=== PATIENT | female | born 1960 | race African-American/Black ===

== ENCOUNTER 2016-07-08 13:05 | Inpatient (IN) | payer OTHER ==
[~2016-07-08] VITALS: Ht 170.2 cm; Wt 62.9 kg
[~2016-07-08 13:05] MED LIST: ACLI400A2 IH; ALBU8HFA IH; BUDE10.2 IH; FLUC10SU PO; FLUT16H NASAL; GUAI-787 PO; MONT10TA21 PO; OXYC-158 PO; PANT40TA25 PO; PRED10 PO; PRED20 PO; PRED5 PO; PROMVCC5L PO; SUMA25TA9 PO; TOPI100 PO
[2016-07-08] MEDS ORDERED: ALBUTEROL SULFATE 2.5 MG/0.5 ML NEB SOLUTION NEB ONE (13:15)
[2016-07-08] MEDS ORDERED: IPRATROPIUM BROMIDE 0.5 MG/2.5 ML NEB SOLUTION NEB ONE ×4 (13:26→14:30)
[2016-07-08] MEDS ORDERED: ALBUTEROL SULFATE 5 MG/ML 20 ML NEB SOLN [BULK] NEB ONE ×3 (13:26→13:30)
[2016-07-08] MEDS ORDERED: DEXAMETHASONE SOD PHOS 4 MG/ML 5 ML VIAL IVP ONE (13:30)
[2016-07-08] MEDS ORDERED: LORazepam 2 MG/ML VIAL IVP ONE (13:45)
[2016-07-08] MEDS ORDERED: SODIUM CHLORIDE 0.9% 1,000 ML IV ONE ×2 (14:30→15:00)
[2016-07-08] MEDS ORDERED: LEVALBUTEROL HCL 1.25 MG/0.5 ML NEB SOLUTION NEB ONE (14:30)
[2016-07-08 14:54] LABS: BASOPHILS # (AUTO) 0.04 K/uL (0.00-0.20); BASOPHILS % (AUTO) 0.4 % (0.0-2.0); EOSINOPHILS # (AUTO) 4.65 K/uL (0.00-0.70); HEMATOCRIT 44.6 % (36-46); HEMOGLOBIN 14.3 g/dL (12.0-16.0); LYMPHOCYTES # (AUTO) 1.3 K/uL (1.0-4.8); LYMPHOCYTES % (AUTO) 12.3 % (22.0-44.0); MEAN CORPUSCULAR HEMOGLOBIN 29.5 pg (26.0-34.0); MEAN CORPUSCULAR VOLUME 92 fL (80-100); MONOCYTES # (AUTO) 0.6 K/uL (0.1-1.0); MONOCYTES % (AUTO) 5.6 % (2.0-9.0); NEUTROPHILS # (AUTO) 3.8 K/uL (1.8-7.7); NEUTROPHILS % (AUTO) 36.6 % (40.0-70.0); PLATELET COUNT (AUTO) 266 K/uL (150-450); RED BLOOD CELL COUNT(AUTO) 4.84 MIL/uL (4.00-5.20); RED CELL DISTRIBUTION WIDTH 15.2 % (11.5-14.5); WHITE BLOOD COUNT (AUTO) 10.3 K/uL (4.5-11.0)
[2016-07-08 14:55] LABS: EOSINOPHILS % (AUTO) 45.12 % (1.0-6.0)
[2016-07-08 15:04] LABS: ALBUMIN 3.3 g/dL (3.4-5.0); BILIRUBIN,TOTAL 0.3 mg/dL (0.1-1.0); CALCIUM, TOTAL 8.5 mg/dL (8.8-10.5); CREATININE 1.15 mg/dL (0.60-1.30); TOTAL PROTEIN, SERUM 6.4 g/dL (6.4-8.2)
[2016-07-08 18:56] VITALS: BP 159/77
[2016-07-08] MEDS ORDERED: ALBUTEROL SULFATE 2.5 MG/0.5 ML NEB SOLUTION NEB SCH (19:00)
[2016-07-08] MEDS ORDERED: IPRATROPIUM BROMIDE 0.5 MG/2.5 ML NEB SOLUTION NEB SCH (19:00)
[2016-07-08] MEDS ORDERED: POTASSIUM CHLORIDE 20 MEQ ER TABLET PO PRN ×3 (19:00→22:00)
[2016-07-08] MEDS ORDERED: POTASSIUM CHL 10 MEQ/WATER 50 ML IV PRN ×2 (19:00→22:00)
[2016-07-08 19:15] LABS: ABG A-A DIFF O2 28.6 mmHg (10-20.0); ABG BASE EXCESS -6.2 mmol/L (-2.0-3.0); ABG HCO3 19.9 mmol/L (22.0-26.0); ABG OXYHEMOGLOBIN 91.7 % (94.0-100.0); ABG PCO2 36 mmHg (35-45); ABG PH 7.346 (7.35-7.450); ALLEN TEST, BLOOD GAS Positive; TEMPERATURE, FAHRENHEIT, BG 98.6 FAHREN (96.0-98.6)
[2016-07-08 19:41] VITALS: BP 133/88
[2016-07-08] MEDS ORDERED: HEPARIN SODIUM,PORCINE 5,000 UNITS/ML VIAL SQ SCH (21:00)
[2016-07-08] MEDS ORDERED: MAGNESIUM HYDROXIDE SUSPENSION 30 ML UDCUP PO PRN (22:00)
[2016-07-08] MEDS ORDERED: SODIUM CHLORIDE 0.45% 1,000 ML IV ONE (22:00)
[2016-07-08] MEDS ORDERED: ACETAMINOPHEN 325 MG TABLET PO PRN (22:00)
[2016-07-08] MEDS: HEPARIN SODIUM,PORCINE 5,000 UNITS/ML VIAL SQ SCH (23:12)
[2016-07-08] MEDS: MethylPREDNISolone SOD SUCC 125 MG/2 ML VIAL IVP SCH (23:15)
[2016-07-08] MEDS: ALBUTEROL SULFATE 2.5 MG/0.5 ML NEB SOLUTION NEB SCH (23:18)
[2016-07-08] MEDS: IPRATROPIUM BROMIDE 0.5 MG/2.5 ML NEB SOLUTION NEB SCH (23:19)
[2016-07-08] MEDS: OxyCODONE HCL/ACETAMINOPHEN 5-325 MG TABLET PO PRN (23:23)
[2016-07-08 23:32] VITALS: BP 138/94
[2016-07-09] MEDS ORDERED: MethylPREDNISolone SOD SUCC 40 MG/ML VIAL IVP SCH
[2016-07-09] MEDS: ALBUTEROL SULFATE 2.5 MG/0.5 ML NEB SOLUTION NEB SCH ×6 (03:07→23:22)
[2016-07-09] MEDS: IPRATROPIUM BROMIDE 0.5 MG/2.5 ML NEB SOLUTION NEB SCH ×6 (03:07→23:22)
[2016-07-09 04:52] VITALS: BP 134/90
[2016-07-09] MEDS: MethylPREDNISolone SOD SUCC 125 MG/2 ML VIAL IVP SCH ×4 (05:58→23:51)
[2016-07-09 07:16] LABS: ANION GAP 13 mmol/L (8-16); CALCIUM, TOTAL 8.4 mg/dL (8.8-10.5); CARBON DIOXIDE 20 mmol/L (22-29); CHLORIDE 113 mmol/L (98-107); CREATININE 1.09 mg/dL (0.60-1.30); GLOMERULAR FILTR. RATE CALC > 60 mL/min (>60); POTASSIUM 3.6 mmol/L (3.5-5.1); SODIUM SERUM 146 mmol/L (136-145); UREA NITROGEN, BLOOD 9 mg/dL (7-18)
[2016-07-09 07:37] VITALS: BP 145/65
[2016-07-09] MEDS ORDERED: POTASSIUM CHLORIDE 20 MEQ ER TABLET PO PRN (07:45)
[2016-07-09] MEDS: OxyCODONE HCL/ACETAMINOPHEN 5-325 MG TABLET PO PRN ×2 (08:00→17:34)
[2016-07-09] MEDS: HEPARIN SODIUM,PORCINE 5,000 UNITS/ML VIAL SQ SCH ×3 (08:00→23:51)
[2016-07-09] MEDS: POTASSIUM CHLORIDE 20 MEQ ER TABLET PO PRN (08:00)
[2016-07-09] MEDS: ASPIRIN 81 MG CHEWABLE TABLET PO SCH (08:01)
[2016-07-09] MEDS: PANTOPRAZOLE SODIUM 40 MG DR TABLET PO SCH (08:01)
[2016-07-09] MEDS: DOCUSATE SODIUM 100 MG CAPSULE PO SCH ×2 (08:02→20:34)
[2016-07-09] MEDS ORDERED: PANTOPRAZOLE SODIUM 40 MG DR TABLET PO SCH (09:00)
[2016-07-09 11:30] VITALS: BP 155/103
[2016-07-09 14:48] LABS: APPEARANCE,URINE CLEAR (CLEAR); GLUCOSE, URINE (UA) NEGATIVE (NEGATIVE); KETONES,URINE NEGATIVE (NEGATIVE); LEUKOCYTE ESTERASE ,URINE NEGATIVE (NEGATIVE); OCCULT BLOOD,URINE NEGATIVE (NEGATIVE); PROTEIN,URINE NEGATIVE (NEGATIVE)
[2016-07-09 14:52] LABS: ADD UA MICROSCOPIC NO
[2016-07-09 15:27] VITALS: BP 150/80
[2016-07-09 20:19] VITALS: BP 151/81
[2016-07-09] MEDS: BENZONATATE 100 MG CAPSULE PO SCH (20:33)
[2016-07-09] MEDS: GuaiFENesin/CODEINE [SUGAR FREE] 200-20MG/10 ML SYRUP UDCUP PO PRN (20:34)
[2016-07-09] MEDS: ZOLPIDEM TARTRATE 5 MG TABLET PO PRN (23:51)
[2016-07-10] VITALS (8 sets, daily range): BP systolic 130–162; BP diastolic 80–106
[2016-07-10] MEDS: SUMAtriptan SUCCINATE 25 MG TABLET PO PRN ×2 (02:03→15:53)
[2016-07-10] MEDS: GuaiFENesin/D-METHORPHAN [SUGAR-FREE] 200-20MG/10 ML SYRUP UDCUP PO PRN ×2 (02:03→08:29)
[2016-07-10] MEDS: IPRATROPIUM BROMIDE 0.5 MG/2.5 ML NEB SOLUTION NEB SCH ×6 (03:00→23:08)
[2016-07-10] MEDS: ALBUTEROL SULFATE 2.5 MG/0.5 ML NEB SOLUTION NEB SCH ×6 (03:00→23:08)
[2016-07-10] MEDS: MethylPREDNISolone SOD SUCC 125 MG/2 ML VIAL IVP SCH ×4 (06:07→23:11)
[2016-07-10 06:31] LABS: ANION GAP 10 mmol/L (8-16); CALCIUM, TOTAL 8.8 mg/dL (8.8-10.5); CARBON DIOXIDE 23 mmol/L (22-29); CHLORIDE 113 mmol/L (98-107); CREATININE 0.97 mg/dL (0.60-1.30); GLOMERULAR FILTR. RATE CALC > 60 mL/min (>60); POTASSIUM 3.9 mmol/L (3.5-5.1); SODIUM SERUM 146 mmol/L (136-145); UREA NITROGEN, BLOOD 12 mg/dL (7-18)
[2016-07-10] MEDS: HEPARIN SODIUM,PORCINE 5,000 UNITS/ML VIAL SQ SCH ×3 (08:29→23:12)
[2016-07-10] MEDS: PANTOPRAZOLE SODIUM 40 MG DR TABLET PO SCH (08:30)
[2016-07-10] MEDS: ASPIRIN 81 MG CHEWABLE TABLET PO SCH (08:30)
[2016-07-10] MEDS: BENZONATATE 100 MG CAPSULE PO SCH ×4 (08:30→20:51)
[2016-07-10] MEDS: DOCUSATE SODIUM 100 MG CAPSULE PO SCH ×2 (08:30→20:51)
[2016-07-10] MEDS: POTASSIUM CHLORIDE 20 MEQ ER TABLET PO PRN (12:09)
[2016-07-10] MEDS ORDERED: 0.9% SODIUM CHLORIDE 10 ML SYRINGE IVP PRN (15:15)
[2016-07-10] MEDS: GuaiFENesin/CODEINE [SUGAR FREE] 200-20MG/10 ML SYRUP UDCUP PO PRN (23:11)
[2016-07-10] MEDS: OxyCODONE HCL/ACETAMINOPHEN 5-325 MG TABLET PO PRN (23:12)
[2016-07-11] MEDS: ZOLPIDEM TARTRATE 5 MG TABLET PO PRN (02:24)
[2016-07-11] MEDS: IPRATROPIUM BROMIDE 0.5 MG/2.5 ML NEB SOLUTION NEB SCH ×4 (03:00→12:20)
[2016-07-11] MEDS: ALBUTEROL SULFATE 2.5 MG/0.5 ML NEB SOLUTION NEB SCH ×4 (03:00→12:20)
[2016-07-11 04:35] VITALS: BP 146/91
[2016-07-11] MEDS: MethylPREDNISolone SOD SUCC 125 MG/2 ML VIAL IVP SCH ×2 (06:13→11:59)
[2016-07-11 07:35] VITALS: BP 147/93
[2016-07-11 07:39] VITALS: BP 121/78
[2016-07-11] MEDS: HEPARIN SODIUM,PORCINE 5,000 UNITS/ML VIAL SQ SCH (08:53)
[2016-07-11] MEDS: ASPIRIN 81 MG CHEWABLE TABLET PO SCH (08:53)
[2016-07-11] MEDS: DOCUSATE SODIUM 100 MG CAPSULE PO SCH (08:54)
[2016-07-11] MEDS: BENZONATATE 100 MG CAPSULE PO SCH ×2 (08:54→11:59)
[2016-07-11] MEDS: PANTOPRAZOLE SODIUM 40 MG DR TABLET PO SCH (08:54)
[2016-07-11 11:28] VITALS: BP 158/116
[2016-07-11] MEDS: GuaiFENesin/CODEINE [SUGAR FREE] 200-20MG/10 ML SYRUP UDCUP PO PRN (11:59)
== END 2016-07-11 14:05 | disposition home or self-care (01) | DRG 140 ==
LOC: EMS 13:07 → 5S 17:57
PROVIDERS: ADMIT Internal Medicine; ATTEND Internal Medicine
DX: J44.1 Chronic obstructive pulmonary disease with (acute) exacerbation (principal); J96.21 Acute and chronic respiratory failure with hypoxia; E87.0 Hyperosmolality and hypernatremia; E44.0 Moderate protein-calorie malnutrition; J45.901 Unspecified asthma with (acute) exacerbation; E87.6 Hypokalemia; F19.10 Other psychoactive substance abuse, uncomplicated; I10 Essential (primary) hypertension; G43.909 Migraine, unspecified, not intractable, without status migrainosus; F14.10 Cocaine abuse, uncomplicated; F17.210 Nicotine dependence, cigarettes, uncomplicated; F15.10 Other stimulant abuse, uncomplicated; Z91.19 Patient's noncompliance with other medical treatment and regimen; Z88.5 Allergy status to narcotic agent; Z79.52 Long term (current) use of systemic steroids; Z79.899 Other long term (current) drug therapy; Z90.49 Acquired absence of other specified parts of digestive tract; Z68.21 Body mass index [BMI] 21.0-21.9, adult
CPT/HCPCS: 82805; 84132; 94640; 94644; 94660; 96361; 96374; 96375; 99291; J1100; J1644; J2060; J2930; J7030

== ENCOUNTER 2016-08-17 18:59 | Emergency (ER) | payer OTHER ==
[~2016-08-17] VITALS: Ht 170.2 cm; Wt 58.6 kg
[~2016-08-17 18:59] MED LIST changes: -FLUC10SU PO; -FLUT16H NASAL; -GUAI-787 PO; -OXYC-158 PO
[2016-08-17] MEDS ORDERED: 0.9% SODIUM CHLORIDE 5 ML NEB SOLUTION NEB ONE (19:12)
[2016-08-17] MEDS ORDERED: ALBUTEROL SULFATE 5 MG/ML 20 ML NEB SOLN [BULK] NEB ONE (19:15)
[2016-08-17] MEDS ORDERED: IPRATROPIUM BROMIDE 0.5 MG/2.5 ML NEB SOLUTION NEB ONE ×2 (19:15→23:00)
[2016-08-17] MEDS ORDERED: MethylPREDNISolone SOD SUCC 125 MG/2 ML VIAL IVP ONE ×2 (19:30→23:00)
[2016-08-17] MEDS ORDERED: MORPHINE SULFATE 2 MG/ML SYRINGE IVP ONE (19:45)
[2016-08-17] MEDS ORDERED: CefTRIAXone 1 GM/DEXTROSE 50 ML IV ONE (19:45)
[2016-08-17] MEDS ORDERED: ONDANSETRON HCL 4 MG/2 ML VIAL IVP ONE (19:45)
[2016-08-17 20:08] LABS: BASOPHILS # (AUTO) 0.08 K/uL (0.00-0.20); BASOPHILS % (AUTO) 0.6 % (0.0-2.0); EOSINOPHILS # (AUTO) 4.35 K/uL (0.00-0.70); EOSINOPHILS % (AUTO) 34.13 % (1.0-6.0); HEMATOCRIT 44.5 % (36-46); HEMOGLOBIN 14.4 g/dL (12.0-16.0); LYMPHOCYTES # (AUTO) 2.1 K/uL (1.0-4.8); LYMPHOCYTES % (AUTO) 16.5 % (22.0-44.0); MEAN CORPUSCULAR HEMOGLOBIN 29.5 pg (26.0-34.0); MEAN CORPUSCULAR HGB CONC 32.3 G/dL (31.0-37.0); MEAN CORPUSCULAR VOLUME 91 fL (80-100); MONOCYTES # (AUTO) 0.8 K/uL (0.1-1.0); MONOCYTES % (AUTO) 6.5 % (2.0-9.0); NEUTROPHILS # (AUTO) 5.4 K/uL (1.8-7.7); NEUTROPHILS % (AUTO) 42.2 % (40.0-70.0); PLATELET COUNT (AUTO) 297 K/uL (150-450); RED BLOOD CELL COUNT(AUTO) 4.87 MIL/uL (4.00-5.20); RED CELL DISTRIBUTION WIDTH 14.6 % (11.5-14.5); WHITE BLOOD COUNT (AUTO) 12.7 K/uL (4.5-11.0)
[2016-08-17 20:14] LABS: ALBUMIN 3.6 g/dL (3.4-5.0); BILIRUBIN,TOTAL 0.2 mg/dL (0.1-1.0); CALCIUM, TOTAL 8.9 mg/dL (8.8-10.5); CREATININE 1.27 mg/dL (0.60-1.30); TOTAL PROTEIN, SERUM 6.8 g/dL (6.4-8.2)
[2016-08-17] MEDS ORDERED: POTASSIUM CHLORIDE 20 MEQ ER TABLET PO ONE (20:45)
[2016-08-17] MEDS ORDERED: ALBUTEROL SULFATE 2.5 MG/0.5 ML NEB SOLUTION NEB ONE (23:00)
[2016-08-18 01:43] VITALS: BP 120/66
== END 2016-08-18 01:50 | disposition home or self-care (01) ==
LOC: EMS 19:01
DX: J45.909 Unspecified asthma, uncomplicated (principal); Z88.5 Allergy status to narcotic agent
CPT/HCPCS: 36415; 71020; 80053; 84484; 85025; 93005; 94640 ×2; 96365; 96375; 96376; 99285; J0696; J2270; J2405; J2930; J7611; J7613

== ENCOUNTER 2016-12-07 15:41 | Emergency (ER) | payer OTHER ==
[~2016-12-07] VITALS: Ht 167.6 cm; Wt 56.8 kg
[~2016-12-07 15:41] MED LIST changes: -ACLI400A2 IH; +AUD NEB; -BUDE10.2 IH; -MONT10TA21 PO; -PANT40TA25 PO; -PROMVCC5L PO; -TOPI100 PO
[2016-12-07] MEDS ORDERED: DILT30 PO (15:59)
[2016-12-07] MEDS ORDERED: OMEP20 PO (15:59)
[2016-12-07] MEDS ORDERED: TOPI25 PO (15:59)
[2016-12-07] MEDS ORDERED: FURO20 PO (15:59)
[2016-12-07] MEDS ORDERED: MONT10TA21 PO (15:59)
[2016-12-07] MEDS ORDERED: ALBUTEROL SULFATE 2.5 MG/0.5 ML NEB SOLUTION NEB ONE (16:30)
[2016-12-07] MEDS ORDERED: IPRATROPIUM BROMIDE 0.5 MG/2.5 ML NEB SOLUTION NEB ONE (16:30)
[2016-12-07 17:09] LABS: HEMATOCRIT 40.8 % (36-46); HEMOGLOBIN 13.7 g/dL (12.0-16.0); MEAN CORPUSCULAR HEMOGLOBIN 30.5 pg (26.0-34.0); MEAN CORPUSCULAR HGB CONC 33.6 G/dL (31.0-37.0); MEAN CORPUSCULAR VOLUME 91 fL (80-100); PLATELET COUNT (AUTO) 222 K/uL (150-450); WHITE BLOOD COUNT (AUTO) 8.2 K/uL (4.5-11.0)
[2016-12-07 17:22] LABS: ANION GAP 9 mmol/L (8-16); CALCIUM, TOTAL 8.5 mg/dL (8.8-10.5); CARBON DIOXIDE 24 mmol/L (22-29); CHLORIDE 114 mmol/L (98-107); CREATININE 1.44 mg/dL (0.60-1.30); GLOMERULAR FILTR. RATE CALC 46 mL/min (>60); POTASSIUM 3.4 mmol/L (3.5-5.1); PROTHROMBIN TIME 10.1 SEC (9.4-11.6); SODIUM SERUM 147 mmol/L (136-145); UREA NITROGEN, BLOOD 10 mg/dL (7-18)
[2016-12-07 17:37] LABS: B-TYPE NATRIURETIC PEPTIDE 58 pg/mL (0-100)
[2016-12-07 17:50] LABS: ALANINE AMINOTRANSFERASE 13 U/L (12-78); ALBUMIN 3.4 g/dL (3.4-5.0); ASPARTATE AMINOTRANSFERASE 18 U/L (15-37); BILIRUBIN,TOTAL 0.4 mg/dL (0.1-1.0); CREATINE KINASE MB 2.7 ng/mL (0-5); CREATINE KINASE, TOTAL 223 U/L (26-192)
[2016-12-07 18:19] LABS: EOSINOPHILS % (MANUAL) 30 % (1-6); LYMPHOCYTES % (MANUAL) 8 % (22-44); TOTAL CELLS COUNTED 100
[2016-12-07 18:22] LABS: RBC MORPHOLOGY COMMENT NORMAL RBC MORPH
[2016-12-07] MEDS ORDERED: TraMADol HCL 50 MG TABLET PO ONE (19:15)
[2016-12-07 19:47] LABS: APPEARANCE,URINE CLEAR (CLEAR); GLUCOSE, URINE (UA) NEGATIVE (NEGATIVE); KETONES,URINE NEGATIVE (NEGATIVE); LEUKOCYTE ESTERASE ,URINE NEGATIVE (NEGATIVE); OCCULT BLOOD,URINE NEGATIVE (NEGATIVE); PROTEIN,URINE NEGATIVE (NEGATIVE)
[2016-12-07 19:48] LABS: ADD UA MICROSCOPIC NO
[2016-12-07 20:10] VITALS: BP 135/56
== END 2016-12-07 20:14 | disposition home or self-care (01) ==
LOC: EMS 15:43
DX: S20.219A Contusion of unspecified front wall of thorax, initial encounter (principal); I10 Essential (primary) hypertension; J44.9 Chronic obstructive pulmonary disease, unspecified; J45.909 Unspecified asthma, uncomplicated; F14.10 Cocaine abuse, uncomplicated; W18.39XA Other fall on same level, initial encounter; Y93.89 Activity, other specified; Y92.89 Other specified places as the place of occurrence of the external cause; Y99.8 Other external cause status
CPT/HCPCS: 36415; 71010; 71250; 80053; 80307; 81003; 82550; 82553; 83880; 84484; 85025; 85610; 85730; 93005; 94640; 99285; J7613

== ENCOUNTER 2016-12-29 08:13 | Inpatient (IN) | payer OTHER ==
[~2016-12-29] VITALS: Ht 167.6 cm; Wt 62.5 kg
[~2016-12-29 08:13] MED LIST changes: +DILT30 PO; +FURO20 PO; +MONT10TA21 PO; +OMEP20 PO; -PRED10 PO; -PRED20 PO; -PRED5 PO; +TOPI25 PO
[2016-12-29] MEDS ORDERED: ALBUTEROL SULFATE 5 MG/ML 20 ML NEB SOLN [BULK] NEB ONE (08:30)
[2016-12-29] MEDS ORDERED: MethylPREDNISolone SOD SUCC 125 MG/2 ML VIAL IVP ONE (08:30)
[2016-12-29] MEDS ORDERED: IPRATROPIUM BROMIDE 0.5 MG/2.5 ML NEB SOLUTION NEB ONE (08:30)
[2016-12-29] MEDS ORDERED: 0.9% SODIUM CHLORIDE 15 ML NEB SOLUTION NEB ONE ×2 (08:41→08:48)
[2016-12-29 08:57] LABS: BASOPHILS % (AUTO) 0.7 % (0.0-2.0); HEMATOCRIT 41.7 % (36-46); HEMOGLOBIN 13.9 g/dL (12.0-16.0); LYMPHOCYTES # (AUTO) 1.3 K/uL (1.0-4.8); LYMPHOCYTES % (AUTO) 23.9 % (22.0-44.0); MEAN CORPUSCULAR HEMOGLOBIN 30.3 pg (26.0-34.0); MEAN CORPUSCULAR HGB CONC 33.3 G/dL (31.0-37.0); MEAN CORPUSCULAR VOLUME 91 fL (80-100); MONOCYTES # (AUTO) 0.4 K/uL (0.1-1.0); MONOCYTES % (AUTO) 6.9 % (2.0-9.0); NEUTROPHILS # (AUTO) 1.9 K/uL (1.8-7.7); NEUTROPHILS % (AUTO) 33.8 % (40.0-70.0); PLATELET COUNT (AUTO) 320 K/uL (150-450); RED CELL DISTRIBUTION WIDTH 14.8 % (11.5-14.5)
[2016-12-29 09:02] LABS: EOSINOPHILS % (AUTO) 34.7 % (1.0-6.0)
[2016-12-29 09:19] LABS: ANION GAP 6 mmol/L (8-16); CARBON DIOXIDE 30 mmol/L (22-29); CHLORIDE 111 mmol/L (98-107); CREATININE 1.16 mg/dL (0.60-1.30); GLOMERULAR FILTR. RATE CALC 59 mL/min (>60); GLUCOSE,RANDOM 101 mg/dL (70-110); POTASSIUM 4.3 mmol/L (3.5-5.1); SODIUM SERUM 147 mmol/L (136-145); UREA NITROGEN, BLOOD 13 mg/dL (7-18)
[2016-12-29 09:23] LABS: B-TYPE NATRIURETIC PEPTIDE 35 pg/mL (0-100)
[2016-12-29 09:25] LABS: ALANINE AMINOTRANSFERASE 16 U/L (12-78); ALBUMIN 3.4 g/dL (3.4-5.0); ALKALINE PHOSPHATASE 107 U/L (46-116); ASPARTATE AMINOTRANSFERASE 15 U/L (15-37); BILIRUBIN,TOTAL 0.1 mg/dL (0.1-1.0); CREATINE KINASE, TOTAL 62 U/L (26-192); TOTAL PROTEIN, SERUM 6.5 g/dL (6.4-8.2)
[2016-12-29] MEDS ORDERED: SODIUM CHLORIDE 0.9% 1,000 ML IV ONE (09:30)
[2016-12-29] MEDS ORDERED: IBUPROFEN 600 MG TABLET PO ONE (10:00)
[2016-12-29] MEDS ORDERED: ACETAMINOPHEN 325 MG TABLET PO PRN ×2 (10:00→13:45)
[2016-12-29] MEDS ORDERED: ONDANSETRON HCL 4 MG/2 ML VIAL IVP PRN (10:00)
[2016-12-29] MEDS: IPRATROPIUM BROMIDE 0.5 MG/2.5 ML NEB SOLUTION NEB SCH ×6 (10:29→23:00)
[2016-12-29] MEDS: ALBUTEROL SULFATE 2.5 MG/0.5 ML NEB SOLUTION NEB SCH ×6 (10:29→23:00)
[2016-12-29 12:38] VITALS: BP 135/80
[2016-12-29] MEDS ORDERED: MORPHINE SULFATE 2 MG/ML SYRINGE IVP PRN (13:45)
[2016-12-29] MEDS ORDERED: BISACODYL 10 MG RECTAL RECTAL SUPPOSITORY PR PRN (13:45)
[2016-12-29] MEDS ORDERED: MAGNESIUM HYDROXIDE SUSPENSION 30 ML UDCUP PO PRN (13:45)
[2016-12-29] MEDS ORDERED: CefTRIAXone 1 GM/DEXTROSE 50 ML IV SCH (13:45)
[2016-12-29] MEDS ORDERED: AZITHROMYCIN 500 MG/NS 250 ML IV SCH (13:45)
[2016-12-29] MEDS ORDERED: SODIUM CHLORIDE 0.9% 250 ML IV ONE (15:10)
[2016-12-29] MEDS: HYDROCODONE/ACETAMINOPHEN 5-325 MG TABLET PO PRN ×2 (15:20→20:00)
[2016-12-29] MEDS: BENZONATATE 100 MG CAPSULE PO SCH ×2 (15:20→20:01)
[2016-12-29] MEDS: HEPARIN SODIUM,PORCINE 5,000 UNITS/ML VIAL SQ SCH ×2 (15:21→23:07)
[2016-12-29] MEDS: DILTIAZEM HCL 30 MG TABLET PO SCH ×2 (15:21→20:01)
[2016-12-29 15:43] VITALS: BP 144/82
[2016-12-29] MEDS: LORazepam 1 MG TABLET PO PRN ×2 (17:04→22:58)
[2016-12-29] MEDS: MethylPREDNISolone SOD SUCC 125 MG/2 ML VIAL IVP SCH ×2 (17:05→23:06)
[2016-12-29 18:10] LABS: ABG A-A DIFF O2 51.5 mmHg (10-20.0); ABG BASE EXCESS -10.1 mmol/L (-2.0-3.0); ABG CARBOXYHEMOGLOBIN 0.5 % (0.0-1.5); ABG HCO3 17.6 mmol/L (22.0-26.0); ABG METHEMOGLOBIN 0.3 % (0.0-1.5); ABG OXYGEN CONTENT 18.8 mL/dL (15.0-23.0); ABG OXYGEN SATURATION 98.4 % (95.0-98.0); ABG OXYHEMOGLOBIN 97.6 % (94.0-100.0); ABG PCO2 30 mmHg (35-45); ABG PH 7.341 (7.35-7.450); ABG TOTAL HEMOGLOBIN 13.6 G/dL (12.0-18.0); PO2, ARTERIAL BG 113.1 mmHg (84.0-92.0); SOURCE, BLOOD GAS ARTERIAL; TEMPERATURE, FAHRENHEIT, BG 98.6 FAHREN (96.0-98.6)
[2016-12-29 18:11] LABS: O2 DEVICE,BLOOD GAS CANNULA (ROOM AIR); SITE, BLOOD GAS LFT RADIAL
[2016-12-29 19:43] VITALS: BP 142/80
[2016-12-29] MEDS: GuaiFENesin SR 600 MG ER TABLET PO SCH (20:00)
[2016-12-29] MEDS: DOCUSATE SODIUM 100 MG CAPSULE PO SCH (20:01)
[2016-12-29] MEDS: FUROSEMIDE 20 MG TABLET PO SCH (20:01)
[2016-12-29] MEDS: ZOLPIDEM TARTRATE 5 MG TABLET PO PRN (22:58)
[2016-12-29] MEDS: SUMAtriptan SUCCINATE 25 MG TABLET PO PRN (23:07)
[2016-12-30] MEDS: ALBUTEROL SULFATE 2.5 MG/0.5 ML NEB SOLUTION NEB SCH ×6 (02:00→19:36)
[2016-12-30] MEDS: IPRATROPIUM BROMIDE 0.5 MG/2.5 ML NEB SOLUTION NEB SCH ×6 (02:00→19:36)
[2016-12-30] MEDS: ALBUTEROL SULFATE 2.5 MG/0.5 ML NEB SOLUTION NEB PRN (03:49)
[2016-12-30] MEDS: IPRATROPIUM BROMIDE 0.5 MG/2.5 ML NEB SOLUTION NEB PRN (03:49)
[2016-12-30] MEDS: HYDROCODONE/ACETAMINOPHEN 5-325 MG TABLET PO PRN ×3 (04:26→20:14)
[2016-12-30] MEDS: MethylPREDNISolone SOD SUCC 125 MG/2 ML VIAL IVP SCH ×4 (05:47→23:04)
[2016-12-30 07:53] VITALS: BP 149/86
[2016-12-30] MEDS: GuaiFENesin SR 600 MG ER TABLET PO SCH ×2 (08:04→20:14)
[2016-12-30] MEDS: FUROSEMIDE 20 MG TABLET PO SCH ×2 (08:04→20:15)
[2016-12-30] MEDS: DILTIAZEM HCL 30 MG TABLET PO SCH ×4 (08:05→20:14)
[2016-12-30] MEDS: TOPIRAMATE 25 MG TABLET PO SCH (08:05)
[2016-12-30] MEDS: DOCUSATE SODIUM 100 MG CAPSULE PO SCH ×2 (08:05→20:14)
[2016-12-30] MEDS: MONTELUKAST SODIUM 10 MG TABLET PO SCH (08:05)
[2016-12-30] MEDS: PANTOPRAZOLE SODIUM 40 MG DR TABLET PO SCH (08:05)
[2016-12-30] MEDS: HEPARIN SODIUM,PORCINE 5,000 UNITS/ML VIAL SQ SCH ×3 (08:06→23:04)
[2016-12-30] MEDS: BENZONATATE 100 MG CAPSULE PO SCH ×3 (08:06→20:14)
[2016-12-30] MEDS: LORazepam 1 MG TABLET PO PRN ×2 (08:15→23:04)
[2016-12-30] MEDS: SUMAtriptan SUCCINATE 25 MG TABLET PO PRN ×2 (08:15→20:25)
[2016-12-30 12:00] VITALS: BP 138/82
[2016-12-30] MEDS: ONDANSETRON HCL 4 MG/2 ML VIAL IVP PRN ×2 (14:11→20:13)
[2016-12-30 19:48] VITALS: BP 149/99
[2016-12-30] MEDS: ZOLPIDEM TARTRATE 5 MG TABLET PO PRN (23:05)
[2016-12-30 23:48] VITALS: BP 145/88
[2016-12-31] MEDS: ALBUTEROL SULFATE 2.5 MG/0.5 ML NEB SOLUTION NEB SCH ×4 (02:00→19:36)
[2016-12-31] MEDS: IPRATROPIUM BROMIDE 0.5 MG/2.5 ML NEB SOLUTION NEB SCH ×4 (02:00→19:36)
[2016-12-31] MEDS: IPRATROPIUM BROMIDE 0.5 MG/2.5 ML NEB SOLUTION NEB PRN (02:59)
[2016-12-31] MEDS: ALBUTEROL SULFATE 2.5 MG/0.5 ML NEB SOLUTION NEB PRN (02:59)
[2016-12-31 04:19] VITALS: BP 131/81
[2016-12-31] MEDS: MethylPREDNISolone SOD SUCC 125 MG/2 ML VIAL IVP SCH ×2 (05:34→11:54)
[2016-12-31 07:35] VITALS: BP 140/95
[2016-12-31] MEDS: DILTIAZEM HCL 30 MG TABLET PO SCH ×4 (08:05→20:13)
[2016-12-31] MEDS: HEPARIN SODIUM,PORCINE 5,000 UNITS/ML VIAL SQ SCH ×3 (08:05→23:58)
[2016-12-31] MEDS: GuaiFENesin SR 600 MG ER TABLET PO SCH ×2 (08:06→20:12)
[2016-12-31] MEDS: BENZONATATE 100 MG CAPSULE PO SCH ×3 (08:06→20:12)
[2016-12-31] MEDS: PANTOPRAZOLE SODIUM 40 MG DR TABLET PO SCH (08:06)
[2016-12-31] MEDS: DOCUSATE SODIUM 100 MG CAPSULE PO SCH ×2 (08:06→20:12)
[2016-12-31] MEDS: MONTELUKAST SODIUM 10 MG TABLET PO SCH (08:06)
[2016-12-31] MEDS: FUROSEMIDE 20 MG TABLET PO SCH ×2 (08:06→20:12)
[2016-12-31] MEDS: LORazepam 1 MG TABLET PO PRN ×2 (08:07→16:35)
[2016-12-31] MEDS: TOPIRAMATE 25 MG TABLET PO SCH (08:07)
[2016-12-31] MEDS: HYDROCODONE/ACETAMINOPHEN 5-325 MG TABLET PO PRN ×2 (08:07→20:12)
[2016-12-31] MEDS ORDERED: IBUPROFEN 200 MG TABLET PO PRN (08:45)
[2016-12-31] MEDS: OXYGEN THERAPY IH SCH ×2 (09:10→19:36)
[2016-12-31 09:18] LABS: EOSINOPHILS % (AUTO) 0 % (1.0-6.0); HEMATOCRIT 38.5 % (36-46); HEMOGLOBIN 12.7 g/dL (12.0-16.0); LYMPHOCYTES # (AUTO) 0.8 K/uL (1.0-4.8); LYMPHOCYTES % (AUTO) 3.8 % (22.0-44.0); MEAN CORPUSCULAR HEMOGLOBIN 30.2 pg (26.0-34.0); MEAN CORPUSCULAR VOLUME 92 fL (80-100); MONOCYTES # (AUTO) 0.2 K/uL (0.1-1.0); NEUTROPHILS # (AUTO) 18.8 K/uL (1.8-7.7); PLATELET COUNT (AUTO) 294 K/uL (150-450); RED BLOOD CELL COUNT(AUTO) 4.21 MIL/uL (4.00-5.20); RED CELL DISTRIBUTION WIDTH 15.1 % (11.5-14.5)
[2016-12-31 09:22] LABS: NEUTROPHILS % (AUTO) 95.2 % (40.0-70.0)
[2016-12-31 09:29] LABS: ANION GAP 8 mmol/L (8-16); CALCIUM, TOTAL 8.5 mg/dL (8.8-10.5); CARBON DIOXIDE 26 mmol/L (22-29); CHLORIDE 109 mmol/L (98-107); CREATININE 1.03 mg/dL (0.60-1.30); GLOMERULAR FILTR. RATE CALC > 60 mL/min (>60); GLUCOSE,RANDOM 124 mg/dL (70-110); POTASSIUM 3.7 mmol/L (3.5-5.1); SODIUM SERUM 143 mmol/L (136-145); UREA NITROGEN, BLOOD 20 mg/dL (7-18)
[2016-12-31 11:51] VITALS: BP 122/80
[2016-12-31] MEDS: SUMAtriptan SUCCINATE 25 MG TABLET PO PRN ×2 (11:55→22:44)
[2016-12-31 15:46] VITALS: BP 144/78
[2016-12-31] MEDS: GuaiFENesin/CODEINE [SUGAR FREE] 200-20MG/10 ML SYRUP UDCUP PO PRN ×2 (16:29→22:44)
[2016-12-31] MEDS: MethylPREDNISolone SOD SUCC 40 MG/ML VIAL IVP SCH ×2 (17:00→23:57)
[2016-12-31 19:30] LABS: ABG A-A DIFF O2 25.9 mmHg (10-20.0); ABG BASE EXCESS -2.6 mmol/L (-2.0-3.0); ABG CARBOXYHEMOGLOBIN 0.8 % (0.0-1.5); ABG HCO3 22.6 mmol/L (22.0-26.0); ABG METHEMOGLOBIN 0.2 % (0.0-1.5); ABG OXYGEN CONTENT 17.6 mL/dL (15.0-23.0); ABG OXYGEN SATURATION 95.5 % (95.0-98.0); ABG OXYHEMOGLOBIN 94.5 % (94.0-100.0); ABG PCO2 39 mmHg (35-45); ABG PH 7.384 (7.35-7.450); ABG TOTAL HEMOGLOBIN 13.2 G/dL (12.0-18.0); O2 DEVICE,BLOOD GAS ROOM AIR (ROOM AIR); PO2, ARTERIAL BG 77.7 mmHg (84.0-92.0); SITE, BLOOD GAS RT RADIAL; SOURCE, BLOOD GAS ARTERIAL; TEMPERATURE, FAHRENHEIT, BG 98.6 FAHREN (96.0-98.6)
[2016-12-31 19:51] VITALS: BP 130/79
[2016-12-31] MEDS: ZOLPIDEM TARTRATE 5 MG TABLET PO PRN (23:58)
[2017-01-01] VITALS (7 sets, daily range): BP systolic 128–154; BP diastolic 76–99
[2017-01-01] MEDS: ALBUTEROL SULFATE 2.5 MG/0.5 ML NEB SOLUTION NEB SCH ×4 (04:05→20:09)
[2017-01-01] MEDS: IPRATROPIUM BROMIDE 0.5 MG/2.5 ML NEB SOLUTION NEB SCH ×4 (04:05→20:09)
[2017-01-01] MEDS: MethylPREDNISolone SOD SUCC 40 MG/ML VIAL IVP SCH ×4 (06:04→23:13)
[2017-01-01] MEDS: GuaiFENesin/CODEINE [SUGAR FREE] 200-20MG/10 ML SYRUP UDCUP PO PRN (06:04)
[2017-01-01] MEDS: OXYGEN THERAPY IH SCH ×2 (08:20→20:02)
[2017-01-01] MEDS: MONTELUKAST SODIUM 10 MG TABLET PO SCH (08:21)
[2017-01-01] MEDS: DOCUSATE SODIUM 100 MG CAPSULE PO SCH ×2 (08:21→20:02)
[2017-01-01] MEDS: TOPIRAMATE 25 MG TABLET PO SCH (08:21)
[2017-01-01] MEDS: PANTOPRAZOLE SODIUM 40 MG DR TABLET PO SCH (08:21)
[2017-01-01] MEDS: GuaiFENesin SR 600 MG ER TABLET PO SCH ×2 (08:21→20:02)
[2017-01-01] MEDS: FUROSEMIDE 20 MG TABLET PO SCH ×2 (08:21→19:57)
[2017-01-01] MEDS: HEPARIN SODIUM,PORCINE 5,000 UNITS/ML VIAL SQ SCH ×3 (08:21→23:13)
[2017-01-01] MEDS: DILTIAZEM HCL 30 MG TABLET PO SCH ×4 (08:21→20:02)
[2017-01-01] MEDS: SUMAtriptan SUCCINATE 25 MG TABLET PO PRN ×2 (08:22→17:46)
[2017-01-01] MEDS: BENZONATATE 100 MG CAPSULE PO SCH ×3 (08:22→20:02)
[2017-01-01] MEDS: HYDROCODONE/ACETAMINOPHEN 5-325 MG TABLET PO PRN (11:52)
[2017-01-01] MEDS: ONDANSETRON HCL 4 MG/2 ML VIAL IVP PRN (14:21)
[2017-01-01] MEDS: IPRATROPIUM BROMIDE 0.5 MG/2.5 ML NEB SOLUTION NEB PRN (14:58)
[2017-01-01] MEDS: ALBUTEROL SULFATE 2.5 MG/0.5 ML NEB SOLUTION NEB PRN (14:58)
[2017-01-01] MEDS: LORazepam 1 MG TABLET PO PRN (23:13)
[2017-01-01] MEDS: ZOLPIDEM TARTRATE 5 MG TABLET PO PRN (23:13)
[2017-01-02] MEDS: IPRATROPIUM BROMIDE 0.5 MG/2.5 ML NEB SOLUTION NEB SCH ×2 (03:06→07:35)
[2017-01-02] MEDS: ALBUTEROL SULFATE 2.5 MG/0.5 ML NEB SOLUTION NEB SCH ×2 (03:06→07:40)
[2017-01-02 04:32] VITALS: BP 130/74
[2017-01-02] MEDS: MethylPREDNISolone SOD SUCC 40 MG/ML VIAL IVP SCH (05:36)
[2017-01-02 07:22] VITALS: BP 168/99
[2017-01-02] MEDS: OXYGEN THERAPY IH SCH (07:41)
[2017-01-02] MEDS: HEPARIN SODIUM,PORCINE 5,000 UNITS/ML VIAL SQ SCH (09:11)
[2017-01-02] MEDS: DOCUSATE SODIUM 100 MG CAPSULE PO SCH (09:11)
[2017-01-02] MEDS: MONTELUKAST SODIUM 10 MG TABLET PO SCH (09:11)
[2017-01-02] MEDS: PANTOPRAZOLE SODIUM 40 MG DR TABLET PO SCH (09:11)
[2017-01-02] MEDS: FUROSEMIDE 20 MG TABLET PO SCH (09:12)
[2017-01-02] MEDS: DILTIAZEM HCL 30 MG TABLET PO SCH ×2 (09:12→13:23)
[2017-01-02] MEDS: GuaiFENesin SR 600 MG ER TABLET PO SCH (09:12)
[2017-01-02] MEDS: BENZONATATE 100 MG CAPSULE PO SCH (09:12)
[2017-01-02] MEDS: TOPIRAMATE 25 MG TABLET PO SCH (09:13)
[2017-01-02] MEDS: SUMAtriptan SUCCINATE 25 MG TABLET PO PRN (09:15)
[2017-01-02] MEDS: LORazepam 1 MG TABLET PO PRN (09:25)
[2017-01-02] MEDS: HYDROCODONE/ACETAMINOPHEN 5-325 MG TABLET PO PRN (09:31)
[2017-01-02 11:18] VITALS: BP 106/79
[2017-01-02 11:38] VITALS: BP 147/105
[2017-01-02] MEDS ORDERED: PredniSONE 20 MG TABLET PO SCH (12:00)
[2017-01-02 12:26] LABS: LYMPHOCYTES # (AUTO) 0.7 K/uL (1.0-4.8); MONOCYTES # (AUTO) 0.3 K/uL (0.1-1.0)
[2017-01-02 12:31] LABS: BASOPHILS % (AUTO) 0.2 % (0.0-2.0); EOSINOPHILS % (AUTO) 0.1 % (1.0-6.0); HEMATOCRIT 45.5 % (36-46); HEMOGLOBIN 15.1 g/dL (12.0-16.0); LYMPHOCYTES % (AUTO) 7.9 % (22.0-44.0); MEAN CORPUSCULAR HGB CONC 33.3 G/dL (31.0-37.0); MEAN CORPUSCULAR VOLUME 90 fL (80-100); MONOCYTES % (AUTO) 3.9 % (2.0-9.0); NEUTROPHILS # (AUTO) 7.3 K/uL (1.8-7.7); NEUTROPHILS % (AUTO) 87.9 % (40.0-70.0); PLATELET COUNT (AUTO) 256 K/uL (150-450); RED BLOOD CELL COUNT(AUTO) 5.05 MIL/uL (4.00-5.20); RED CELL DISTRIBUTION WIDTH 14.4 % (11.5-14.5)
[2017-01-02] MEDS ORDERED: BENZ-51 PO (12:32)
[2017-01-02] MEDS ORDERED: PRED10 PO (12:34)
[2017-01-02] MEDS ORDERED: GUAFACSF5L PO (12:35)
[2017-01-02] MEDS ORDERED: ZOLP5 PO (12:36)
[2017-01-02] MEDS ORDERED: IBUP-2354 PO (12:36)
[2017-01-02] MEDS ORDERED: SUMA25TA9 PO (12:38)
== END 2017-01-02 14:10 | disposition home or self-care (01) | DRG 140 ==
LOC: EMS 08:14 → 5S 11:44
PROVIDERS: ADMIT Internal Medicine; ATTEND Internal Medicine
DX: J44.1 Chronic obstructive pulmonary disease with (acute) exacerbation (principal); I11.0 Hypertensive heart disease with heart failure; I50.9 Heart failure, unspecified; F17.210 Nicotine dependence, cigarettes, uncomplicated; K21.9 Gastro-esophageal reflux disease without esophagitis; G43.909 Migraine, unspecified, not intractable, without status migrainosus; F14.10 Cocaine abuse, uncomplicated; J45.909 Unspecified asthma, uncomplicated; Z90.49 Acquired absence of other specified parts of digestive tract; Z91.19 Patient's noncompliance with other medical treatment and regimen; Z71.6 Tobacco abuse counseling; Z91.81 History of falling; Z79.899 Other long term (current) drug therapy
CPT/HCPCS: 82805; 84145; 93005; 94640; 94644; 96361; 96374; 99291; J0456; J0696; J1644; J2405; J2920; J2930; J7050

== ENCOUNTER 2017-02-15 19:05 | Emergency (ER) | payer OTHER ==
[~2017-02-15] VITALS: Ht 170.2 cm; Wt 55.9 kg
[~2017-02-15 19:05] MED LIST changes: -AUD NEB; +BENZ-51 PO; +GUAFACSF5L PO; +IBUP-2354 PO; +PRED10 PO; +ZOLP5 PO
[2017-02-15] MEDS ORDERED: ALBUTEROL SULFATE 5 MG/ML 20 ML NEB SOLN [BULK] NEB ONE ×4 (19:15→21:00)
[2017-02-15] MEDS ORDERED: MethylPREDNISolone SOD SUCC 125 MG/2 ML VIAL IM ONE (19:30)
[2017-02-15] MEDS ORDERED: IPRATROPIUM BROMIDE 0.5 MG/2.5 ML NEB SOLUTION NEB ONE ×2 (19:30)
[2017-02-15] MEDS ORDERED: 0.9% SODIUM CHLORIDE 15 ML NEB SOLUTION NEB ONE ×2 (19:34→21:02)
[2017-02-15] MEDS ORDERED: ONDANSETRON HCL 4 MG/2 ML VIAL IVP ONE (20:30)
[2017-02-15] MEDS ORDERED: MORPHINE SULFATE 4 MG/ML SYRINGE IVP ONE (20:30)
[2017-02-15] MEDS ORDERED: SODIUM CHLORIDE 0.9% 1,000 ML IV ONE (20:30)
[2017-02-15] MEDS ORDERED: DiphenhydrAMINE HCL 25 MG CAPSULE PO ONE (21:15)
[2017-02-16 01:06] VITALS: BP 127/70
== END 2017-02-16 01:51 | disposition home or self-care (01) ==
LOC: EMS 19:06
DX: J45.901 Unspecified asthma with (acute) exacerbation (principal); J44.1 Chronic obstructive pulmonary disease with (acute) exacerbation; I10 Essential (primary) hypertension; G43.909 Migraine, unspecified, not intractable, without status migrainosus; F14.90 Cocaine use, unspecified, uncomplicated
CPT/HCPCS: 94644; 94645; 96361; 96372; 96374; 96375; 99291; J2270; J2405; J2930; J7030; J7611

== ENCOUNTER 2017-06-11 13:02 | Inpatient (IN) | payer OTHER ==
[~2017-06-11] VITALS: Ht 167.6 cm; Wt 60.0 kg
[~2017-06-11 13:02] MED LIST changes: +ALPR0.255 PO; -BENZ-51 PO; -GUAFACSF5L PO; -PRED10 PO; +PRED5 PO; +TUSSI5L PO
[2017-06-11] MEDS ORDERED: IPRATROPIUM BROMIDE 0.5 MG/2.5 ML NEB SOLUTION NEB ONE ×2 (13:15→15:15)
[2017-06-11] MEDS ORDERED: ALBUTEROL SULFATE 5 MG/ML 20 ML NEB SOLN [BULK] NEB ONE ×2 (13:15→15:15)
[2017-06-11] MEDS ORDERED: 0.9% SODIUM CHLORIDE 15 ML NEB SOLUTION NEB ONE ×2 (13:25→15:26)
[2017-06-11] MEDS ORDERED: FUROSEMIDE 40 MG/4 ML VIAL IVP ONE (13:30)
[2017-06-11] MEDS ORDERED: MethylPREDNISolone SOD SUCC 125 MG/2 ML VIAL IVP ONE (13:30)
[2017-06-11 13:42] LABS: BASOPHILS % (AUTO) 1.3 % (0.0-2.0); EOSINOPHILS % (AUTO) 23.4 % (1.0-6.0); HEMATOCRIT 41.6 % (36-46); HEMOGLOBIN 13.9 g/dL (12.0-16.0); LYMPHOCYTES # (AUTO) 1.1 K/uL (1.0-4.8); LYMPHOCYTES % (AUTO) 16.8 % (22.0-44.0); MEAN CORPUSCULAR HEMOGLOBIN 29.7 pg (26.0-34.0); MEAN CORPUSCULAR HGB CONC 33.4 G/dL (31.0-37.0); MEAN CORPUSCULAR VOLUME 89 fL (80-100); MONOCYTES # (AUTO) 0.7 K/uL (0.1-1.0); MONOCYTES % (AUTO) 9.9 % (2.0-9.0); NEUTROPHILS # (AUTO) 3.2 K/uL (1.8-7.7); NEUTROPHILS % (AUTO) 48.6 % (40.0-70.0); PLATELET COUNT (AUTO) 297 K/uL (150-450); RED BLOOD CELL COUNT(AUTO) 4.69 MIL/uL (4.00-5.20); RED CELL DISTRIBUTION WIDTH 15.2 % (11.5-14.5)
[2017-06-11 13:54] LABS: ANION GAP 10 mmol/L (8-16); CALCIUM, TOTAL 8.6 mg/dL (8.8-10.5); CARBON DIOXIDE 24 mmol/L (22-29); CHLORIDE 110 mmol/L (98-107); CREATININE 0.88 mg/dL (0.60-1.30); GLOMERULAR FILTR. RATE CALC > 60 mL/min (>60); GLUCOSE,RANDOM 101 mg/dL (70-110); POTASSIUM 3.3 mmol/L (3.5-5.1); SODIUM SERUM 144 mmol/L (136-145); UREA NITROGEN, BLOOD 8 mg/dL (7-18)
[2017-06-11 14:00] LABS: ALANINE AMINOTRANSFERASE 17 U/L (12-78); ALBUMIN 3.4 g/dL (3.4-5.0); ALKALINE PHOSPHATASE 112 U/L (46-116); ASPARTATE AMINOTRANSFERASE 15 U/L (15-37); BILIRUBIN,TOTAL 0.2 mg/dL (0.1-1.0); TOTAL PROTEIN, SERUM 6.5 g/dL (6.4-8.2)
[2017-06-11 14:06] LABS: B-TYPE NATRIURETIC PEPTIDE 18 pg/mL (0-100)
[2017-06-11 14:32] LABS: LACTIC ACID 1.5 mmol/L (0.4-2.0)
[2017-06-11 14:40] LABS: ABG A-A DIFF O2 16.7 mmHg (10-20.0); ABG CARBOXYHEMOGLOBIN 1.8 % (0.0-1.5); ABG HCO3 22.6 mmol/L (22.0-26.0); ABG METHEMOGLOBIN 0.3 % (0.0-1.5); ABG OXYGEN CONTENT 21.4 mL/dL (15.0-23.0); ABG OXYGEN SATURATION 99.4 % (95.0-98.0); ABG OXYHEMOGLOBIN 97.3 % (94.0-100.0); ABG PCO2 47 mmHg (35-45); ABG PH 7.326 (7.35-7.450); ABG TOTAL HEMOGLOBIN 15.3 G/dL (12.0-18.0); O2 DEVICE,BLOOD GAS AEROSOL MASK (ROOM AIR); PO2, ARTERIAL BG 214.7 mmHg (84.0-92.0); SITE, BLOOD GAS LFT RADIAL; SOURCE, BLOOD GAS ARTERIAL; TEMPERATURE, FAHRENHEIT, BG 98.4 FAHREN (96.0-98.6)
[2017-06-11] MEDS ORDERED: ACETAMINOPHEN 500 MG TABLET PO ONE (15:00)
[2017-06-11] MEDS ORDERED: 0.9% SODIUM CHLORIDE 10 ML SYRINGE IVP PRN (17:00)
[2017-06-11] MEDS ORDERED: ONDANSETRON HCL 4 MG/2 ML VIAL IVP PRN (17:00)
[2017-06-11] MEDS ORDERED: IPRATROPIUM BROMIDE 0.5 MG/2.5 ML NEB SOLUTION NEB PRN ×2 (17:00→17:45)
[2017-06-11] MEDS ORDERED: ALBUTEROL SULFATE 2.5 MG/0.5 ML NEB SOLUTION NEB PRN ×2 (17:00→17:45)
[2017-06-11] MEDS ORDERED: SODIUM CHLORIDE 0.9% 1,000 ML IV ONE (17:00)
[2017-06-11] MEDS ORDERED: ACETAMINOPHEN 325 MG TABLET PO PRN ×2 (17:00→17:45)
[2017-06-11 17:10] LABS: AMPHET/METH SCREEN,URINE NEGATIVE (NEGATIVE); BARBITURATE SCREEN, URINE NEGATIVE (NEGATIVE); BENZODIAZEPINES SCREEN,URINE NEGATIVE (NEGATIVE); CANNABINOID SCREEN,URINE NEGATIVE (NEGATIVE); COCAINE SCREEN,URINE POSITIVE (NEGATIVE); METHADONE SCREEN, URINE NEGATIVE (NEGATIVE); OPIATE SCREEN,URINE NEGATIVE (NEGATIVE)
[2017-06-11 17:20] LABS: PHENCYCLIDINE SCREEN,URINE NEGATIVE (NEGATIVE)
[2017-06-11 17:24] LABS: APPEARANCE,URINE CLEAR (CLEAR); BILIRUBIN,URINE NEGATIVE (NEGATIVE); GLUCOSE, URINE (UA) NEGATIVE (NEGATIVE); KETONES,URINE NEGATIVE (NEGATIVE); LEUKOCYTE ESTERASE ,URINE NEGATIVE (NEGATIVE); NITRATE,URINE NEGATIVE (NEGATIVE); OCCULT BLOOD,URINE NEGATIVE (NEGATIVE); PROTEIN,URINE NEGATIVE (NEGATIVE); UROBILINOGEN,URINE 0.2 mg/dL (<=1.0)
[2017-06-11 17:37] LABS: BACTERIA,URINE None Seen /HPF (None Seen); RBC,URINE None Seen /HPF (0-2); WBC,URINE None Seen /HPF (0-5)
[2017-06-11 17:38] LABS: SQUAMOUS EPITHELIAL CELL,UR None Seen /LPF (None Seen)
[2017-06-11] MEDS ORDERED: BISACODYL 10 MG RECTAL RECTAL SUPPOSITORY PR PRN (17:45)
[2017-06-11] MEDS ORDERED: MAGNESIUM HYDROXIDE SUSPENSION 30 ML UDCUP PO PRN (17:45)
[2017-06-11] MEDS ORDERED: IBUPROFEN 200 MG TABLET PO PRN (17:45)
[2017-06-11] MEDS ORDERED: ZOLPIDEM TARTRATE 5 MG TABLET PO PRN (17:45)
[2017-06-11] MEDS ORDERED: MORPHINE SULFATE 4 MG/ML SYRINGE IVP PRN (17:45)
[2017-06-11] MEDS: MethylPREDNISolone SOD SUCC 125 MG/2 ML VIAL IVP SCH ×2 (18:21→23:23)
[2017-06-11] MEDS: AZITHROMYCIN 500 MG/NS 250 ML IV SCH (18:54)
[2017-06-11] MEDS: IPRATROPIUM BROMIDE 0.5 MG/2.5 ML NEB SOLUTION NEB SCH ×2 (18:59→22:55)
[2017-06-11] MEDS: ALBUTEROL SULFATE 2.5 MG/0.5 ML NEB SOLUTION NEB SCH ×2 (18:59→22:55)
[2017-06-11] MEDS ORDERED: IPRATROPIUM BROMIDE 0.5 MG/2.5 ML NEB SOLUTION NEB SCH (19:00)
[2017-06-11] MEDS ORDERED: ALBUTEROL SULFATE 2.5 MG/0.5 ML NEB SOLUTION NEB SCH (19:00)
[2017-06-11] MEDS ORDERED: POTASSIUM CHLORIDE 20 MEQ ER TABLET PO ONE (19:30)
[2017-06-11] MEDS: FUROSEMIDE 20 MG TABLET PO SCH (21:00)
[2017-06-11] MEDS ORDERED: INFLUENZA VIRUS VACCINE QVS 2017-18 (3YR+)/PF 60 MCG/0.5 ML SYRINGE IM ONE (23:15)
[2017-06-11] MEDS ORDERED: -PHARMACY VACCINE NOTE- MISC ONE (23:15)
[2017-06-11] MEDS: HEPARIN SODIUM,PORCINE 5,000 UNITS/ML VIAL SQ SCH (23:23)
[2017-06-11] MEDS: DILTIAZEM HCL 30 MG TABLET PO SCH (23:23)
[2017-06-11] MEDS: DOCUSATE SODIUM 100 MG CAPSULE PO SCH (23:23)
[2017-06-11] MEDS: ZOLPIDEM TARTRATE 5 MG TABLET PO PRN (23:24)
[2017-06-11] MEDS: OxyCODONE HCL/ACETAMINOPHEN 5-325 MG TABLET PO PRN (23:24)
[2017-06-11 23:53] VITALS: BP 156/95
[2017-06-12] MEDS: ALBUTEROL SULFATE 2.5 MG/0.5 ML NEB SOLUTION NEB SCH ×6 (03:56→22:33)
[2017-06-12] MEDS: IPRATROPIUM BROMIDE 0.5 MG/2.5 ML NEB SOLUTION NEB SCH ×6 (03:56→22:33)
[2017-06-12 04:00] VITALS: BP 141/85
[2017-06-12] MEDS: MethylPREDNISolone SOD SUCC 125 MG/2 ML VIAL IVP SCH ×4 (06:50→23:54)
[2017-06-12] MEDS: OxyCODONE HCL/ACETAMINOPHEN 5-325 MG TABLET PO PRN ×2 (07:08→20:40)
[2017-06-12 08:16] VITALS: BP 134/78
[2017-06-12] MEDS: DILTIAZEM HCL 30 MG TABLET PO SCH ×4 (09:16→23:53)
[2017-06-12] MEDS: DOCUSATE SODIUM 100 MG CAPSULE PO SCH ×2 (09:16→20:40)
[2017-06-12] MEDS: PANTOPRAZOLE SODIUM 40 MG DR TABLET PO SCH (09:16)
[2017-06-12] MEDS: HEPARIN SODIUM,PORCINE 5,000 UNITS/ML VIAL SQ SCH ×3 (09:16→23:53)
[2017-06-12] MEDS: FUROSEMIDE 20 MG TABLET PO SCH ×2 (09:16→20:41)
[2017-06-12] MEDS: TOPIRAMATE 25 MG TABLET PO SCH (09:17)
[2017-06-12] MEDS: MONTELUKAST SODIUM 10 MG TABLET PO SCH (09:17)
[2017-06-12] MEDS ORDERED: BENZONATATE 100 MG CAPSULE PO PRN (10:45)
[2017-06-12 11:48] VITALS: BP 146/88
[2017-06-12] MEDS: SUMAtriptan SUCCINATE 25 MG TABLET PO PRN ×2 (12:57→23:53)
[2017-06-12 15:45] VITALS: BP 138/69
[2017-06-12] MEDS: AZITHROMYCIN 500 MG/NS 250 ML IV SCH (17:13)
[2017-06-12] MEDS: GuaiFENesin SR 600 MG ER TABLET PO SCH ×2 (17:14→20:40)
[2017-06-12] MEDS ORDERED: SODIUM CHLORIDE 0.9% 250 ML IV ONE (17:16)
[2017-06-12 19:28] VITALS: BP 140/86
[2017-06-12] MEDS: BUDESONIDE 0.5 MG/2 ML NEB SOLUTION NEB SCH (22:33)
[2017-06-12] MEDS: ZOLPIDEM TARTRATE 5 MG TABLET PO PRN (23:53)
[2017-06-13] VITALS: BP 136/79
[2017-06-13] MEDS: ALBUTEROL SULFATE 2.5 MG/0.5 ML NEB SOLUTION NEB SCH ×4 (03:00→15:16)
[2017-06-13] MEDS: IPRATROPIUM BROMIDE 0.5 MG/2.5 ML NEB SOLUTION NEB SCH ×4 (03:00→15:16)
[2017-06-13 04:00] VITALS: BP 146/99
[2017-06-13] MEDS: MethylPREDNISolone SOD SUCC 125 MG/2 ML VIAL IVP SCH ×2 (05:57→12:21)
[2017-06-13] MEDS: BUDESONIDE 0.5 MG/2 ML NEB SOLUTION NEB SCH (07:02)
[2017-06-13 07:28] VITALS: BP 138/87
[2017-06-13] MEDS: GuaiFENesin SR 600 MG ER TABLET PO SCH ×2 (08:16→16:00)
[2017-06-13] MEDS: FUROSEMIDE 20 MG TABLET PO SCH (08:16)
[2017-06-13] MEDS: DOCUSATE SODIUM 100 MG CAPSULE PO SCH (08:16)
[2017-06-13] MEDS: HEPARIN SODIUM,PORCINE 5,000 UNITS/ML VIAL SQ SCH ×2 (08:16→16:00)
[2017-06-13] MEDS: MONTELUKAST SODIUM 10 MG TABLET PO SCH (08:16)
[2017-06-13] MEDS: PANTOPRAZOLE SODIUM 40 MG DR TABLET PO SCH (08:17)
[2017-06-13] MEDS: DILTIAZEM HCL 30 MG TABLET PO SCH ×3 (08:17→16:00)
[2017-06-13] MEDS: TOPIRAMATE 25 MG TABLET PO SCH (08:17)
[2017-06-13] MEDS: OxyCODONE HCL/ACETAMINOPHEN 5-325 MG TABLET PO PRN (08:26)
[2017-06-13 09:30] LABS: ANION GAP 12 mmol/L (8-16); CALCIUM, TOTAL 8.7 mg/dL (8.8-10.5); CARBON DIOXIDE 25 mmol/L (22-29); CHLORIDE 107 mmol/L (98-107); CREATININE 1.12 mg/dL (0.60-1.30); GLOMERULAR FILTR. RATE CALC > 60 mL/min (>60); GLUCOSE,RANDOM 153 mg/dL (70-110); SODIUM SERUM 144 mmol/L (136-145); UREA NITROGEN, BLOOD 22 mg/dL (7-18)
[2017-06-13] MEDS ORDERED: POTASSIUM CHLORIDE 20 MEQ ER TABLET PO PRN (10:00)
[2017-06-13] MEDS ORDERED: POTASSIUM CHL 10 MEQ/WATER 50 ML IV PRN (10:00)
[2017-06-13] MEDS: SUMAtriptan SUCCINATE 25 MG TABLET PO PRN (10:03)
[2017-06-13] MEDS ORDERED: ONDANSETRON HCL 4 MG/2 ML VIAL IM PRN (10:15)
[2017-06-13] MEDS ORDERED: ONDANSETRON HCL 4 MG/2 ML VIAL IVP PRN (10:15)
[2017-06-13 11:23] VITALS: BP 155/93
[2017-06-13] MEDS ORDERED: IPRAHFA IH (13:32)
[2017-06-13] MEDS ORDERED: ALBU8HFA IH (13:32)
[2017-06-13] MEDS ORDERED: GUAIF600 PO (13:33)
[2017-06-13] MEDS ORDERED: PRED20 PO ×2 (13:35→13:36)
[2017-06-13] MEDS ORDERED: PRED10 PO (13:36)
[2017-06-13] MEDS ORDERED: PRED5 PO (13:37)
[2017-06-13] MEDS ORDERED: TUSSI5L PO (14:55)
== END 2017-06-13 15:55 | disposition home or self-care (01) | DRG 140 ==
LOC: EMS 13:04 → 5N 18:47 → 6N 21:20
PROVIDERS: ADMIT Hospitalist; ATTEND Hospitalist
DX: J44.1 Chronic obstructive pulmonary disease with (acute) exacerbation (principal); J96.02 Acute respiratory failure with hypercapnia; G43.909 Migraine, unspecified, not intractable, without status migrainosus; I10 Essential (primary) hypertension; E87.6 Hypokalemia; F14.90 Cocaine use, unspecified, uncomplicated; Z91.19 Patient's noncompliance with other medical treatment and regimen; Z90.49 Acquired absence of other specified parts of digestive tract; Z79.891 Long term (current) use of opiate analgesic; Z79.899 Other long term (current) drug therapy; Z82.49 Family history of ischemic heart disease and other diseases of the circulatory system; Z82.5 Family history of asthma and other chronic lower respiratory diseases; Z83.3 Family history of diabetes mellitus
CPT/HCPCS: 82805; 83605; 87040; 93005; 94640; 94644; 96374; 96375; 99291; J0456; J1644; J1940; J2405; J2930; J7030; J7050

== ENCOUNTER 2017-07-05 06:38 | Emergency (ER) | payer OTHER ==
[~2017-07-05] VITALS: Ht 167.6 cm; Wt 57.0 kg
[~2017-07-05 06:38] MED LIST changes: -ALPR0.255 PO; +GUAIF600 PO; -IBUP-2354 PO; +IPRAHFA IH; +PRED10 PO; +PRED20 PO
[2017-07-05] MEDS ORDERED: IPRATROPIUM BROMIDE 0.5 MG/2.5 ML NEB SOLUTION NEB ONE (07:00)
[2017-07-05] MEDS ORDERED: ALBUTEROL SULFATE 5 MG/ML 20 ML NEB SOLN [BULK] NEB ONE (07:00)
[2017-07-05] MEDS ORDERED: PredniSONE 20 MG TABLET PO ONE (07:00)
[2017-07-05] MEDS ORDERED: ACETAMINOPHEN 500 MG TABLET PO ONE (07:00)
[2017-07-05] MEDS ORDERED: 0.9% SODIUM CHLORIDE 5 ML NEB SOLUTION NEB ONE (07:09)
[2017-07-05 09:39] VITALS: BP 151/95
== END 2017-07-05 09:50 | disposition home or self-care (01) ==
LOC: EMS 06:39
DX: J44.1 Chronic obstructive pulmonary disease with (acute) exacerbation (principal); G43.909 Migraine, unspecified, not intractable, without status migrainosus; I10 Essential (primary) hypertension; Z79.899 Other long term (current) drug therapy; Z90.49 Acquired absence of other specified parts of digestive tract
CPT/HCPCS: 94644; 99285; J7512; J7611

== ENCOUNTER 2017-08-22 11:05 | Emergency (ER) | payer OTHER ==
[~2017-08-22] VITALS: Ht 167.6 cm; Wt 56.8 kg
[~2017-08-22 11:05] MED LIST changes: -GUAIF600 PO; -PRED10 PO; -PRED20 PO; -PRED5 PO; -TUSSI5L PO
[2017-08-22] MEDS ORDERED: IPRATROPIUM BROMIDE 0.5 MG/2.5 ML NEB SOLUTION NEB ONE (11:30)
[2017-08-22] MEDS ORDERED: ALBUTEROL SULFATE 5 MG/ML 20 ML NEB SOLN [BULK] NEB ONE (11:30)
[2017-08-22] MEDS ORDERED: SODIUM CHLORIDE 0.9% 1,000 ML IV ONE (11:30)
[2017-08-22] MEDS ORDERED: MethylPREDNISolone SOD SUCC 125 MG/2 ML VIAL IVP ONE (11:30)
[2017-08-22 12:41] LABS: ANION GAP 8 mmol/L (8-16); CALCIUM, TOTAL 8.5 mg/dL (8.8-10.5); CARBON DIOXIDE 26 mmol/L (22-29); CHLORIDE 109 mmol/L (98-107); CREATININE 0.97 mg/dL (0.60-1.30); GLOMERULAR FILTR. RATE CALC > 60 mL/min (>60); GLUCOSE,RANDOM 86 mg/dL (70-110); POTASSIUM 3.5 mmol/L (3.5-5.1); SODIUM SERUM 143 mmol/L (136-145); UREA NITROGEN, BLOOD 11 mg/dL (7-18)
[2017-08-22 12:49] LABS: ALANINE AMINOTRANSFERASE 17 U/L (12-78); ALBUMIN 3.1 g/dL (3.4-5.0); ALKALINE PHOSPHATASE 105 U/L (46-116); ASPARTATE AMINOTRANSFERASE 28 U/L (15-37); BILIRUBIN,TOTAL 0.5 mg/dL (0.1-1.0); TOTAL PROTEIN, SERUM 6.4 g/dL (6.4-8.2)
[2017-08-22 13:33] LABS: BASOPHILS % (AUTO) 0.8 % (0.0-2.0); EOSINOPHILS % (AUTO) 25.4 % (1.0-6.0); HEMATOCRIT 38.6 % (36-46); LYMPHOCYTES # (AUTO) 0.7 K/uL (1.0-4.8); LYMPHOCYTES % (AUTO) 7.5 % (22.0-44.0); MEAN CORPUSCULAR HEMOGLOBIN 29.8 pg (26.0-34.0); MEAN CORPUSCULAR HGB CONC 33.7 G/dL (31.0-37.0); MEAN CORPUSCULAR VOLUME 89 fL (80-100); MONOCYTES # (AUTO) 0.2 K/uL (0.1-1.0); NEUTROPHILS # (AUTO) 5.7 K/uL (1.8-7.7); NEUTROPHILS % (AUTO) 64.3 % (40.0-70.0); PLATELET COUNT (AUTO) 272 K/uL (150-450); RED BLOOD CELL COUNT(AUTO) 4.35 MIL/uL (4.00-5.20); RED CELL DISTRIBUTION WIDTH 15.7 % (11.5-14.5)
[2017-08-22 14:05] VITALS: BP 129/86
== END 2017-08-22 14:26 | disposition home or self-care (01) ==
LOC: EMS 11:06
DX: J44.1 Chronic obstructive pulmonary disease with (acute) exacerbation (principal); L30.9 Dermatitis, unspecified; I10 Essential (primary) hypertension; G43.909 Migraine, unspecified, not intractable, without status migrainosus; F14.10 Cocaine abuse, uncomplicated; Z79.899 Other long term (current) drug therapy
CPT/HCPCS: 36415; 71045; 80053; 85025; 93005; 94644; 96374; 99285; J2930; J7030; J7611

== ENCOUNTER 2017-10-23 18:06 | Inpatient (IN) | payer OTHER ==
[~2017-10-23] VITALS: Ht 170.2 cm; Wt 59.8 kg
[2017-10-23] MEDS ORDERED: ALBUTEROL SULFATE 2.5 MG/0.5 ML NEB SOLUTION NEB ONE ×3 (18:28→18:45)
[2017-10-23] MEDS ORDERED: LORazepam 2 MG/ML VIAL IVP ONE (18:30)
[2017-10-23] MEDS ORDERED: MethylPREDNISolone SOD SUCC 125 MG/2 ML VIAL IVP ONE (18:30)
[2017-10-23] MEDS ORDERED: IPRATROPIUM BROMIDE 0.5 MG/2.5 ML NEB SOLUTION NEB ONE ×2 (18:30→18:45)
[2017-10-23 18:57] LABS: BASOPHILS % (AUTO) 0.8 % (0.0-2.0); HEMATOCRIT 42.6 % (36-46); HEMOGLOBIN 14.2 g/dL (12.0-16.0); LYMPHOCYTES # (AUTO) 1.6 K/uL (1.0-4.8); MEAN CORPUSCULAR HGB CONC 33.3 G/dL (31.0-37.0); MEAN CORPUSCULAR VOLUME 87 fL (80-100); MONOCYTES # (AUTO) 0.5 K/uL (0.1-1.0); MONOCYTES % (AUTO) 6.4 % (2.0-9.0); NEUTROPHILS # (AUTO) 3.4 K/uL (1.8-7.7); NEUTROPHILS % (AUTO) 42.9 % (40.0-70.0); PLATELET COUNT (AUTO) 292 K/uL (150-450); RED CELL DISTRIBUTION WIDTH 15.1 % (11.5-14.5)
[2017-10-23 18:59] LABS: EOSINOPHILS % (AUTO) 29.9 % (1.0-6.0)
[2017-10-23 19:07] LABS: ANION GAP 11 mmol/L (8-16); CARBON DIOXIDE 24 mmol/L (22-29); CHLORIDE 108 mmol/L (98-107); CREATININE 1.05 mg/dL (0.60-1.30); GLOMERULAR FILTR. RATE CALC > 60 mL/min (>60); POTASSIUM 3.3 mmol/L (3.5-5.1); SODIUM SERUM 143 mmol/L (136-145); UREA NITROGEN, BLOOD 9 mg/dL (7-18)
[2017-10-23 19:13] LABS: ALANINE AMINOTRANSFERASE 19 U/L (12-78); ALBUMIN 3.8 g/dL (3.4-5.0); ALKALINE PHOSPHATASE 100 U/L (46-116); ASPARTATE AMINOTRANSFERASE 22 U/L (15-37); BILIRUBIN,TOTAL 0.5 mg/dL (0.1-1.0); TOTAL PROTEIN, SERUM 7.1 g/dL (6.4-8.2)
[2017-10-23 19:21] LABS: PLATELET MORPHOLOGY COMMENT GIANT PLTS PRESENT
[2017-10-23 19:23] LABS: GLUCOSE,RANDOM 104 mg/dL (70-110)
[2017-10-23 19:29] LABS: B-TYPE NATRIURETIC PEPTIDE 14 pg/mL (0-100)
[2017-10-23] MEDS ORDERED: ACETAMINOPHEN 325 MG TABLET PO PRN (20:30)
[2017-10-23] MEDS ORDERED: MAGNESIUM OXIDE 400 MG TABLET PO PRN (20:30)
[2017-10-23] MEDS ORDERED: MAGNESIUM SULFATE 2 GM/WATER 50 ML IV PRN (20:30)
[2017-10-23] MEDS ORDERED: ZOLPIDEM TARTRATE 5 MG TABLET PO PRN (20:30)
[2017-10-23] MEDS ORDERED: MAGNESIUM HYDROXIDE SUSPENSION 30 ML UDCUP PO PRN (20:30)
[2017-10-23] MEDS ORDERED: POTASSIUM CHLORIDE 20 MEQ ER TABLET PO PRN (20:30)
[2017-10-23] MEDS ORDERED: ALBUTEROL SULFATE 2.5 MG/0.5 ML NEB SOLUTION NEB PRN (20:30)
[2017-10-23] MEDS ORDERED: MAGNESIUM SULFATE 4 GM/WATER 100 ML IV PRN (20:30)
[2017-10-23] MEDS ORDERED: POTASSIUM CHL 10 MEQ/WATER 50 ML IV PRN (20:30)
[2017-10-23] MEDS ORDERED: IPRATROPIUM BROMIDE 0.5 MG/2.5 ML NEB SOLUTION NEB PRN (20:30)
[2017-10-23] MEDS ORDERED: OxyCODONE HCL/ACETAMINOPHEN 5-325 MG TABLET PO PRN (20:30)
[2017-10-23] MEDS ORDERED: ONDANSETRON HCL 4 MG/2 ML VIAL IVP PRN (20:30)
[2017-10-23] MEDS ORDERED: MORPHINE SULFATE 2 MG/ML SYRINGE IVP PRN (20:30)
[2017-10-23] MEDS ORDERED: BISACODYL 10 MG RECTAL RECTAL SUPPOSITORY PR PRN (20:30)
[2017-10-23 20:45] LABS: ABG A-A DIFF O2 88.9 mmHg (10-20.0); ABG BASE EXCESS -2.4 mmol/L (-2.0-3.0); ABG CARBOXYHEMOGLOBIN 4.4 % (0.0-1.5); ABG HCO3 22.6 mmol/L (22.0-26.0); ABG METHEMOGLOBIN 0.5 % (0.0-1.5); ABG OXYGEN CONTENT 17.9 mL/dL (15.0-23.0); ABG OXYGEN SATURATION 96.6 % (95.0-98.0); ABG OXYHEMOGLOBIN 91.9 % (94.0-100.0); ABG PCO2 41 mmHg (35-45); ABG PH 7.365 (7.35-7.450); ABG TOTAL HEMOGLOBIN 13.8 G/dL (12.0-18.0); PO2, ARTERIAL BG 91.2 mmHg (84.0-92.0); SOURCE, BLOOD GAS ARTERIAL; TEMPERATURE, FAHRENHEIT, BG 98.6 FAHREN (96.0-98.6)
[2017-10-23 20:47] LABS: O2 DEVICE,BLOOD GAS CANNULA (ROOM AIR); SITE, BLOOD GAS RT RADIAL
[2017-10-23] MEDS: FUROSEMIDE 20 MG TABLET PO SCH ×2 (21:00→22:13)
[2017-10-23] MEDS ORDERED: CloNIDine HCL 0.1 MG TABLET PO PRN (21:30)
[2017-10-23 21:44] VITALS: BP 138/99
[2017-10-23] MEDS: DILTIAZEM HCL 30 MG TABLET PO SCH (22:13)
[2017-10-23] MEDS: HEPARIN SODIUM,PORCINE 5,000 UNITS/ML VIAL SQ SCH (22:16)
[2017-10-23 23:56] VITALS: BP 129/76
[2017-10-24] MEDS: IPRATROPIUM BROMIDE 0.5 MG/2.5 ML NEB SOLUTION NEB PRN (05:04)
[2017-10-24] MEDS: ALBUTEROL SULFATE 2.5 MG/0.5 ML NEB SOLUTION NEB PRN (05:04)
[2017-10-24 05:17] VITALS: BP 148/96
[2017-10-24] MEDS: SUMAtriptan SUCCINATE 25 MG TABLET PO PRN (06:09)
[2017-10-24] MEDS ORDERED: PROMETHAZINE HCL/CODEINE 6.25-10MG/5ML SYRUP UDCUP PO PRN (06:15)
[2017-10-24] MEDS ORDERED: BENZOCAINE/MENTHOL LOZENGE MM PRN (06:15)
[2017-10-24 06:51] LABS: BASOPHILS % (AUTO) 0.3 % (0.0-2.0); EOSINOPHILS % (AUTO) 0.7 % (1.0-6.0); HEMATOCRIT 40.1 % (36-46); HEMOGLOBIN 12.9 g/dL (12.0-16.0); LYMPHOCYTES # (AUTO) 0.7 K/uL (1.0-4.8); LYMPHOCYTES % (AUTO) 15.4 % (22.0-44.0); MEAN CORPUSCULAR HEMOGLOBIN 28.6 pg (26.0-34.0); MEAN CORPUSCULAR HGB CONC 32.2 G/dL (31.0-37.0); MEAN CORPUSCULAR VOLUME 89 fL (80-100); MONOCYTES # (AUTO) 0.2 K/uL (0.1-1.0); MONOCYTES % (AUTO) 4.2 % (2.0-9.0); NEUTROPHILS # (AUTO) 3.4 K/uL (1.8-7.7); NEUTROPHILS % (AUTO) 79.4 % (40.0-70.0); PLATELET COUNT (AUTO) 284 K/uL (150-450); RED BLOOD CELL COUNT(AUTO) 4.51 MIL/uL (4.00-5.20)
[2017-10-24 07:12] LABS: ALANINE AMINOTRANSFERASE 17 U/L (12-78); ALBUMIN 3.1 g/dL (3.4-5.0); ALKALINE PHOSPHATASE 84 U/L (46-116); ANION GAP 11 mmol/L (8-16); ASPARTATE AMINOTRANSFERASE 13 U/L (15-37); BILIRUBIN,TOTAL 0.3 mg/dL (0.1-1.0); CARBON DIOXIDE 22 mmol/L (22-29); CHLORIDE 110 mmol/L (98-107); CREATININE 1.01 mg/dL (0.60-1.30); GLOMERULAR FILTR. RATE CALC > 60 mL/min (>60); GLUCOSE,RANDOM 145 mg/dL (70-110); PHOSPHORUS 3.7 mg/dL (2.5-4.9); POTASSIUM 3.7 mmol/L (3.5-5.1); SODIUM SERUM 143 mmol/L (136-145); TOTAL PROTEIN, SERUM 6.2 g/dL (6.4-8.2); UREA NITROGEN, BLOOD 12 mg/dL (7-18)
[2017-10-24] MEDS ORDERED: MethylPREDNISolone SOD SUCC 125 MG/2 ML VIAL IVP SCH (08:00)
[2017-10-24 08:05] VITALS: BP 121/87
[2017-10-24] MEDS: TOPIRAMATE 25 MG TABLET PO SCH (08:14)
[2017-10-24] MEDS: HEPARIN SODIUM,PORCINE 5,000 UNITS/ML VIAL SQ SCH ×2 (08:14→20:23)
[2017-10-24] MEDS: FUROSEMIDE 20 MG TABLET PO SCH (08:15)
[2017-10-24] MEDS: PANTOPRAZOLE SODIUM 40 MG DR TABLET PO SCH (08:15)
[2017-10-24] MEDS: DILTIAZEM HCL 30 MG TABLET PO SCH ×4 (08:15→23:50)
[2017-10-24] MEDS: MONTELUKAST SODIUM 10 MG TABLET PO SCH (08:15)
[2017-10-24 12:28] VITALS: BP 144/99
[2017-10-24] MEDS ORDERED: MethylPREDNISolone SOD SUCC 40 MG/ML VIAL IVP SCH (16:00)
[2017-10-24] MEDS: MethylPREDNISolone SOD SUCC 40 MG/ML VIAL IVP SCH ×2 (17:48→23:49)
[2017-10-24] MEDS: AZITHROMYCIN 500 MG/NS 250 ML IV SCH (17:48)
[2017-10-24] MEDS: BENZONATATE 100 MG CAPSULE PO SCH ×2 (17:49→23:50)
[2017-10-24] MEDS ORDERED: ALPRAZolam 0.5 MG TABLET PO ONE (18:45)
[2017-10-24 19:31] VITALS: BP 130/80
[2017-10-24] MEDS: HYDROCODONE/CHLORPHEN POLIS 10-8 MG/5 ML ORAL.SYG PO SCH (20:23)
[2017-10-24 23:42] VITALS: BP_SYST 106; BP_SYST 118; BP_DIAS 50; BP_DIAS 56
[2017-10-25 04:00] VITALS: BP 109/53
[2017-10-25 05:21] LABS: AMPHET/METH SCREEN,URINE NEGATIVE (NEGATIVE); BARBITURATE SCREEN, URINE NEGATIVE (NEGATIVE); BENZODIAZEPINES SCREEN,URINE NEGATIVE (NEGATIVE); CANNABINOID SCREEN,URINE NEGATIVE (NEGATIVE); COCAINE SCREEN,URINE POSITIVE (NEGATIVE); METHADONE SCREEN, URINE NEGATIVE (NEGATIVE); OPIATE SCREEN,URINE POSITIVE (NEGATIVE)
[2017-10-25 05:24] LABS: PHENCYCLIDINE SCREEN,URINE NEGATIVE (NEGATIVE)
[2017-10-25] MEDS: IPRATROPIUM BROMIDE 0.5 MG/2.5 ML NEB SOLUTION NEB PRN ×3 (06:05→20:55)
[2017-10-25] MEDS: ALBUTEROL SULFATE 2.5 MG/0.5 ML NEB SOLUTION NEB PRN ×3 (06:05→20:55)
[2017-10-25] MEDS: MethylPREDNISolone SOD SUCC 40 MG/ML VIAL IVP SCH ×4 (06:46→23:17)
[2017-10-25] MEDS: SUMAtriptan SUCCINATE 25 MG TABLET PO PRN (06:56)
[2017-10-25 08:31] VITALS: BP 142/93
[2017-10-25] MEDS: HYDROCODONE/CHLORPHEN POLIS 10-8 MG/5 ML ORAL.SYG PO SCH ×2 (09:07→20:27)
[2017-10-25] MEDS: DILTIAZEM HCL 30 MG TABLET PO SCH ×4 (09:08→20:27)
[2017-10-25] MEDS: HEPARIN SODIUM,PORCINE 5,000 UNITS/ML VIAL SQ SCH ×2 (09:08→20:28)
[2017-10-25] MEDS: PANTOPRAZOLE SODIUM 40 MG DR TABLET PO SCH (09:08)
[2017-10-25] MEDS: TOPIRAMATE 25 MG TABLET PO SCH (09:08)
[2017-10-25] MEDS: MONTELUKAST SODIUM 10 MG TABLET PO SCH (09:08)
[2017-10-25] MEDS: FUROSEMIDE 20 MG TABLET PO SCH (09:08)
[2017-10-25] MEDS: BENZONATATE 100 MG CAPSULE PO SCH ×3 (09:08→23:17)
[2017-10-25 11:37] VITALS: BP 159/87
[2017-10-25] MEDS ORDERED: BENZONATATE 100 MG CAPSULE PO PRN (13:00)
[2017-10-25] MEDS: AZITHROMYCIN 500 MG/NS 250 ML IV SCH (14:36)
[2017-10-25 15:36] VITALS: BP 136/78
[2017-10-25 19:36] VITALS: BP 124/76
[2017-10-25] MEDS: GuaiFENesin SR 600 MG ER TABLET PO SCH (20:27)
[2017-10-25] MEDS: BUDESONIDE 0.5 MG/2 ML NEB SOLUTION NEB SCH (20:55)
[2017-10-26 00:08] VITALS: BP 100/67
[2017-10-26] MEDS: IPRATROPIUM BROMIDE 0.5 MG/2.5 ML NEB SOLUTION NEB PRN ×2 (04:32→13:55)
[2017-10-26] MEDS: ALBUTEROL SULFATE 2.5 MG/0.5 ML NEB SOLUTION NEB PRN ×2 (04:32→13:55)
[2017-10-26 04:36] VITALS: BP 123/60
[2017-10-26] MEDS: MethylPREDNISolone SOD SUCC 40 MG/ML VIAL IVP SCH ×2 (05:54→12:24)
[2017-10-26] MEDS: SUMAtriptan SUCCINATE 25 MG TABLET PO PRN (06:01)
[2017-10-26] MEDS: DILTIAZEM HCL 30 MG TABLET PO SCH (07:58)
[2017-10-26] MEDS: PANTOPRAZOLE SODIUM 40 MG DR TABLET PO SCH (07:58)
[2017-10-26] MEDS: MONTELUKAST SODIUM 10 MG TABLET PO SCH (07:59)
[2017-10-26] MEDS: BENZONATATE 100 MG CAPSULE PO SCH (07:59)
[2017-10-26] MEDS: TOPIRAMATE 25 MG TABLET PO SCH (07:59)
[2017-10-26] MEDS: GuaiFENesin SR 600 MG ER TABLET PO SCH (08:00)
[2017-10-26] MEDS: FUROSEMIDE 20 MG TABLET PO SCH (08:00)
[2017-10-26] MEDS: HYDROCODONE/CHLORPHEN POLIS 10-8 MG/5 ML ORAL.SYG PO SCH (08:06)
[2017-10-26] MEDS: HEPARIN SODIUM,PORCINE 5,000 UNITS/ML VIAL SQ SCH (08:06)
[2017-10-26] MEDS: ALBUTEROL SULFATE HFA 90 MCG/PUFF 8 GM INHALER IH PRN ×2 (08:11)
[2017-10-26 08:16] VITALS: BP 149/98
[2017-10-26] MEDS: BUDESONIDE 0.5 MG/2 ML NEB SOLUTION NEB SCH (08:50)
[2017-10-26 11:49] VITALS: BP 117/72
[2017-10-26] MEDS ORDERED: BENZ-51 PO (14:53)
[2017-10-26] MEDS ORDERED: GUAI-487 PO (14:54)
[2017-10-26] MEDS ORDERED: TUSSI5L PO (14:55)
[2017-10-26] MEDS ORDERED: PRED15SO PO (14:56)
[2017-10-26] MEDS ORDERED: PRED-284 PO (14:58)
== END 2017-10-26 18:00 | disposition home or self-care (01) | DRG 140 ==
LOC: EMS 18:08 → 4E 20:35 → 6N 10-24 16:25
PROVIDERS: ADMIT Internal Medicine; ATTEND Internal Medicine
DX: J44.1 Chronic obstructive pulmonary disease with (acute) exacerbation (principal); D50.9 Iron deficiency anemia, unspecified; F14.10 Cocaine abuse, uncomplicated; E87.6 Hypokalemia; F17.200 Nicotine dependence, unspecified, uncomplicated; I10 Essential (primary) hypertension; F19.10 Other psychoactive substance abuse, uncomplicated; R09.02 Hypoxemia; J44.0 Chronic obstructive pulmonary disease with (acute) lower respiratory infection; F41.9 Anxiety disorder, unspecified; G43.909 Migraine, unspecified, not intractable, without status migrainosus; I16.0 Hypertensive urgency; K21.9 Gastro-esophageal reflux disease without esophagitis; G47.00 Insomnia, unspecified; J20.9 Acute bronchitis, unspecified; Z91.19 Patient's noncompliance with other medical treatment and regimen; Z90.49 Acquired absence of other specified parts of digestive tract; Z79.899 Other long term (current) drug therapy
CPT/HCPCS: 80307; 82805; 83735; 84100; 93005; 94640; 96374; 96375; 99291; J0456; J1644; J2060; J2920; J2930; J3535

== ENCOUNTER 2017-12-14 08:39 | Inpatient (IN) | payer OTHER ==
[~2017-12-14] VITALS: Ht 167.6 cm; Wt 64.0 kg
[~2017-12-14 08:39] MED LIST changes: +BENZ-51 PO; +GUAI-487 PO; +PRED-284 PO; +TUSSI5L PO
[2017-12-14] MEDS ORDERED: IPRATROPIUM BROMIDE 0.5 MG/2.5 ML NEB SOLUTION NEB ONE (09:00)
[2017-12-14] MEDS ORDERED: ALBUTEROL SULFATE 5 MG/ML 20 ML NEB SOLN [BULK] NEB ONE (09:00)
[2017-12-14] MEDS ORDERED: MethylPREDNISolone SOD SUCC 125 MG/2 ML VIAL IVP ONE (09:00)
[2017-12-14] MEDS ORDERED: 0.9% SODIUM CHLORIDE 15 ML NEB SOLUTION NEB ONE (09:05)
[2017-12-14 09:21] LABS: BASOPHILS % (AUTO) 0.7 % (0.0-2.0); HEMATOCRIT 43.1 % (36-46); HEMOGLOBIN 14.3 g/dL (12.0-16.0); LYMPHOCYTES # (AUTO) 1.1 K/uL (1.0-4.8); LYMPHOCYTES % (AUTO) 15.3 % (22.0-44.0); MEAN CORPUSCULAR HEMOGLOBIN 29.3 pg (26.0-34.0); MEAN CORPUSCULAR HGB CONC 33.2 G/dL (31.0-37.0); MEAN CORPUSCULAR VOLUME 88 fL (80-100); MONOCYTES # (AUTO) 0.5 K/uL (0.1-1.0); MONOCYTES % (AUTO) 6.9 % (2.0-9.0); NEUTROPHILS # (AUTO) 2.9 K/uL (1.8-7.7); NEUTROPHILS % (AUTO) 38.8 % (40.0-70.0); PLATELET COUNT (AUTO) 285 K/uL (150-450); RED BLOOD CELL COUNT(AUTO) 4.88 MIL/uL (4.00-5.20); RED CELL DISTRIBUTION WIDTH 16.3 % (11.5-14.5)
[2017-12-14 09:25] LABS: ANION GAP 9 mmol/L (8-16); CALCIUM, TOTAL 8.9 mg/dL (8.8-10.5); CARBON DIOXIDE 25 mmol/L (22-29); CHLORIDE 110 mmol/L (98-107); CREATININE 1.09 mg/dL (0.60-1.30); GLOMERULAR FILTR. RATE CALC > 60 mL/min (>60); GLUCOSE,RANDOM 80 mg/dL (70-110); POTASSIUM 3.4 mmol/L (3.5-5.1); SODIUM SERUM 144 mmol/L (136-145); UREA NITROGEN, BLOOD 9 mg/dL (7-18)
[2017-12-14 09:30] LABS: EOSINOPHILS % (AUTO) 38.3 % (1.0-6.0)
[2017-12-14 09:31] LABS: ALANINE AMINOTRANSFERASE 43 U/L (12-78); ALBUMIN 3.7 g/dL (3.4-5.0); ALKALINE PHOSPHATASE 108 U/L (46-116); ASPARTATE AMINOTRANSFERASE 26 U/L (15-37); BILIRUBIN,TOTAL 0.3 mg/dL (0.1-1.0)
[2017-12-14 09:44] LABS: B-TYPE NATRIURETIC PEPTIDE 59 pg/mL (0-100)
[2017-12-14] MEDS ORDERED: SODIUM CHLORIDE 0.9% 1,000 ML IV ONE (10:15)
[2017-12-14] MEDS ORDERED: MAGNESIUM HYDROXIDE SUSPENSION 30 ML UDCUP PO PRN (10:15)
[2017-12-14] MEDS ORDERED: POTASSIUM CHLORIDE 10 MEQ ER TABLET PO ONE (10:15)
[2017-12-14] MEDS ORDERED: ACETAMINOPHEN 325 MG TABLET PO PRN (10:15)
[2017-12-14] MEDS: IPRATROPIUM BROMIDE 0.5 MG/2.5 ML NEB SOLUTION NEB SCH ×4 (11:00→22:53)
[2017-12-14] MEDS: ALBUTEROL SULFATE 2.5 MG/0.5 ML NEB SOLUTION NEB SCH ×4 (11:00→22:53)
[2017-12-14] MEDS: OxyCODONE HCL/ACETAMINOPHEN 5-325 MG TABLET PO PRN (11:35)
[2017-12-14] MEDS: CloNIDine HCL 0.1 MG TABLET PO PRN (11:35)
[2017-12-14 12:02] VITALS: BP 161/117
[2017-12-14 13:02] VITALS: BP 136/78
[2017-12-14] MEDS: AZITHROMYCIN 500 MG/NS 250 ML IV SCH (14:16)
[2017-12-14] MEDS: GuaiFENesin/CODEINE [SUGAR FREE] 200-20MG/10 ML SYRUP UDCUP PO PRN ×2 (14:33→23:14)
[2017-12-14 15:30] VITALS: BP 134/86
[2017-12-14] MEDS: MethylPREDNISolone SOD SUCC 125 MG/2 ML VIAL IVP SCH ×2 (16:19→23:14)
[2017-12-14] MEDS: HEPARIN SODIUM,PORCINE 5,000 UNITS/ML VIAL SQ SCH ×2 (16:20→23:14)
[2017-12-14] MEDS: LORazepam 2 MG/ML VIAL IVP PRN (19:00)
[2017-12-14 19:54] VITALS: BP 143/85
[2017-12-14] MEDS: DOCUSATE SODIUM 100 MG CAPSULE PO SCH (23:15)
[2017-12-14 23:56] VITALS: BP 137/82
[2017-12-15] MEDS: OxyCODONE HCL/ACETAMINOPHEN 5-325 MG TABLET PO PRN ×2 (02:29→16:29)
[2017-12-15] MEDS: IPRATROPIUM BROMIDE 0.5 MG/2.5 ML NEB SOLUTION NEB SCH ×5 (02:39→19:01)
[2017-12-15] MEDS: ALBUTEROL SULFATE 2.5 MG/0.5 ML NEB SOLUTION NEB SCH ×5 (02:39→19:01)
[2017-12-15] MEDS: GuaiFENesin/CODEINE [SUGAR FREE] 200-20MG/10 ML SYRUP UDCUP PO PRN (05:46)
[2017-12-15] MEDS ORDERED: IPRATROPIUM BROMIDE 0.5 MG/2.5 ML NEB SOLUTION NEB PRN (06:00)
[2017-12-15 07:50] VITALS: BP 142/83
[2017-12-15] MEDS: DOCUSATE SODIUM 100 MG CAPSULE PO SCH ×2 (09:21→20:25)
[2017-12-15] MEDS: MethylPREDNISolone SOD SUCC 125 MG/2 ML VIAL IVP SCH (09:21)
[2017-12-15] MEDS: HEPARIN SODIUM,PORCINE 5,000 UNITS/ML VIAL SQ SCH ×3 (09:21→23:42)
[2017-12-15] MEDS: PANTOPRAZOLE SODIUM 40 MG DR TABLET PO SCH (09:21)
[2017-12-15] MEDS: LORazepam 2 MG/ML VIAL IVP PRN ×2 (10:07→14:50)
[2017-12-15] MEDS: PredniSONE 20 MG TABLET PO SCH (10:11)
[2017-12-15 11:42] VITALS: BP 151/104
[2017-12-15] MEDS: AZITHROMYCIN 500 MG/NS 250 ML IV SCH (14:50)
[2017-12-15 15:39] VITALS: BP 153/93
[2017-12-15 19:59] VITALS: BP 145/74
[2017-12-16 00:09] VITALS: BP 143/85
[2017-12-16] MEDS: ALBUTEROL SULFATE 2.5 MG/0.5 ML NEB SOLUTION NEB SCH ×7 (00:11→23:43)
[2017-12-16] MEDS: IPRATROPIUM BROMIDE 0.5 MG/2.5 ML NEB SOLUTION NEB SCH ×7 (00:11→23:43)
[2017-12-16] MEDS: GuaiFENesin/CODEINE [SUGAR FREE] 200-20MG/10 ML SYRUP UDCUP PO PRN ×4 (00:39→23:34)
[2017-12-16 04:00] VITALS: BP 139/85
[2017-12-16 08:13] VITALS: BP 132/97
[2017-12-16] MEDS: PredniSONE 20 MG TABLET PO SCH (09:04)
[2017-12-16] MEDS: HEPARIN SODIUM,PORCINE 5,000 UNITS/ML VIAL SQ SCH ×3 (09:04→23:33)
[2017-12-16] MEDS: PANTOPRAZOLE SODIUM 40 MG DR TABLET PO SCH (09:04)
[2017-12-16] MEDS: DOCUSATE SODIUM 100 MG CAPSULE PO SCH ×2 (09:04→19:51)
[2017-12-16 09:22] LABS: CREATININE 1.18 mg/dL (0.60-1.30); POTASSIUM 3.4 mmol/L (3.5-5.1)
[2017-12-16] MEDS: LORazepam 2 MG/ML VIAL IVP PRN ×2 (09:40→19:51)
[2017-12-16 11:27] VITALS: BP 151/99
[2017-12-16] MEDS: AZITHROMYCIN 500 MG/NS 250 ML IV SCH (15:06)
[2017-12-16 15:36] VITALS: BP 145/96
[2017-12-16] MEDS ORDERED: POTASSIUM CHL 10 MEQ/WATER 50 ML IV PRN (16:00)
[2017-12-16] MEDS ORDERED: POTASSIUM CHLORIDE 20 MEQ ER TABLET PO PRN (16:00)
[2017-12-16 20:16] VITALS: BP 153/98
[2017-12-17 00:10] VITALS: BP 158/110
[2017-12-17] MEDS: CloNIDine HCL 0.1 MG TABLET PO PRN ×2 (00:26→08:12)
[2017-12-17 00:27] VITALS: BP 162/98
[2017-12-17] MEDS: LORazepam 2 MG/ML VIAL IVP PRN (00:32)
[2017-12-17] MEDS: ALBUTEROL SULFATE 2.5 MG/0.5 ML NEB SOLUTION NEB SCH ×3 (03:39→10:35)
[2017-12-17] MEDS: IPRATROPIUM BROMIDE 0.5 MG/2.5 ML NEB SOLUTION NEB SCH ×3 (03:39→10:35)
[2017-12-17] MEDS: OxyCODONE HCL/ACETAMINOPHEN 5-325 MG TABLET PO PRN (05:16)
[2017-12-17 06:45] VITALS: BP 151/92
[2017-12-17] MEDS: HEPARIN SODIUM,PORCINE 5,000 UNITS/ML VIAL SQ SCH (08:13)
[2017-12-17] MEDS: DOCUSATE SODIUM 100 MG CAPSULE PO SCH (08:13)
[2017-12-17] MEDS: PANTOPRAZOLE SODIUM 40 MG DR TABLET PO SCH (08:13)
[2017-12-17] MEDS: PredniSONE 20 MG TABLET PO SCH (08:13)
[2017-12-17 08:22] VITALS: BP 151/95
[2017-12-17 08:23] VITALS: BP 151/95
[2017-12-17 11:14] VITALS: BP 155/94
[2017-12-17] MEDS ORDERED: PRED20 PO (11:56)
[2017-12-17] MEDS ORDERED: GUAIF10 PO (11:59)
[2017-12-17] MEDS: AZITHROMYCIN 500 MG/NS 250 ML IV SCH (13:25)
== END 2017-12-17 14:20 | disposition home or self-care (01) | DRG 140 ==
LOC: EMS 08:41 → 6N 10:32
PROVIDERS: ADMIT Internal Medicine; ATTEND Internal Medicine
DX: J44.0 Chronic obstructive pulmonary disease with (acute) lower respiratory infection (principal); J96.01 Acute respiratory failure with hypoxia; J44.1 Chronic obstructive pulmonary disease with (acute) exacerbation; F14.10 Cocaine abuse, uncomplicated; J20.9 Acute bronchitis, unspecified; I10 Essential (primary) hypertension; G43.909 Migraine, unspecified, not intractable, without status migrainosus; F19.10 Other psychoactive substance abuse, uncomplicated; Z82.49 Family history of ischemic heart disease and other diseases of the circulatory system; Z82.5 Family history of asthma and other chronic lower respiratory diseases; Z83.3 Family history of diabetes mellitus; Z91.19 Patient's noncompliance with other medical treatment and regimen; Z79.899 Other long term (current) drug therapy; Z90.49 Acquired absence of other specified parts of digestive tract
CPT/HCPCS: 84132; 93005; 94640; 94644; 96361; 96374; 99285; J0456; J1644; J2060; J2930; J7030

== ENCOUNTER 2017-12-25 06:59 | Emergency (ER) | payer OTHER ==
[~2017-12-25] VITALS: Ht 157.5 cm; Wt 63.6 kg
[~2017-12-25 06:59] MED LIST changes: -FURO20 PO; -GUAI-487 PO; +GUAIF10 PO; -PRED-284 PO; +PRED20 PO; -TOPI25 PO; -TUSSI5L PO; -ZOLP5 PO
[2017-12-25] MEDS ORDERED: 0.9% SODIUM CHLORIDE 5 ML NEB SOLUTION NEB ONE (07:08)
[2017-12-25] MEDS ORDERED: IPRATROPIUM BROMIDE 0.5 MG/2.5 ML NEB SOLUTION NEB ONE (07:15)
[2017-12-25] MEDS ORDERED: LORazepam 2 MG/ML VIAL IVP ONE (07:15)
[2017-12-25] MEDS ORDERED: ALBUTEROL SULFATE 2.5 MG/0.5 ML NEB SOLUTION NEB ONE (07:15)
[2017-12-25 07:23] LABS: BASOPHILS % (AUTO) 1.1 % (0.0-2.0); EOSINOPHILS % (AUTO) 11.3 % (1.0-6.0); HEMATOCRIT 42.2 % (36-46); HEMOGLOBIN 13.7 g/dL (12.0-16.0); LYMPHOCYTES # (AUTO) 3.5 K/uL (1.0-4.8); LYMPHOCYTES % (AUTO) 40.8 % (22.0-44.0); MEAN CORPUSCULAR HEMOGLOBIN 29.6 pg (26.0-34.0); MEAN CORPUSCULAR HGB CONC 32.4 G/dL (31.0-37.0); MEAN CORPUSCULAR VOLUME 92 fL (80-100); MONOCYTES # (AUTO) 0.7 K/uL (0.1-1.0); MONOCYTES % (AUTO) 8.4 % (2.0-9.0); NEUTROPHILS # (AUTO) 3.3 K/uL (1.8-7.7); NEUTROPHILS % (AUTO) 38.4 % (40.0-70.0); PLATELET COUNT (AUTO) 275 K/uL (150-450); RED BLOOD CELL COUNT(AUTO) 4.61 MIL/uL (4.00-5.20); RED CELL DISTRIBUTION WIDTH 16.5 % (11.5-14.5)
[2017-12-25 07:32] LABS: CALCIUM, TOTAL 8.3 mg/dL (8.8-10.5); CREATININE 1.9 mg/dL (0.60-1.30); POTASSIUM 3.7 mmol/L (3.5-5.1)
[2017-12-25 07:56] LABS: ALBUMIN 3.5 g/dL (3.4-5.0); BILIRUBIN,TOTAL 0.4 mg/dL (0.1-1.0); TOTAL PROTEIN, SERUM 6.5 g/dL (6.4-8.2)
[2017-12-25] MEDS ORDERED: SODIUM CHLORIDE 0.9% 1,000 ML IV ONE (08:00)
[2017-12-25 08:31] LABS: APPEARANCE,URINE CLEAR (CLEAR); BILIRUBIN,URINE NEGATIVE (NEGATIVE); GLUCOSE, URINE (UA) NEGATIVE (NEGATIVE); KETONES,URINE NEGATIVE (NEGATIVE); LEUKOCYTE ESTERASE ,URINE NEGATIVE (NEGATIVE); NITRATE,URINE NEGATIVE (NEGATIVE); OCCULT BLOOD,URINE NEGATIVE (NEGATIVE); PH,URINE 5.5 (5.0-8.0); UROBILINOGEN,URINE 0.2 mg/dL (<=1.0)
[2017-12-25 08:35] LABS: AMPHET/METH SCREEN,URINE NEGATIVE (NEGATIVE); BARBITURATE SCREEN, URINE NEGATIVE (NEGATIVE); BENZODIAZEPINES SCREEN,URINE NEGATIVE (NEGATIVE); CANNABINOID SCREEN,URINE NEGATIVE (NEGATIVE); COCAINE SCREEN,URINE POSITIVE (NEGATIVE); METHADONE SCREEN, URINE NEGATIVE (NEGATIVE); OPIATE SCREEN,URINE NEGATIVE (NEGATIVE)
[2017-12-25 08:36] LABS: PHENCYCLIDINE SCREEN,URINE NEGATIVE (NEGATIVE)
[2017-12-25 08:41] LABS: PROTEIN,URINE NEGATIVE (NEGATIVE)
[2017-12-25 09:42] VITALS: BP 138/85
== END 2017-12-25 11:03 | disposition home or self-care (01) ==
LOC: EMS 07:00
DX: S19.9XXA Unspecified injury of neck, initial encounter (principal); F45.8 Other somatoform disorders; I10 Essential (primary) hypertension; J44.9 Chronic obstructive pulmonary disease, unspecified; F12.90 Cannabis use, unspecified, uncomplicated; F14.90 Cocaine use, unspecified, uncomplicated; Z79.899 Other long term (current) drug therapy; Y04.0XXA Assault by unarmed brawl or fight, initial encounter; Y93.89 Activity, other specified; Y92.89 Other specified places as the place of occurrence of the external cause; Y99.8 Other external cause status
CPT/HCPCS: 36415; 71045; 80053; 80307; 81003; 82550; 83880; 84484; 85025; 85610; 85730; 93005; 94640; 96374; 99285; J2060; J7030; J7613

== ENCOUNTER 2018-03-09 11:47 | Emergency (ER) | payer OTHER ==
[~2018-03-09] VITALS: Ht 170.2 cm; Wt 54.0 kg
[2018-03-09] MEDS ORDERED: ALBUTEROL SULFATE 2.5 MG/0.5 ML NEB SOLUTION NEB ONE ×2 (12:00→12:30)
[2018-03-09] MEDS ORDERED: IPRATROPIUM BROMIDE 0.5 MG/2.5 ML NEB SOLUTION NEB ONE ×2 (12:00→12:30)
[2018-03-09] MEDS ORDERED: CEPHALEXIN MONOHYDRATE 500 MG CAPSULE PO ONE (12:30)
[2018-03-09] MEDS ORDERED: PredniSONE 20 MG TABLET PO ONE (12:30)
[2018-03-09] MEDS ORDERED: ALBUTEROL SULFATE HFA 90 MCG/PUFF 8 GM INHALER IH ONE (12:30)
[2018-03-09] MEDS ORDERED: MUPIROCIN CALCIUM 2% 22 GM OINTMENT TP ONE (14:00)
[2018-03-09 14:21] VITALS: BP 115/77
== END 2018-03-09 14:22 | disposition home or self-care (01) ==
LOC: EMS 11:49
DX: J45.901 Unspecified asthma with (acute) exacerbation (principal); L73.9 Follicular disorder, unspecified; I10 Essential (primary) hypertension; G43.909 Migraine, unspecified, not intractable, without status migrainosus; F12.90 Cannabis use, unspecified, uncomplicated; F14.90 Cocaine use, unspecified, uncomplicated; Z79.899 Other long term (current) drug therapy; Z90.49 Acquired absence of other specified parts of digestive tract
CPT/HCPCS: 71045; 94640; 99284; J7512; J3535

== ENCOUNTER 2018-05-25 00:09 | Inpatient (IN) | payer OTHER ==
[~2018-05-25] VITALS: Ht 167.6 cm; Wt 61.8 kg
[~2018-05-25 00:09] MED LIST changes: -PRED20 PO
[2018-05-25] MEDS ORDERED: IPRATROPIUM BROMIDE 0.5 MG/2.5 ML NEB SOLUTION NEB ONE (00:15)
[2018-05-25] MEDS ORDERED: ALBUTEROL SULFATE 5 MG/ML 20 ML NEB SOLN [BULK] NEB ONE (00:15)
[2018-05-25] MEDS ORDERED: 0.9% SODIUM CHLORIDE 5 ML NEB SOLUTION NEB ONE (00:19)
[2018-05-25] MEDS ORDERED: MethylPREDNISolone SOD SUCC 125 MG/2 ML VIAL IVP ONE (01:00)
[2018-05-25 01:25] LABS: BASOPHILS % (AUTO) 0.4 % (0.0-2.0); EOSINOPHILS % (AUTO) 0.8 % (1.0-6.0); HEMATOCRIT 39.8 % (36-46); LYMPHOCYTES # (AUTO) 0.9 K/uL (1.0-4.8); LYMPHOCYTES % (AUTO) 9.9 % (22.0-44.0); MEAN CORPUSCULAR HEMOGLOBIN 28.8 pg (26.0-34.0); MEAN CORPUSCULAR HGB CONC 32.6 G/dL (31.0-37.0); MEAN CORPUSCULAR VOLUME 88 fL (80-100); MONOCYTES # (AUTO) 0.6 K/uL (0.1-1.0); MONOCYTES % (AUTO) 6.7 % (2.0-9.0); NEUTROPHILS # (AUTO) 7.2 K/uL (1.8-7.7); NEUTROPHILS % (AUTO) 82.2 % (40.0-70.0); PLATELET COUNT (AUTO) 278 K/uL (150-450); RED BLOOD CELL COUNT(AUTO) 4.51 MIL/uL (4.00-5.20); RED CELL DISTRIBUTION WIDTH 16.3 % (11.5-14.5)
[2018-05-25 01:33] LABS: CALCIUM, TOTAL 8.9 mg/dL (8.8-10.5); CREATININE 1.2 mg/dL (0.60-1.30); POTASSIUM 3.4 mmol/L (3.5-5.1)
[2018-05-25 01:38] LABS: ALBUMIN 3.1 g/dL (3.4-5.0); BILIRUBIN,TOTAL 0.7 mg/dL (0.1-1.0); TOTAL PROTEIN, SERUM 7.3 g/dL (6.4-8.2)
[2018-05-25] MEDS ORDERED: CefTRIAXone 1 GM/DEXTROSE 50 ML IV ONE (03:30)
[2018-05-25] MEDS ORDERED: ACETAMINOPHEN 500 MG TABLET PO ONE (03:30)
[2018-05-25] MEDS ORDERED: AZITHROMYCIN 500 MG/NS 250 ML IV ONE (03:30)
[2018-05-25] MEDS ORDERED: IOVERSOL 350 MG/ML 100 ML VIAL ONE (03:38)
[2018-05-25] MEDS ORDERED: SODIUM CHLORIDE 0.9% 100 ML ONE (03:38)
[2018-05-25] MEDS ORDERED: SODIUM CHLORIDE 0.9% 1,650 ML IV ONE (04:41)
[2018-05-25] MEDS ORDERED: SODIUM CHLORIDE 0.9% 1,000 ML IV ONE (04:45)
[2018-05-25] MEDS ORDERED: ACETAMINOPHEN 325 MG TABLET PO PRN ×2 (05:15→08:15)
[2018-05-25] MEDS ORDERED: POTASSIUM CHLORIDE 20 MEQ ER TABLET PO ONE (05:15)
[2018-05-25] MEDS ORDERED: 0.9% SODIUM CHLORIDE 10 ML SYRINGE IVP PRN ×2 (05:15→08:15)
[2018-05-25] MEDS ORDERED: ONDANSETRON HCL 4 MG/2 ML VIAL IVP PRN ×2 (05:15→08:15)
[2018-05-25 05:36] LABS: INFLUENZA TYPE A NEGATIVE FOR TYPE A (NEGATIVE); INFLUENZA TYPE B NEGATIVE FOR TYPE B (NEGATIVE)
[2018-05-25] MEDS ORDERED: ALBUTEROL SULFATE 2.5 MG/0.5 ML NEB SOLUTION NEB SCH (07:00)
[2018-05-25] MEDS ORDERED: IPRATROPIUM BROMIDE 0.5 MG/2.5 ML NEB SOLUTION NEB SCH (07:00)
[2018-05-25] MEDS ORDERED: ZOLPIDEM TARTRATE 5 MG TABLET PO PRN (08:15)
[2018-05-25] MEDS ORDERED: ALBUTEROL SULFATE 2.5 MG/0.5 ML NEB SOLUTION NEB PRN (08:30)
[2018-05-25] MEDS ORDERED: IPRATROPIUM BROMIDE 0.5 MG/2.5 ML NEB SOLUTION NEB PRN (08:30)
[2018-05-25 09:23] VITALS: BP 160/78
[2018-05-25] MEDS: MONTELUKAST SODIUM 10 MG TABLET PO SCH (09:33)
[2018-05-25] MEDS: HEPARIN SODIUM,PORCINE 5,000 UNITS/ML VIAL SQ SCH ×2 (09:34→16:18)
[2018-05-25] MEDS: MethylPREDNISolone SOD SUCC 40 MG/ML VIAL IVP SCH ×2 (09:34→20:12)
[2018-05-25] MEDS: SUMAtriptan SUCCINATE 25 MG TABLET PO PRN (09:34)
[2018-05-25] MEDS: DILTIAZEM HCL 30 MG TABLET PO SCH ×4 (09:34→21:14)
[2018-05-25] MEDS: PANTOPRAZOLE SODIUM 40 MG/VIAL IVP SCH (09:35)
[2018-05-25 11:32] VITALS: BP 129/95
[2018-05-25] MEDS: PROMETH/PHENYLEPHRINE/CODEINE 5 ML ORAL.SYG PO PRN (14:36)
[2018-05-25] MEDS: ALBUTEROL SULFATE 2.5 MG/0.5 ML NEB SOLUTION NEB SCH ×2 (14:46→20:20)
[2018-05-25] MEDS: IPRATROPIUM BROMIDE 0.5 MG/2.5 ML NEB SOLUTION NEB SCH ×2 (14:46→20:20)
[2018-05-25 16:33] VITALS: BP 101/53
[2018-05-25 19:49] VITALS: BP 110/54
[2018-05-25 23:54] VITALS: BP 109/65
[2018-05-26] MEDS: PROMETH/PHENYLEPHRINE/CODEINE 5 ML ORAL.SYG PO PRN ×4 (00:16→23:04)
[2018-05-26] MEDS: HEPARIN SODIUM,PORCINE 5,000 UNITS/ML VIAL SQ SCH ×4 (00:16→23:05)
[2018-05-26] MEDS: IPRATROPIUM BROMIDE 0.5 MG/2.5 ML NEB SOLUTION NEB SCH ×4 (02:22→20:17)
[2018-05-26] MEDS: ALBUTEROL SULFATE 2.5 MG/0.5 ML NEB SOLUTION NEB SCH ×4 (02:23→20:17)
[2018-05-26 04:47] VITALS: BP 121/77
[2018-05-26 06:33] LABS: BASOPHILS % (AUTO) 0.1 % (0.0-2.0); EOSINOPHILS % (AUTO) 0 % (1.0-6.0); HEMATOCRIT 36.3 % (36-46); HEMOGLOBIN 11.5 g/dL (12.0-16.0); LYMPHOCYTES # (AUTO) 0.5 K/uL (1.0-4.8); LYMPHOCYTES % (AUTO) 4.4 % (22.0-44.0); MEAN CORPUSCULAR HEMOGLOBIN 28.3 pg (26.0-34.0); MEAN CORPUSCULAR HGB CONC 31.6 G/dL (31.0-37.0); MEAN CORPUSCULAR VOLUME 90 fL (80-100); MONOCYTES # (AUTO) 0.7 K/uL (0.1-1.0); MONOCYTES % (AUTO) 5.7 % (2.0-9.0); NEUTROPHILS # (AUTO) 10.8 K/uL (1.8-7.7); PLATELET COUNT (AUTO) 269 K/uL (150-450); RED BLOOD CELL COUNT(AUTO) 4.05 MIL/uL (4.00-5.20); RED CELL DISTRIBUTION WIDTH 16.2 % (11.5-14.5)
[2018-05-26 06:37] LABS: ALBUMIN 2.4 g/dL (3.4-5.0); BILIRUBIN,TOTAL 0.2 mg/dL (0.1-1.0); CALCIUM, TOTAL 8.7 mg/dL (8.8-10.5); CREATININE 1.16 mg/dL (0.60-1.30); POTASSIUM 3.9 mmol/L (3.5-5.1); TOTAL PROTEIN, SERUM 6.6 g/dL (6.4-8.2)
[2018-05-26 06:44] LABS: NEUTROPHILS % (AUTO) 89.8 % (40.0-70.0)
[2018-05-26] MEDS ORDERED: CefTRIAXone 1 GM/DEXTROSE 50 ML IV SCH (08:00)
[2018-05-26 08:14] VITALS: BP 136/82
[2018-05-26] MEDS: DILTIAZEM HCL 30 MG TABLET PO SCH ×4 (08:19→20:37)
[2018-05-26] MEDS: MONTELUKAST SODIUM 10 MG TABLET PO SCH (08:19)
[2018-05-26] MEDS ORDERED: AZITHROMYCIN 500 MG/NS 250 ML IV SCH (09:00)
[2018-05-26] MEDS ORDERED: SODIUM CHLORIDE 0.9% 250 ML IV ONE (09:43)
[2018-05-26] MEDS: PANTOPRAZOLE SODIUM 40 MG/VIAL IVP SCH (09:54)
[2018-05-26] MEDS: CefTRIAXone 1 GM/DEXTROSE 50 ML IV SCH (09:54)
[2018-05-26] MEDS: AZITHROMYCIN 500 MG/NS 250 ML IV SCH (09:55)
[2018-05-26] MEDS: MethylPREDNISolone SOD SUCC 40 MG/ML VIAL IVP SCH ×2 (09:55→23:04)
[2018-05-26 11:58] VITALS: BP 122/78
[2018-05-26] MEDS ORDERED: BENZOCAINE/MENTHOL LOZENGE PO PRN (14:15)
[2018-05-26 16:19] VITALS: BP 140/71
[2018-05-26 19:50] VITALS: BP 135/80
[2018-05-26] MEDS: SUMAtriptan SUCCINATE 25 MG TABLET PO PRN (20:38)
[2018-05-26] MEDS: ZOLPIDEM TARTRATE 10 MG TABLET PO PRN (23:05)
[2018-05-26 23:40] VITALS: BP 119/68
[2018-05-27] MEDS: IPRATROPIUM BROMIDE 0.5 MG/2.5 ML NEB SOLUTION NEB SCH ×4 (02:00→19:42)
[2018-05-27] MEDS: ALBUTEROL SULFATE 2.5 MG/0.5 ML NEB SOLUTION NEB SCH ×4 (02:00→19:42)
[2018-05-27 04:21] VITALS: BP 144/93
[2018-05-27] MEDS: HEPARIN SODIUM,PORCINE 5,000 UNITS/ML VIAL SQ SCH ×2 (08:00→16:32)
[2018-05-27 08:44] VITALS: BP 139/80
[2018-05-27] MEDS: CefTRIAXone 1 GM/DEXTROSE 50 ML IV SCH (09:06)
[2018-05-27] MEDS: MethylPREDNISolone SOD SUCC 40 MG/ML VIAL IVP SCH (09:07)
[2018-05-27] MEDS: PANTOPRAZOLE SODIUM 40 MG/VIAL IVP SCH (09:07)
[2018-05-27] MEDS: DILTIAZEM HCL 30 MG TABLET PO SCH ×4 (09:07→20:26)
[2018-05-27] MEDS: AZITHROMYCIN 500 MG/NS 250 ML IV SCH (09:07)
[2018-05-27] MEDS: MONTELUKAST SODIUM 10 MG TABLET PO SCH (09:08)
[2018-05-27] MEDS: PROMETH/PHENYLEPHRINE/CODEINE 5 ML ORAL.SYG PO PRN ×2 (09:17→15:43)
[2018-05-27] MEDS ORDERED: MethylPREDNISolone SOD SUCC 125 MG/2 ML VIAL IVP ONE (09:30)
[2018-05-27 12:05] VITALS: BP 147/88
[2018-05-27] MEDS ORDERED: PredniSONE 20 MG TABLET PO ONE (14:00)
[2018-05-27 15:40] LABS: HEMATOCRIT 35.2 % (36-46); HEMOGLOBIN 11.1 g/dL (12.0-16.0); MEAN CORPUSCULAR HEMOGLOBIN 27.7 pg (26.0-34.0); MEAN CORPUSCULAR HGB CONC 31.4 G/dL (31.0-37.0); MEAN CORPUSCULAR VOLUME 88 fL (80-100); PLATELET COUNT (AUTO) 278 K/uL (150-450); RED BLOOD CELL COUNT(AUTO) 3.99 MIL/uL (4.00-5.20); RED CELL DISTRIBUTION WIDTH 16.3 % (11.5-14.5)
[2018-05-27 15:42] LABS: CALCIUM, TOTAL 8.6 mg/dL (8.8-10.5); CREATININE 1.28 mg/dL (0.60-1.30); POTASSIUM 3.2 mmol/L (3.5-5.1)
[2018-05-27] MEDS: SUMAtriptan SUCCINATE 25 MG TABLET PO PRN (15:47)
[2018-05-27 15:48] LABS: ALBUMIN 2.4 g/dL (3.4-5.0); BILIRUBIN,TOTAL 0.1 mg/dL (0.1-1.0); TOTAL PROTEIN, SERUM 6.1 g/dL (6.4-8.2)
[2018-05-27 15:49] VITALS: BP 143/93
[2018-05-27 17:23] LABS: BAND NEUTROPHILS % (MANUAL) 4 % (0-5); LYMPHOCYTES % (MANUAL) 5 % (22-44); METAMYELOCYTES % 1 % (0-0); MONOCYTES % (MANUAL) 5 % (2-9); MYELOCYTES % 2 % (0-0); SEGMENTED NEUTROPHILS % 83 % (40-70)
[2018-05-27 20:41] VITALS: BP 152/91
[2018-05-28] MEDS: HEPARIN SODIUM,PORCINE 5,000 UNITS/ML VIAL SQ SCH ×2 (00:56→08:00)
[2018-05-28] MEDS: PROMETH/PHENYLEPHRINE/CODEINE 5 ML ORAL.SYG PO PRN ×2 (01:12→11:31)
[2018-05-28] MEDS: ZOLPIDEM TARTRATE 10 MG TABLET PO PRN (01:14)
[2018-05-28 01:15] VITALS: BP 142/88
[2018-05-28] MEDS: ALBUTEROL SULFATE 2.5 MG/0.5 ML NEB SOLUTION NEB SCH ×2 (02:00→08:07)
[2018-05-28] MEDS: IPRATROPIUM BROMIDE 0.5 MG/2.5 ML NEB SOLUTION NEB SCH ×2 (02:00→08:07)
[2018-05-28 05:08] VITALS: BP 151/87
[2018-05-28] MEDS ORDERED: POTASSIUM CHLORIDE 20 MEQ ER TABLET PO ONE ×2 (07:30)
[2018-05-28 07:59] VITALS: BP 147/100
[2018-05-28] MEDS: CefTRIAXone 1 GM/DEXTROSE 50 ML IV SCH (08:37)
[2018-05-28] MEDS: AZITHROMYCIN 500 MG/NS 250 ML IV SCH (08:38)
[2018-05-28] MEDS: DILTIAZEM HCL 30 MG TABLET PO SCH ×2 (08:40→11:31)
[2018-05-28] MEDS: PANTOPRAZOLE SODIUM 40 MG/VIAL IVP SCH (08:40)
[2018-05-28] MEDS: MONTELUKAST SODIUM 10 MG TABLET PO SCH (08:40)
[2018-05-28 11:24] VITALS: BP 154/110
== END 2018-05-28 11:45 | disposition home or self-care (01) | DRG 139 ==
LOC: EMS 00:11 → 5S 05:09
PROVIDERS: ADMIT Internal Medicine; ATTEND Internal Medicine
DX: J18.9 Pneumonia, unspecified organism (principal); E44.0 Moderate protein-calorie malnutrition; J44.0 Chronic obstructive pulmonary disease with (acute) lower respiratory infection; J44.1 Chronic obstructive pulmonary disease with (acute) exacerbation; J45.901 Unspecified asthma with (acute) exacerbation; R00.0 Tachycardia, unspecified; F14.10 Cocaine abuse, uncomplicated; F17.210 Nicotine dependence, cigarettes, uncomplicated; G43.909 Migraine, unspecified, not intractable, without status migrainosus; I10 Essential (primary) hypertension; E87.6 Hypokalemia; Z82.5 Family history of asthma and other chronic lower respiratory diseases; Z68.22 Body mass index [BMI] 22.0-22.9, adult; Z79.899 Other long term (current) drug therapy; Z90.49 Acquired absence of other specified parts of digestive tract; Z71.6 Tobacco abuse counseling
CPT/HCPCS: 71275; 83605; 83735; 85379; 87040; 87804; 93005; 94640; 94644; 96365; 96375; 99291; C9113; G0378; J0456; J0696; J1644; J2370; J2405; J2920; J2930; J7050

== ENCOUNTER 2018-10-09 14:49 | Inpatient (IN) | payer OTHER ==
[~2018-10-09] VITALS: Ht 162.6 cm; Wt 65.0 kg
[~2018-10-09 14:49] MED LIST changes: +CODE10LI PO; -DILT30 PO; +LEVO500 PO; +MULT-1203; +PRED10 PO
[2018-10-09] MEDS ORDERED: ALBUTEROL SULFATE 5 MG/ML 20 ML NEB SOLN [BULK] NEB ONE ×3 (14:53→16:00)
[2018-10-09] MEDS ORDERED: IPRATROPIUM BROMIDE 0.5 MG/2.5 ML NEB SOLUTION NEB ONE ×3 (14:53→16:00)
[2018-10-09] MEDS ORDERED: MethylPREDNISolone SOD SUCC 125 MG/2 ML VIAL IVP ONE (15:00)
[2018-10-09 15:15] LABS: BASOPHILS % (AUTO) 0.2 % (0.0-2.0); HEMATOCRIT 39.3 % (36-46); HEMOGLOBIN 12.4 g/dL (12.0-16.0); LYMPHOCYTES % (AUTO) 21.1 % (22.0-44.0); MEAN CORPUSCULAR HEMOGLOBIN 28.1 pg (26.0-34.0); MEAN CORPUSCULAR HGB CONC 31.6 G/dL (31.0-37.0); MEAN CORPUSCULAR VOLUME 89 fL (80-100); MONOCYTES # (AUTO) 0.8 K/uL (0.1-1.0); MONOCYTES % (AUTO) 8.1 % (2.0-9.0); NEUTROPHILS # (AUTO) 4.1 K/uL (1.8-7.7); NEUTROPHILS % (AUTO) 43.9 % (40.0-70.0); PLATELET COUNT (AUTO) 379 K/uL (150-450); RED BLOOD CELL COUNT(AUTO) 4.43 MIL/uL (4.00-5.20); RED CELL DISTRIBUTION WIDTH 17.1 % (11.5-14.5)
[2018-10-09 15:22] LABS: ANION GAP 8 mmol/L (8-16); CARBON DIOXIDE 27 mmol/L (22-29); CHLORIDE 110 mmol/L (98-107); CREATININE 1.09 mg/dL (0.60-1.30); GLUCOSE,RANDOM 108 mg/dL (70-110); POTASSIUM 3.5 mmol/L (3.5-5.1); SODIUM SERUM 145 mmol/L (136-145); UREA NITROGEN, BLOOD 8 mg/dL (7-18)
[2018-10-09 15:23] LABS: CALCIUM, TOTAL 8.9 mg/dL (8.8-10.5); GLOMERULAR FILTR. RATE CALC > 60 mL/min (>60)
[2018-10-09 15:29] LABS: ALANINE AMINOTRANSFERASE 14 U/L (12-78); ALBUMIN 3.4 g/dL (3.4-5.0); ALKALINE PHOSPHATASE 118 U/L (46-116); ASPARTATE AMINOTRANSFERASE 14 U/L (15-37); BILIRUBIN,TOTAL 0.2 mg/dL (0.1-1.0); TOTAL PROTEIN, SERUM 7.3 g/dL (6.4-8.2)
[2018-10-09 15:44] LABS: ABG A-A DIFF O2 198.7 mmHg (10-20.0); ABG BASE EXCESS -5.6 mmol/L (-2.0-3.0); ABG CARBOXYHEMOGLOBIN 0.5 % (0.0-1.5); ABG HCO3 20.2 mmol/L (22.0-26.0); ABG METHEMOGLOBIN 0.4 % (0.0-1.5); ABG OXYGEN CONTENT 19.7 mL/dL (15.0-23.0); ABG OXYGEN SATURATION 99.7 % (95.0-98.0); ABG OXYHEMOGLOBIN 98.8 % (94.0-100.0); ABG PCO2 42 mmHg (35-45); ABG PH 7.312 (7.35-7.450); ABG TOTAL HEMOGLOBIN 13.3 G/dL (12.0-18.0); PO2, ARTERIAL BG 472.5 mmHg (84.0-92.0); SITE, BLOOD GAS RT RADIAL; SOURCE, BLOOD GAS ARTERIAL; TEMPERATURE, FAHRENHEIT, BG 98.6 FAHREN (96.0-98.6)
[2018-10-09 15:45] LABS: O2 DEVICE,BLOOD GAS BIPAP (ROOM AIR); SPONTANEOUS VT, BG 500 ml
[2018-10-09] MEDS ORDERED: HydrALAZINE HCL 20 MG/ML VIAL IVP ONE (15:45)
[2018-10-09 15:47] LABS: B-TYPE NATRIURETIC PEPTIDE 20 pg/mL (0-100); EOSINOPHILS % (AUTO) 26.7 % (1.0-6.0)
[2018-10-09] MEDS ORDERED: MORPHINE SULFATE 4 MG/ML SYRINGE IVP ONE (16:00)
[2018-10-09] MEDS ORDERED: ONDANSETRON HCL 4 MG/2 ML VIAL IVP ONE (16:00)
[2018-10-09] MEDS ORDERED: 0.9% SODIUM CHLORIDE 5 ML NEB SOLUTION NEB ONE (16:16)
[2018-10-09] MEDS ORDERED: IOVERSOL 350 MG/ML 100 ML VIAL ONE (18:29)
[2018-10-09] MEDS ORDERED: SODIUM CHLORIDE 0.9% 100 ML ONE (18:30)
[2018-10-09 19:45] LABS: APPEARANCE,URINE CLEAR (CLEAR); BILIRUBIN,URINE NEGATIVE (NEGATIVE); GLUCOSE, URINE (UA) NEGATIVE (NEGATIVE); KETONES,URINE NEGATIVE (NEGATIVE); LEUKOCYTE ESTERASE ,URINE NEGATIVE (NEGATIVE); NITRATE,URINE NEGATIVE (NEGATIVE); OCCULT BLOOD,URINE NEGATIVE (NEGATIVE); PH,URINE 6.5 (5.0-8.0); PROTEIN,URINE NEGATIVE (NEGATIVE); UROBILINOGEN,URINE 0.2 mg/dL (<=1.0)
[2018-10-09] MEDS ORDERED: LORazepam 2 MG/ML VIAL IVP PRN (21:15)
[2018-10-09] MEDS ORDERED: ALBUTEROL SULFATE 2.5 MG/0.5 ML NEB SOLUTION NEB PRN (21:15)
[2018-10-09] MEDS ORDERED: MAGNESIUM HYDROXIDE SUSPENSION 30 ML UDCUP PO PRN (21:15)
[2018-10-09] MEDS ORDERED: ACETAMINOPHEN 325 MG TABLET PO PRN (21:15)
[2018-10-09] MEDS ORDERED: IPRATROPIUM BROMIDE 0.5 MG/2.5 ML NEB SOLUTION NEB PRN (21:15)
[2018-10-09 22:17] VITALS: BP 115/67
[2018-10-09] MEDS: MethylPREDNISolone SOD SUCC 125 MG/2 ML VIAL IVP SCH (23:40)
[2018-10-09] MEDS: HEPARIN SODIUM,PORCINE 5,000 UNITS/ML VIAL SQ SCH (23:40)
[2018-10-10] MEDS: AZITHROMYCIN 500 MG/NS 250 ML IV SCH ×2 (00:29→22:00)
[2018-10-10 03:53] VITALS: BP 145/85
[2018-10-10] MEDS: MethylPREDNISolone SOD SUCC 125 MG/2 ML VIAL IVP SCH ×3 (05:56→17:29)
[2018-10-10] MEDS: HEPARIN SODIUM,PORCINE 5,000 UNITS/ML VIAL SQ SCH ×3 (07:39→23:59)
[2018-10-10] MEDS: DOCUSATE SODIUM 100 MG CAPSULE PO SCH ×2 (07:41→20:04)
[2018-10-10] MEDS: OxyCODONE HCL/ACETAMINOPHEN 5-325 MG TABLET PO PRN (07:41)
[2018-10-10] MEDS: FAMOTIDINE 20 MG TABLET PO SCH (07:41)
[2018-10-10 07:43] VITALS: BP 130/84
[2018-10-10] MEDS ORDERED: BENZONATATE 100 MG CAPSULE PO PRN (10:45)
[2018-10-10 11:01] VITALS: BP 137/76
[2018-10-10] MEDS: IPRATROPIUM BROMIDE 0.5 MG/2.5 ML NEB SOLUTION NEB SCH ×4 (11:58→23:03)
[2018-10-10] MEDS: ALBUTEROL SULFATE 2.5 MG/0.5 ML NEB SOLUTION NEB SCH ×4 (11:58→23:03)
[2018-10-10] MEDS: GuaiFENesin/CODEINE [SUGAR FREE] 200-20MG/10 ML SYRUP UDCUP PO PRN (12:52)
[2018-10-10 15:50] VITALS: BP 149/80
[2018-10-10] MEDS: HYDROCODONE/CHLORPHEN POLIS 10-8 MG/5 ML ORAL.SYG PO SCH (15:53)
[2018-10-10] MEDS: SUMAtriptan SUCCINATE 25 MG TABLET PO PRN ×2 (15:55→21:54)
[2018-10-10 19:23] VITALS: BP 142/84
[2018-10-10 23:38] VITALS: BP 142/86
[2018-10-11] MEDS: HYDROCODONE/CHLORPHEN POLIS 10-8 MG/5 ML ORAL.SYG PO SCH ×4 (00:02→23:02)
[2018-10-11] MEDS: IPRATROPIUM BROMIDE 0.5 MG/2.5 ML NEB SOLUTION NEB SCH ×6 (03:58→23:48)
[2018-10-11] MEDS: ALBUTEROL SULFATE 2.5 MG/0.5 ML NEB SOLUTION NEB SCH ×6 (03:58→23:48)
[2018-10-11 04:20] VITALS: BP 147/94
[2018-10-11] MEDS: SUMAtriptan SUCCINATE 25 MG TABLET PO PRN (04:26)
[2018-10-11] MEDS: MethylPREDNISolone SOD SUCC 125 MG/2 ML VIAL IVP SCH ×5 (05:46→23:01)
[2018-10-11 07:49] VITALS: BP 145/87
[2018-10-11] MEDS: FAMOTIDINE 20 MG TABLET PO SCH (08:19)
[2018-10-11] MEDS: DOCUSATE SODIUM 100 MG CAPSULE PO SCH ×2 (08:19→20:54)
[2018-10-11] MEDS: HEPARIN SODIUM,PORCINE 5,000 UNITS/ML VIAL SQ SCH ×3 (08:20→23:01)
[2018-10-11] MEDS: OxyCODONE HCL/ACETAMINOPHEN 5-325 MG TABLET PO PRN ×2 (08:47→15:08)
[2018-10-11 11:08] VITALS: BP 145/88
[2018-10-11 15:22] VITALS: BP 132/97
[2018-10-11] MEDS ORDERED: BENZONATATE 100 MG CAPSULE PO PRN (18:45)
[2018-10-11 19:33] VITALS: BP 140/88
[2018-10-11] MEDS: GuaiFENesin/CODEINE [SUGAR FREE] 200-20MG/10 ML SYRUP UDCUP PO PRN (20:54)
[2018-10-11] MEDS: AZITHROMYCIN 500 MG/NS 250 ML IV SCH (23:01)
[2018-10-11 23:33] VITALS: BP 152/95
[2018-10-12] MEDS: SUMAtriptan SUCCINATE 25 MG TABLET PO PRN (00:02)
[2018-10-12 00:52] LABS: AMPHET/METH SCREEN,URINE NEGATIVE (NEGATIVE); BARBITURATE SCREEN, URINE NEGATIVE (NEGATIVE); BENZODIAZEPINES SCREEN,URINE NEGATIVE (NEGATIVE); CANNABINOID SCREEN,URINE NEGATIVE (NEGATIVE); COCAINE SCREEN,URINE POSITIVE (NEGATIVE); METHADONE SCREEN, URINE NEGATIVE (NEGATIVE); OPIATE SCREEN,URINE POSITIVE (NEGATIVE)
[2018-10-12 00:53] LABS: PHENCYCLIDINE SCREEN,URINE NEGATIVE (NEGATIVE)
[2018-10-12] MEDS: ALBUTEROL SULFATE 2.5 MG/0.5 ML NEB SOLUTION NEB SCH ×6 (04:44→23:24)
[2018-10-12] MEDS: IPRATROPIUM BROMIDE 0.5 MG/2.5 ML NEB SOLUTION NEB SCH ×6 (04:44→23:24)
[2018-10-12 05:10] VITALS: BP 135/100
[2018-10-12] MEDS: MethylPREDNISolone SOD SUCC 125 MG/2 ML VIAL IVP SCH ×4 (06:01→23:09)
[2018-10-12 07:40] VITALS: BP 149/94
[2018-10-12] MEDS: HYDROCODONE/CHLORPHEN POLIS 10-8 MG/5 ML ORAL.SYG PO SCH ×3 (08:28→23:09)
[2018-10-12] MEDS: DOCUSATE SODIUM 100 MG CAPSULE PO SCH ×2 (08:28→21:01)
[2018-10-12] MEDS: HEPARIN SODIUM,PORCINE 5,000 UNITS/ML VIAL SQ SCH ×3 (08:28→23:09)
[2018-10-12] MEDS: FAMOTIDINE 20 MG TABLET PO SCH (08:29)
[2018-10-12 11:15] VITALS: BP 130/113
[2018-10-12] MEDS: GuaiFENesin SR 600 MG ER TABLET PO SCH ×2 (11:22→21:01)
[2018-10-12] MEDS: OxyCODONE HCL/ACETAMINOPHEN 5-325 MG TABLET PO PRN ×3 (11:25→21:04)
[2018-10-12 15:23] VITALS: BP 147/95
[2018-10-12 20:00] VITALS: BP 158/94
[2018-10-12] MEDS: AZITHROMYCIN 500 MG/NS 250 ML IV SCH (23:09)
[2018-10-12 23:39] VITALS: BP 155/98
[2018-10-13] MEDS: MethylPREDNISolone SOD SUCC 125 MG/2 ML VIAL IVP SCH (05:39)
[2018-10-13] MEDS: ALBUTEROL SULFATE 2.5 MG/0.5 ML NEB SOLUTION NEB SCH ×4 (05:45→14:13)
[2018-10-13] MEDS: IPRATROPIUM BROMIDE 0.5 MG/2.5 ML NEB SOLUTION NEB SCH ×4 (05:45→14:13)
[2018-10-13 07:49] VITALS: BP 147/94
[2018-10-13] MEDS: FAMOTIDINE 20 MG TABLET PO SCH (08:31)
[2018-10-13] MEDS: HYDROCODONE/CHLORPHEN POLIS 10-8 MG/5 ML ORAL.SYG PO SCH (08:31)
[2018-10-13] MEDS: DOCUSATE SODIUM 100 MG CAPSULE PO SCH (08:31)
[2018-10-13] MEDS: OxyCODONE HCL/ACETAMINOPHEN 5-325 MG TABLET PO PRN (08:31)
[2018-10-13] MEDS: GuaiFENesin SR 600 MG ER TABLET PO SCH (08:32)
[2018-10-13] MEDS: HEPARIN SODIUM,PORCINE 5,000 UNITS/ML VIAL SQ SCH (08:32)
[2018-10-13] MEDS ORDERED: MULTIVITAMINS WITH MINERALS, THERAPEUTIC TABLET PO SCH (09:00)
[2018-10-13] MEDS ORDERED: PredniSONE 20 MG TABLET PO SCH (09:00)
[2018-10-13 11:47] VITALS: BP 151/94
[2018-10-13] MEDS ORDERED: GUAI600T30 PO (14:34)
[2018-10-13] MEDS ORDERED: TUSSI5L PO (14:35)
[2018-10-13] MEDS ORDERED: PRED20 PO ×2 (14:36→14:37)
[2018-10-13] MEDS ORDERED: PRED10 PO (14:38)
[2018-10-13] MEDS ORDERED: PRED5 PO (14:38)
== END 2018-10-13 15:15 | disposition home or self-care (01) | DRG 140 ==
LOC: EMS 14:51 → 5S 22:01
PROVIDERS: ADMIT Internal Medicine; ATTEND Internal Medicine
DX: J44.1 Chronic obstructive pulmonary disease with (acute) exacerbation (principal); J96.01 Acute respiratory failure with hypoxia; E43 Unspecified severe protein-calorie malnutrition; J45.901 Unspecified asthma with (acute) exacerbation; K21.9 Gastro-esophageal reflux disease without esophagitis; I10 Essential (primary) hypertension; D53.9 Nutritional anemia, unspecified; F17.200 Nicotine dependence, unspecified, uncomplicated; G43.909 Migraine, unspecified, not intractable, without status migrainosus; F14.10 Cocaine abuse, uncomplicated; Z90.49 Acquired absence of other specified parts of digestive tract; Z82.5 Family history of asthma and other chronic lower respiratory diseases; Z68.24 Body mass index [BMI] 24.0-24.9, adult; Z91.19 Patient's noncompliance with other medical treatment and regimen
CPT/HCPCS: 71275; 80307; 82805; 83036; 83605; 85379; 87040; 93005; 94640; 94644; 94645; 94660; 96374; 96375; 99291; J0360; J0456; J1644; J2270; J2405; J2930; J7050

== ENCOUNTER 2018-11-23 17:21 | Emergency (ER) | payer OTHER ==
[~2018-11-23] VITALS: Ht 167.6 cm; Wt 81.8 kg
[~2018-11-23 17:21] MED LIST changes: -CODE10LI PO; +GUAI600T30 PO; -LEVO500 PO; -PRED10 PO
[2018-11-23] MEDS ORDERED: ALBUTEROL SULFATE 5 MG/ML 20 ML NEB SOLN [BULK] NEB ONE (17:30)
[2018-11-23] MEDS ORDERED: IPRATROPIUM BROMIDE 0.5 MG/2.5 ML NEB SOLUTION NEB ONE (17:30)
[2018-11-23] MEDS ORDERED: 0.9% SODIUM CHLORIDE 15 ML NEB SOLUTION NEB ONE (17:34)
[2018-11-23] MEDS ORDERED: MethylPREDNISolone SOD SUCC 125 MG/2 ML VIAL IVP ONE (17:45)
[2018-11-23] MEDS ORDERED: KETOROLAC TROMETHAMINE 30 MG/ML VIAL IVP ONE (17:45)
[2018-11-23] MEDS ORDERED: ALBUTEROL SULFATE HFA 90 MCG/PUFF 8 GM INHALER IH ONE (17:45)
[2018-11-23 19:26] VITALS: BP 162/100
== END 2018-11-23 19:37 | disposition home or self-care (01) ==
LOC: EMS 17:22
DX: J45.901 Unspecified asthma with (acute) exacerbation (principal); M25.572 Pain in left ankle and joints of left foot; I10 Essential (primary) hypertension; G43.909 Migraine, unspecified, not intractable, without status migrainosus; F12.90 Cannabis use, unspecified, uncomplicated; F14.90 Cocaine use, unspecified, uncomplicated; Z90.49 Acquired absence of other specified parts of digestive tract
CPT/HCPCS: 71046; 73610; 94640; 94644; 96374; 96375; 99285; J1885; J2930; J3535

== ENCOUNTER 2019-01-07 07:08 | Inpatient (IN) | payer OTHER ==
[~2019-01-07] VITALS: Ht 167.6 cm; Wt 58.6 kg
[2019-01-07] MEDS ORDERED: IPRATROPIUM BROMIDE 0.5 MG/2.5 ML NEB SOLUTION NEB ONE (07:30)
[2019-01-07] MEDS ORDERED: ALBUTEROL SULFATE 5 MG/ML 20 ML NEB SOLN [BULK] NEB ONE (07:30)
[2019-01-07] MEDS ORDERED: MethylPREDNISolone SOD SUCC 125 MG/2 ML VIAL IVP ONE (07:30)
[2019-01-07] MEDS ORDERED: 0.9% SODIUM CHLORIDE 5 ML NEB SOLUTION NEB ONE ×3 (07:39→22:53)
[2019-01-07 08:22] LABS: BASOPHILS % (AUTO) 0.9 % (0.0-2.0); HEMATOCRIT 40.2 % (36-46); LYMPHOCYTES # (AUTO) 1.3 K/uL (1.0-4.8); LYMPHOCYTES % (AUTO) 24.6 % (22.0-44.0); MEAN CORPUSCULAR HEMOGLOBIN 28.1 pg (26.0-34.0); MEAN CORPUSCULAR HGB CONC 32.4 G/dL (31.0-37.0); MEAN CORPUSCULAR VOLUME 87 fL (80-100); MONOCYTES # (AUTO) 0.4 K/uL (0.1-1.0); MONOCYTES % (AUTO) 8.3 % (2.0-9.0); NEUTROPHILS # (AUTO) 1.8 K/uL (1.8-7.7); NEUTROPHILS % (AUTO) 33.9 % (40.0-70.0); PLATELET COUNT (AUTO) 328 K/uL (150-450); RED BLOOD CELL COUNT(AUTO) 4.63 MIL/uL (4.00-5.20); RED CELL DISTRIBUTION WIDTH 18.2 % (11.5-14.5)
[2019-01-07 08:23] LABS: EOSINOPHILS % (AUTO) 32.3 % (1.0-6.0)
[2019-01-07 08:45] LABS: ALBUMIN 3.5 g/dL (3.4-5.0); BILIRUBIN,TOTAL 0.4 mg/dL (0.1-1.0); CALCIUM, TOTAL 8.4 mg/dL (8.8-10.5); CREATININE 1.22 mg/dL (0.60-1.30)
[2019-01-07] MEDS ORDERED: POTASSIUM CHLORIDE 20 MEQ ER TABLET PO ONE (09:30)
[2019-01-07] MEDS ORDERED: LORazepam 2 MG/ML VIAL IM ONE (09:30)
[2019-01-07 09:45] LABS: MAGNESIUM 2.1 mg/dL (1.80-2.40)
[2019-01-07] MEDS ORDERED: IBUPROFEN 600 MG TABLET PO ONE (11:15)
[2019-01-07] MEDS ORDERED: 0.9% SODIUM CHLORIDE 10 ML SYRINGE IVP PRN (13:45)
[2019-01-07] MEDS ORDERED: ONDANSETRON HCL 4 MG/2 ML VIAL IVP PRN (13:45)
[2019-01-07] MEDS ORDERED: ACETAMINOPHEN 325 MG TABLET PO PRN (13:45)
[2019-01-07 14:50] VITALS: BP 153/101
[2019-01-07] MEDS: ALBUTEROL SULFATE 2.5 MG/0.5 ML NEB SOLUTION NEB SCH ×3 (15:00→23:00)
[2019-01-07] MEDS: IPRATROPIUM BROMIDE 0.5 MG/2.5 ML NEB SOLUTION NEB SCH ×3 (15:00→23:00)
[2019-01-07] MEDS ORDERED: INFLUENZA VIRUS VACCINE QVS 2019-20 (3YR+)/PF 60 MCG/0.5 ML SYRINGE IM ONE (17:45)
[2019-01-07] MEDS ORDERED: -PHARMACY VACCINE NOTE- MISC ONE (17:45)
[2019-01-07 21:04] VITALS: BP 150/102
[2019-01-07] MEDS ORDERED: ALBUTEROL SULFATE HFA 90 MCG/PUFF 8 GM INHALER IH PRN (21:45)
[2019-01-07] MEDS: PROMETH/PHENYLEPHRINE/CODEINE 5 ML ORAL.SYG PO PRN (22:33)
[2019-01-08] VITALS (7 sets, daily range): BP systolic 125–158; BP diastolic 59–105
[2019-01-08] MEDS ORDERED: ALBUTEROL SULFATE HFA 90 MCG/PUFF 8 GM INHALER IH PRN (00:30)
[2019-01-08] MEDS ORDERED: 0.9% SODIUM CHLORIDE 5 ML NEB SOLUTION NEB ONE ×2 (02:55→19:43)
[2019-01-08] MEDS ORDERED: 0.9% SODIUM CHLORIDE 10 ML SYRINGE IVP PRN (03:00)
[2019-01-08] MEDS ORDERED: ACETAMINOPHEN 325 MG TABLET PO PRN (03:00)
[2019-01-08] MEDS ORDERED: MAGNESIUM HYDROXIDE SUSPENSION 30 ML UDCUP PO PRN (03:00)
[2019-01-08] MEDS ORDERED: OxyCODONE HCL/ACETAMINOPHEN 5-325 MG TABLET PO PRN (03:00)
[2019-01-08] MEDS ORDERED: ALBUTEROL SULFATE 2.5 MG/0.5 ML NEB SOLUTION NEB PRN (03:00)
[2019-01-08] MEDS ORDERED: ONDANSETRON HCL 4 MG/2 ML VIAL IVP PRN (03:00)
[2019-01-08] MEDS: ALBUTEROL SULFATE 2.5 MG/0.5 ML NEB SOLUTION NEB PRN ×2 (03:15→12:23)
[2019-01-08] MEDS: IPRATROPIUM BROMIDE 0.5 MG/2.5 ML NEB SOLUTION NEB PRN ×2 (03:16→12:23)
[2019-01-08] MEDS: PROMETH/PHENYLEPHRINE/CODEINE 5 ML ORAL.SYG PO PRN ×2 (03:23→12:31)
[2019-01-08] MEDS: MethylPREDNISolone SOD SUCC 125 MG/2 ML VIAL IVP SCH ×4 (03:24→23:39)
[2019-01-08 06:59] LABS: CALCIUM, TOTAL 8.9 mg/dL (8.8-10.5); CREATININE 1.21 mg/dL (0.60-1.30); POTASSIUM 3.7 mmol/L (3.5-5.1)
[2019-01-08] MEDS: FAMOTIDINE 10 MG/ML 2 ML VIAL IVP SCH (07:56)
[2019-01-08] MEDS: DOCUSATE SODIUM 100 MG CAPSULE PO SCH ×2 (07:56→21:02)
[2019-01-08] MEDS: MONTELUKAST SODIUM 10 MG TABLET PO SCH (07:56)
[2019-01-08] MEDS: OxyCODONE HCL/ACETAMINOPHEN 5-325 MG TABLET PO PRN ×2 (07:57→18:59)
[2019-01-08] MEDS: ALBUTEROL SULFATE 2.5 MG/0.5 ML NEB SOLUTION NEB SCH ×3 (08:39→19:55)
[2019-01-08] MEDS: IPRATROPIUM BROMIDE 0.5 MG/2.5 ML NEB SOLUTION NEB SCH ×3 (08:40→19:52)
[2019-01-09] MEDS: PROMETH/PHENYLEPHRINE/CODEINE 5 ML ORAL.SYG PO PRN ×3 (02:02→21:40)
[2019-01-09] MEDS: IPRATROPIUM BROMIDE 0.5 MG/2.5 ML NEB SOLUTION NEB SCH ×4 (02:16→19:31)
[2019-01-09] MEDS: ALBUTEROL SULFATE 2.5 MG/0.5 ML NEB SOLUTION NEB SCH ×4 (02:17→19:31)
[2019-01-09 04:21] VITALS: BP 138/72
[2019-01-09 06:09] LABS: BASOPHILS % (AUTO) 0.1 % (0.0-2.0); EOSINOPHILS % (AUTO) 0 % (1.0-6.0); HEMATOCRIT 36.8 % (36-46); HEMOGLOBIN 11.7 g/dL (12.0-16.0); LYMPHOCYTES # (AUTO) 0.5 K/uL (1.0-4.8); LYMPHOCYTES % (AUTO) 5.9 % (22.0-44.0); MEAN CORPUSCULAR HEMOGLOBIN 27.7 pg (26.0-34.0); MEAN CORPUSCULAR HGB CONC 31.6 G/dL (31.0-37.0); MEAN CORPUSCULAR VOLUME 88 fL (80-100); MONOCYTES # (AUTO) 0.2 K/uL (0.1-1.0); PLATELET COUNT (AUTO) 308 K/uL (150-450); RED BLOOD CELL COUNT(AUTO) 4.21 MIL/uL (4.00-5.20); RED CELL DISTRIBUTION WIDTH 18.3 % (11.5-14.5)
[2019-01-09 06:19] LABS: CREATININE 1.16 mg/dL (0.60-1.30); POTASSIUM 3.8 mmol/L (3.5-5.1)
[2019-01-09 07:00] VITALS: BP 142/96
[2019-01-09] MEDS: MethylPREDNISolone SOD SUCC 125 MG/2 ML VIAL IVP SCH ×2 (09:17→16:24)
[2019-01-09] MEDS: DOCUSATE SODIUM 100 MG CAPSULE PO SCH ×2 (09:18→20:15)
[2019-01-09] MEDS: MONTELUKAST SODIUM 10 MG TABLET PO SCH (09:18)
[2019-01-09] MEDS: FAMOTIDINE 10 MG/ML 2 ML VIAL IVP SCH ×2 (09:18→20:15)
[2019-01-09] MEDS: OxyCODONE HCL/ACETAMINOPHEN 5-325 MG TABLET PO PRN ×2 (09:22→18:36)
[2019-01-09 11:19] VITALS: BP 150/96
[2019-01-09] MEDS: CIPROFLOXACIN HCL 0.3% 2.5 ML OPHTHALMIC SOLUTION OD SCH ×3 (14:30→21:40)
[2019-01-09 15:10] VITALS: BP 152/86
[2019-01-09 20:07] VITALS: BP 147/95
[2019-01-09] MEDS: HEPARIN SODIUM,PORCINE 5,000 UNITS/ML VIAL SQ SCH (20:15)
[2019-01-10 00:21] VITALS: BP 158/95
[2019-01-10] MEDS: MethylPREDNISolone SOD SUCC 125 MG/2 ML VIAL IVP SCH ×2 (00:25→07:49)
[2019-01-10] MEDS: IPRATROPIUM BROMIDE 0.5 MG/2.5 ML NEB SOLUTION NEB SCH ×2 (02:00→08:50)
[2019-01-10] MEDS: ALBUTEROL SULFATE 2.5 MG/0.5 ML NEB SOLUTION NEB SCH ×2 (02:00→08:50)
[2019-01-10 04:46] VITALS: BP 139/79
[2019-01-10] MEDS: PROMETH/PHENYLEPHRINE/CODEINE 5 ML ORAL.SYG PO PRN (06:38)
[2019-01-10] MEDS: CIPROFLOXACIN HCL 0.3% 2.5 ML OPHTHALMIC SOLUTION OD SCH ×2 (06:38→10:26)
[2019-01-10 06:56] LABS: BASOPHILS % (AUTO) 0.1 % (0.0-2.0); EOSINOPHILS % (AUTO) 0 % (1.0-6.0); HEMATOCRIT 35.4 % (36-46); HEMOGLOBIN 11.3 g/dL (12.0-16.0); LYMPHOCYTES # (AUTO) 0.5 K/uL (1.0-4.8); LYMPHOCYTES % (AUTO) 4.5 % (22.0-44.0); MEAN CORPUSCULAR HGB CONC 31.9 G/dL (31.0-37.0); MEAN CORPUSCULAR VOLUME 88 fL (80-100); MONOCYTES # (AUTO) 0.3 K/uL (0.1-1.0); MONOCYTES % (AUTO) 3.2 % (2.0-9.0); NEUTROPHILS # (AUTO) 10.1 K/uL (1.8-7.7); PLATELET COUNT (AUTO) 306 K/uL (150-450); RED BLOOD CELL COUNT(AUTO) 4.03 MIL/uL (4.00-5.20); RED CELL DISTRIBUTION WIDTH 18.4 % (11.5-14.5)
[2019-01-10 07:10] LABS: NEUTROPHILS % (AUTO) 92.2 % (40.0-70.0)
[2019-01-10 07:18] VITALS: BP 158/96
[2019-01-10 07:34] LABS: ANION GAP 9 mmol/L (8-16); CALCIUM, TOTAL 8.5 mg/dL (8.8-10.5); CARBON DIOXIDE 26 mmol/L (22-29); CHLORIDE 109 mmol/L (98-107); CREATININE 0.99 mg/dL (0.60-1.30); GLOMERULAR FILTR. RATE CALC > 60 mL/min (>60); GLUCOSE,RANDOM 105 mg/dL (70-110); POTASSIUM 3.5 mmol/L (3.5-5.1); SODIUM SERUM 144 mmol/L (136-145); UREA NITROGEN, BLOOD 15 mg/dL (7-18)
[2019-01-10] MEDS: DOCUSATE SODIUM 100 MG CAPSULE PO SCH (07:48)
[2019-01-10] MEDS: OxyCODONE HCL/ACETAMINOPHEN 5-325 MG TABLET PO PRN (07:49)
[2019-01-10] MEDS: MONTELUKAST SODIUM 10 MG TABLET PO SCH (07:49)
[2019-01-10] MEDS: HEPARIN SODIUM,PORCINE 5,000 UNITS/ML VIAL SQ SCH (07:49)
[2019-01-10] MEDS: FAMOTIDINE 10 MG/ML 2 ML VIAL IVP SCH (07:50)
[2019-01-10 11:02] VITALS: BP 161/97
[2019-01-10] MEDS ORDERED: PANT40TA25 PO (12:50)
[2019-01-10] MEDS ORDERED: CILO2.5OS OD ×2 (12:51→13:44)
[2019-01-10] MEDS ORDERED: DOXY150T5 PO (13:36)
[2019-01-10] MEDS ORDERED: IPRA3AMP24 IH (13:37)
[2019-01-10] MEDS ORDERED: GUAIF600 PO (13:37)
[2019-01-10] MEDS ORDERED: MEDR4 PO (13:42)
== END 2019-01-10 13:55 | disposition home or self-care (01) | DRG 140 ==
LOC: EMS 07:08 → 5S 13:55 → EMS 14:48
PROVIDERS: ADMIT Hospitalist; ATTEND Hospitalist
DX: J44.1 Chronic obstructive pulmonary disease with (acute) exacerbation (principal); J96.21 Acute and chronic respiratory failure with hypoxia; J45.901 Unspecified asthma with (acute) exacerbation; E87.6 Hypokalemia; D53.9 Nutritional anemia, unspecified; I10 Essential (primary) hypertension; F12.10 Cannabis abuse, uncomplicated; K21.9 Gastro-esophageal reflux disease without esophagitis; F14.10 Cocaine abuse, uncomplicated; F17.210 Nicotine dependence, cigarettes, uncomplicated; G43.909 Migraine, unspecified, not intractable, without status migrainosus; Z91.19 Patient's noncompliance with other medical treatment and regimen; Z23 Encounter for immunization; Z79.899 Other long term (current) drug therapy; Z90.49 Acquired absence of other specified parts of digestive tract; Z71.51 Drug abuse counseling and surveillance of drug abuser; Z71.6 Tobacco abuse counseling
CPT/HCPCS: 83735; 90686; 93005; 94640; 94644; 99291; J1644; J2060; J2370; J2405; J2930; J3490; J3535

== ENCOUNTER 2019-01-11 08:30 | Emergency (ER) | payer OTHER ==
[~2019-01-11] VITALS: Ht 167.6 cm; Wt 58.2 kg
[~2019-01-11 08:30] MED LIST changes: -BENZ-51 PO; +CILO2.5OS OD; +DOXY150T5 PO; -GUAI600T30 PO; -GUAIF10 PO; +GUAIF600 PO; +IPRA3AMP24 IH; +MEDR4 PO; -OMEP20 PO; +PANT40TA25 PO
[2019-01-11] MEDS ORDERED: VANCOMYCIN HCL 1.5 GM in DEXTROSE 5%-WATER 250 ML IV ONE (09:00)
[2019-01-11] MEDS ORDERED: CefTRIAXone 1 GM/DEXTROSE 50 ML IV ONE (09:00)
[2019-01-11] MEDS ORDERED: ALBUTEROL SULFATE 2.5 MG/0.5 ML NEB SOLUTION NEB ONE ×2 (09:00→12:30)
[2019-01-11] MEDS ORDERED: IPRATROPIUM BROMIDE 0.5 MG/2.5 ML NEB SOLUTION NEB ONE ×2 (09:00→12:30)
[2019-01-11] MEDS ORDERED: SODIUM CHLORIDE 0.9% 1,000 ML IV ONE (09:00)
[2019-01-11] MEDS ORDERED: 0.9% SODIUM CHLORIDE 10 ML SYRINGE IVP PRN (09:00)
[2019-01-11] MEDS ORDERED: IOVERSOL 350 MG/ML 100 ML VIAL ONE (09:17)
[2019-01-11] MEDS ORDERED: KETOROLAC TROMETHAMINE 30 MG/ML VIAL IVP ONE ×2 (09:30→15:00)
[2019-01-11 09:40] LABS: BASOPHILS % (AUTO) 0.4 % (0.0-2.0); EOSINOPHILS % (AUTO) 2.1 % (1.0-6.0); HEMATOCRIT 41.2 % (36-46); HEMOGLOBIN 13.2 g/dL (12.0-16.0); LYMPHOCYTES # (AUTO) 1.1 K/uL (1.0-4.8); LYMPHOCYTES % (AUTO) 10.8 % (22.0-44.0); MEAN CORPUSCULAR HEMOGLOBIN 27.8 pg (26.0-34.0); MEAN CORPUSCULAR HGB CONC 32.1 G/dL (31.0-37.0); MEAN CORPUSCULAR VOLUME 87 fL (80-100); MONOCYTES # (AUTO) 0.9 K/uL (0.1-1.0); MONOCYTES % (AUTO) 8.5 % (2.0-9.0); NEUTROPHILS # (AUTO) 8.2 K/uL (1.8-7.7); NEUTROPHILS % (AUTO) 78.2 % (40.0-70.0); PLATELET COUNT (AUTO) 295 K/uL (150-450); RED BLOOD CELL COUNT(AUTO) 4.76 MIL/uL (4.00-5.20); RED CELL DISTRIBUTION WIDTH 18.5 % (11.5-14.5)
[2019-01-11 09:50] LABS: PROTHROMBIN TIME 9.7 SEC (9.4-11.6)
[2019-01-11 10:00] LABS: LACTIC ACID 1.3 mmol/L (0.4-2.0)
[2019-01-11 10:07] LABS: ALANINE AMINOTRANSFERASE 10 U/L (12-78); ALBUMIN 3.5 g/dL (3.4-5.0); ALKALINE PHOSPHATASE 89 U/L (46-116); ANION GAP 10 mmol/L (8-16); ASPARTATE AMINOTRANSFERASE 9 U/L (15-37); BILIRUBIN,TOTAL 0.5 mg/dL (0.1-1.0); CALCIUM, TOTAL 8.6 mg/dL (8.8-10.5); CARBON DIOXIDE 28 mmol/L (22-29); CHLORIDE 102 mmol/L (98-107); CREATININE 0.85 mg/dL (0.60-1.30); GLOMERULAR FILTR. RATE CALC > 60 mL/min (>60); GLUCOSE,RANDOM 98 mg/dL (70-110); SODIUM SERUM 140 mmol/L (136-145); TOTAL PROTEIN, SERUM 7.1 g/dL (6.4-8.2); UREA NITROGEN, BLOOD 13 mg/dL (7-18)
[2019-01-11 10:09] LABS: POTASSIUM 2.8 mmol/L (3.5-5.1)
[2019-01-11] MEDS ORDERED: POTASSIUM CHLORIDE 20 MEQ ER TABLET PO ONE (10:15)
[2019-01-11] MEDS ORDERED: PredniSONE 20 MG TABLET PO ONE (12:30)
[2019-01-11 13:00] LABS: ANION GAP 10 mmol/L (8-16); CALCIUM, TOTAL 8.4 mg/dL (8.8-10.5); CARBON DIOXIDE 27 mmol/L (22-29); CHLORIDE 104 mmol/L (98-107); CREATININE 0.89 mg/dL (0.60-1.30); GLOMERULAR FILTR. RATE CALC > 60 mL/min (>60); GLUCOSE,RANDOM 110 mg/dL (70-110); POTASSIUM 3.3 mmol/L (3.5-5.1); SODIUM SERUM 141 mmol/L (136-145); UREA NITROGEN, BLOOD 11 mg/dL (7-18)
[2019-01-11 13:06] LABS: ALANINE AMINOTRANSFERASE 12 U/L (12-78); ALBUMIN 3.1 g/dL (3.4-5.0); ALKALINE PHOSPHATASE 83 U/L (46-116); ASPARTATE AMINOTRANSFERASE 10 U/L (15-37); BILIRUBIN,TOTAL 0.3 mg/dL (0.1-1.0); TOTAL PROTEIN, SERUM 6.6 g/dL (6.4-8.2)
[2019-01-11 15:15] VITALS: BP 164/98
== END 2019-01-11 16:20 | disposition short-term general hospital (02) ==
LOC: EMS 08:30
DX: J45.901 Unspecified asthma with (acute) exacerbation (principal); E87.6 Hypokalemia; L03.213 Periorbital cellulitis; H05.011 Cellulitis of right orbit; G43.909 Migraine, unspecified, not intractable, without status migrainosus; I10 Essential (primary) hypertension; F14.90 Cocaine use, unspecified, uncomplicated; F12.90 Cannabis use, unspecified, uncomplicated; Z90.49 Acquired absence of other specified parts of digestive tract
CPT/HCPCS: 36415; 70460; 70487; 71045; 80053; 83605; 83735; 83880; 84484; 85025; 85610; 87040; 93005; 94640; 96365; 96366; 96367; 96375; 96376; 99291; J0696; J1885; J3370; J7030; J7060; J7512; Q9967

== ENCOUNTER 2019-03-25 15:43 | Emergency (ER) | payer OTHER ==
[~2019-03-25] VITALS: Ht 170.2 cm; Wt 58.6 kg
[2019-03-25] MEDS ORDERED: DiphenhydrAMINE HCL 50 MG/ML VIAL IVP ONE (16:15)
[2019-03-25] MEDS ORDERED: METOCLOPRAMIDE HCL 5 MG/ML 2 ML VIAL IVP ONE (16:15)
[2019-03-25] MEDS ORDERED: ACETAMINOPHEN 500 MG TABLET PO ONE (16:15)
[2019-03-25] MEDS ORDERED: ALBUTEROL SULFATE 2.5 MG/0.5 ML NEB SOLUTION NEB ONE (16:15)
[2019-03-25] MEDS ORDERED: MethylPREDNISolone SOD SUCC 125 MG/2 ML VIAL IVP ONE (16:15)
[2019-03-25] MEDS ORDERED: IPRATROPIUM BROMIDE 0.5 MG/2.5 ML NEB SOLUTION NEB ONE (16:15)
[2019-03-25 16:36] LABS: BASOPHILS % (AUTO) 1.2 % (0.0-2.0); HEMATOCRIT 37.7 % (36-46); HEMOGLOBIN 12.1 g/dL (12.0-16.0); LYMPHOCYTES # (AUTO) 1.7 K/uL (1.0-4.8); LYMPHOCYTES % (AUTO) 24.3 % (22.0-44.0); MEAN CORPUSCULAR HEMOGLOBIN 26.9 pg (26.0-34.0); MEAN CORPUSCULAR HGB CONC 31.9 G/dL (31.0-37.0); MEAN CORPUSCULAR VOLUME 84 fL (80-100); MONOCYTES # (AUTO) 0.6 K/uL (0.1-1.0); MONOCYTES % (AUTO) 9.2 % (2.0-9.0); NEUTROPHILS # (AUTO) 3.1 K/uL (1.8-7.7); PLATELET COUNT (AUTO) 319 K/uL (150-450); RED BLOOD CELL COUNT(AUTO) 4.49 MIL/uL (4.00-5.20); RED CELL DISTRIBUTION WIDTH 16.3 % (11.5-14.5)
[2019-03-25 16:37] LABS: EOSINOPHILS % (AUTO) 19.3 % (1.0-6.0)
[2019-03-25 16:51] LABS: PROTHROMBIN TIME 9.8 SEC (9.4-11.6)
[2019-03-25 16:53] LABS: B-TYPE NATRIURETIC PEPTIDE 36 pg/mL (0-100)
[2019-03-25 16:55] LABS: ANION GAP 14 mmol/L (8-16); CARBON DIOXIDE 20 mmol/L (22-29); CHLORIDE 107 mmol/L (98-107); GLOMERULAR FILTR. RATE CALC > 60 mL/min (>60); GLUCOSE,RANDOM 98 mg/dL (70-110); POTASSIUM 3.2 mmol/L (3.5-5.1); SODIUM SERUM 141 mmol/L (136-145); UREA NITROGEN, BLOOD 11 mg/dL (7-18)
[2019-03-25] MEDS ORDERED: POTASSIUM CHLORIDE 20 MEQ ER TABLET PO ONE (17:15)
[2019-03-25 17:21] LABS: ALANINE AMINOTRANSFERASE 20 U/L (12-78); ALBUMIN 3.6 g/dL (3.4-5.0); ALKALINE PHOSPHATASE 111 U/L (46-116); ASPARTATE AMINOTRANSFERASE 15 U/L (15-37); BILIRUBIN,TOTAL 0.4 mg/dL (0.1-1.0); CREATINE KINASE, TOTAL ONLY 112 U/L (26-192); TOTAL PROTEIN, SERUM 7.1 g/dL (6.4-8.2)
[2019-03-25] MEDS ORDERED: ALBUTEROL SULFATE HFA 90 MCG/PUFF 8 GM INHALER IH ONE (18:00)
[2019-03-25 18:40] VITALS: BP 153/87
== END 2019-03-25 17:42 | disposition home or self-care (01) ==
LOC: EMS 15:44
DX: J44.1 Chronic obstructive pulmonary disease with (acute) exacerbation (principal); G43.909 Migraine, unspecified, not intractable, without status migrainosus; I10 Essential (primary) hypertension; F11.90 Opioid use, unspecified, uncomplicated; F12.90 Cannabis use, unspecified, uncomplicated; Z90.49 Acquired absence of other specified parts of digestive tract; Z98.890 Other specified postprocedural states; Z79.899 Other long term (current) drug therapy
CPT/HCPCS: 36415; 71045; 80053; 82550; 83880; 84484; 85025; 85610; 85730; 93005; 94640; 96374; 96375; 99285; J1200; J2765; J2930; 94060; J3535

== ENCOUNTER 2019-04-04 00:59 | Inpatient (IN) | payer OTHER ==
[~2019-04-04] VITALS: Ht 170.2 cm; Wt 62.2 kg
[~2019-04-04 00:59] MED LIST changes: -CILO2.5OS OD; -DOXY150T5 PO; -GUAIF600 PO; -MEDR4 PO
[2019-04-04] MEDS ORDERED: 0.9% SODIUM CHLORIDE 5 ML NEB SOLUTION NEB ONE (01:14)
[2019-04-04] MEDS ORDERED: IPRATROPIUM BROMIDE 0.5 MG/2.5 ML NEB SOLUTION NEB ONE (01:15)
[2019-04-04] MEDS ORDERED: ALBUTEROL SULFATE 5 MG/ML 20 ML NEB SOLN [BULK] NEB ONE (01:15)
[2019-04-04] MEDS ORDERED: MethylPREDNISolone SOD SUCC 125 MG/2 ML VIAL IVP ONE (01:15)
[2019-04-04] MEDS ORDERED: MAGNESIUM SULFATE 2 GM/WATER 50 ML IV ONE (01:15)
[2019-04-04 01:43] LABS: BASOPHILS % (AUTO) 0.6 % (0.0-2.0); HEMATOCRIT 37.6 % (36-46); HEMOGLOBIN 11.8 g/dL (12.0-16.0); LYMPHOCYTES # (AUTO) 1.5 K/uL (1.0-4.8); LYMPHOCYTES % (AUTO) 21.6 % (22.0-44.0); MEAN CORPUSCULAR HEMOGLOBIN 26.8 pg (26.0-34.0); MEAN CORPUSCULAR HGB CONC 31.5 G/dL (31.0-37.0); MEAN CORPUSCULAR VOLUME 85 fL (80-100); MONOCYTES # (AUTO) 0.6 K/uL (0.1-1.0); MONOCYTES % (AUTO) 9.5 % (2.0-9.0); NEUTROPHILS # (AUTO) 3.6 K/uL (1.8-7.7); NEUTROPHILS % (AUTO) 52.5 % (40.0-70.0); PLATELET COUNT (AUTO) 297 K/uL (150-450); RED BLOOD CELL COUNT(AUTO) 4.42 MIL/uL (4.00-5.20); RED CELL DISTRIBUTION WIDTH 16.3 % (11.5-14.5)
[2019-04-04 01:45] LABS: EOSINOPHILS % (AUTO) 15.8 % (1.0-6.0)
[2019-04-04 02:07] LABS: ALBUMIN 3.4 g/dL (3.4-5.0); BILIRUBIN,TOTAL 0.2 mg/dL (0.1-1.0); CALCIUM, TOTAL 8.4 mg/dL (8.8-10.5); CREATININE 1.28 mg/dL (0.60-1.30); TOTAL PROTEIN, SERUM 6.6 g/dL (6.4-8.2)
[2019-04-04 02:08] LABS: POTASSIUM 3.1 mmol/L (3.5-5.1)
[2019-04-04] MEDS ORDERED: CETI5TAB14 PO (02:10)
[2019-04-04] MEDS ORDERED: UMEC62.5 PUFF (02:10)
[2019-04-04] MEDS ORDERED: ACETAMINOPHEN 325 MG TABLET PO PRN (02:15)
[2019-04-04] MEDS ORDERED: ONDANSETRON HCL 4 MG/2 ML VIAL IVP PRN (02:15)
[2019-04-04] MEDS ORDERED: 0.9% SODIUM CHLORIDE 10 ML SYRINGE IVP PRN (02:15)
[2019-04-04 03:37] LABS: INFLUENZA TYPE A NEGATIVE FOR TYPE A (NEGATIVE); INFLUENZA TYPE B NEGATIVE FOR TYPE B (NEGATIVE)
[2019-04-04] MEDS: ALBUTEROL SULFATE 2.5 MG/0.5 ML NEB SOLUTION NEB SCH ×6 (03:44→23:00)
[2019-04-04] MEDS: IPRATROPIUM BROMIDE 0.5 MG/2.5 ML NEB SOLUTION NEB SCH ×6 (03:44→23:00)
[2019-04-04] MEDS ORDERED: DEXTROSE 50%-WATER 25 GM/50 ML SYRINGE IVP PRN (08:45)
[2019-04-04] MEDS ORDERED: POTASSIUM CHL 10 MEQ/WATER 50 ML IV PRN (08:45)
[2019-04-04] MEDS ORDERED: POTASSIUM CHLORIDE 20 MEQ ER TABLET PO PRN (08:45)
[2019-04-04] MEDS: AZITHROMYCIN 500 MG/NS 250 ML IV SCH (09:05)
[2019-04-04 11:50] LABS: GLUCOSE,POINT OF CARE 148 MG/DL (70-110)
[2019-04-04] MEDS: MethylPREDNISolone SOD SUCC 125 MG/2 ML VIAL IVP SCH ×3 (12:07→23:43)
[2019-04-04] MEDS: INSULIN LISPRO 100 UNITS/ML SQ PRN ×2 (12:08→21:04)
[2019-04-04 12:37] LABS: APPEARANCE,URINE CLEAR (CLEAR); BILIRUBIN,URINE NEGATIVE (NEGATIVE); GLUCOSE, URINE (UA) 500 mg/dL (NEGATIVE); KETONES,URINE NEGATIVE (NEGATIVE); LEUKOCYTE ESTERASE ,URINE NEGATIVE (NEGATIVE); NITRATE,URINE NEGATIVE (NEGATIVE); OCCULT BLOOD,URINE NEGATIVE (NEGATIVE); PH,URINE 5.5 (5.0-8.0); PROTEIN,URINE NEGATIVE (NEGATIVE); UROBILINOGEN,URINE 0.2 mg/dL (<=1.0)
[2019-04-04 12:39] LABS: BACTERIA,URINE None Seen /HPF (None Seen); RBC,URINE None Seen /HPF (0-2); WBC,URINE None Seen /HPF (0-5)
[2019-04-04 17:19] VITALS: BP 130/73
[2019-04-04] MEDS: LORazepam 2 MG/ML VIAL IVP PRN (18:08)
[2019-04-04 19:24] VITALS: BP 134/75
[2019-04-04 23:44] VITALS: BP 141/79
[2019-04-05] MEDS: IPRATROPIUM BROMIDE 0.5 MG/2.5 ML NEB SOLUTION NEB SCH ×5 (02:09→23:22)
[2019-04-05] MEDS: SUMAtriptan SUCCINATE 25 MG TABLET PO PRN ×2 (02:38→19:38)
[2019-04-05] MEDS: LORazepam 2 MG/ML VIAL IVP PRN ×2 (02:47→21:01)
[2019-04-05 03:13] VITALS: BP 146/98
[2019-04-05 05:27] LABS: GLUCOMETER DEV NAME(LOC) 5S.2A; GLUCOSE,POINT OF CARE 143 MG/DL (70-110)
[2019-04-05 05:44] LABS: GLUCOMETER DEV NAME(LOC) 5S.2A; GLUCOSE,POINT OF CARE 120 MG/DL (70-110)
[2019-04-05] MEDS: MethylPREDNISolone SOD SUCC 125 MG/2 ML VIAL IVP SCH ×4 (05:46→23:32)
[2019-04-05 05:50] LABS: BASOPHILS % (AUTO) 0.2 % (0.0-2.0); EOSINOPHILS % (AUTO) 0 % (1.0-6.0); HEMATOCRIT 36.2 % (36-46); HEMOGLOBIN 11.5 g/dL (12.0-16.0); LYMPHOCYTES % (AUTO) 5.3 % (22.0-44.0); MEAN CORPUSCULAR HEMOGLOBIN 26.8 pg (26.0-34.0); MEAN CORPUSCULAR HGB CONC 31.7 G/dL (31.0-37.0); MEAN CORPUSCULAR VOLUME 85 fL (80-100); MONOCYTES # (AUTO) 1.3 K/uL (0.1-1.0); MONOCYTES % (AUTO) 7.5 % (2.0-9.0); NEUTROPHILS # (AUTO) 15.7 K/uL (1.8-7.7); PLATELET COUNT (AUTO) 309 K/uL (150-450); RED BLOOD CELL COUNT(AUTO) 4.28 MIL/uL (4.00-5.20); RED CELL DISTRIBUTION WIDTH 16.3 % (11.5-14.5)
[2019-04-05 06:13] LABS: ALANINE AMINOTRANSFERASE 21 U/L (12-78); ALBUMIN 3.3 g/dL (3.4-5.0); ALKALINE PHOSPHATASE 90 U/L (46-116); ANION GAP 10 mmol/L (8-16); ASPARTATE AMINOTRANSFERASE 13 U/L (15-37); BILIRUBIN,TOTAL 0.1 mg/dL (0.1-1.0); CALCIUM, TOTAL 8.8 mg/dL (8.8-10.5); CARBON DIOXIDE 24 mmol/L (22-29); CHLORIDE 108 mmol/L (98-107); CREATININE 1.06 mg/dL (0.60-1.30); GLOMERULAR FILTR. RATE CALC > 60 mL/min (>60); GLUCOSE,RANDOM 118 mg/dL (70-110); POTASSIUM 3.9 mmol/L (3.5-5.1); SODIUM SERUM 142 mmol/L (136-145); TOTAL PROTEIN, SERUM 6.6 g/dL (6.4-8.2); UREA NITROGEN, BLOOD 13 mg/dL (7-18)
[2019-04-05] MEDS ORDERED: SODIUM CHLORIDE 0.9% 250 ML IV ONE (08:41)
[2019-04-05] MEDS: AZITHROMYCIN 500 MG/NS 250 ML IV SCH (08:57)
[2019-04-05] MEDS ORDERED: ALBUTEROL SULFATE 2.5 MG/0.5 ML NEB SOLUTION NEB ONE (10:00)
[2019-04-05] MEDS ORDERED: IPRATROPIUM BROMIDE 0.5 MG/2.5 ML NEB SOLUTION NEB ONE (10:00)
[2019-04-05] MEDS ORDERED: ACETAMINOPHEN 325 MG TABLET PO PRN ×2 (10:30→10:45)
[2019-04-05] MEDS ORDERED: MAGNESIUM HYDROXIDE SUSPENSION 30 ML UDCUP PO PRN (10:45)
[2019-04-05] MEDS ORDERED: IPRATROPIUM BROMIDE 0.5 MG/2.5 ML NEB SOLUTION NEB PRN (10:45)
[2019-04-05] MEDS ORDERED: ALBUTEROL SULFATE 2.5 MG/0.5 ML NEB SOLUTION NEB PRN (10:45)
[2019-04-05] MEDS: PROMETH/PHENYLEPHRINE/CODEINE 5 ML ORAL.SYG PO PRN ×2 (11:15→23:32)
[2019-04-05] MEDS: INSULIN LISPRO 100 UNITS/ML SQ PRN (11:17)
[2019-04-05] MEDS: ALBUTEROL SULFATE 2.5 MG/0.5 ML NEB SOLUTION NEB SCH ×4 (11:19→23:22)
[2019-04-05] MEDS: OxyCODONE HCL/ACETAMINOPHEN 5-325 MG TABLET PO PRN ×2 (11:19→16:03)
[2019-04-05 11:32] LABS: GLUCOMETER DEV NAME(LOC) 5S.2A; GLUCOSE,POINT OF CARE 178 MG/DL (70-110)
[2019-04-05 12:04] VITALS: BP 151/89
[2019-04-05 12:06] VITALS: BP 151/89
[2019-04-05 15:56] VITALS: BP 146/80
[2019-04-05] MEDS: BENZONATATE 100 MG CAPSULE PO SCH (16:02)
[2019-04-05] MEDS: HEPARIN SODIUM,PORCINE 5,000 UNITS/ML VIAL SQ SCH ×2 (16:02→23:32)
[2019-04-05 20:23] VITALS: BP 144/95
[2019-04-05] MEDS: DOCUSATE SODIUM 100 MG CAPSULE PO SCH (20:59)
[2019-04-06 00:23] VITALS: BP 139/86
[2019-04-06 02:13] LABS: GLUCOMETER DEV NAME(LOC) 5S.1; GLUCOSE,POINT OF CARE 140 MG/DL (70-110)
[2019-04-06] MEDS: ALBUTEROL SULFATE 2.5 MG/0.5 ML NEB SOLUTION NEB SCH ×3 (03:00→12:31)
[2019-04-06] MEDS: IPRATROPIUM BROMIDE 0.5 MG/2.5 ML NEB SOLUTION NEB SCH ×3 (03:00→12:31)
[2019-04-06 04:45] VITALS: BP 135/50
[2019-04-06] MEDS: LORazepam 2 MG/ML VIAL IVP PRN (06:02)
[2019-04-06] MEDS: MethylPREDNISolone SOD SUCC 125 MG/2 ML VIAL IVP SCH (06:06)
[2019-04-06] MEDS: PROMETH/PHENYLEPHRINE/CODEINE 5 ML ORAL.SYG PO PRN (06:06)
[2019-04-06 07:16] VITALS: BP 147/94
[2019-04-06 07:49] LABS: EOSINOPHILS % (AUTO) 0 % (1.0-6.0); HEMATOCRIT 34.3 % (36-46); HEMOGLOBIN 10.7 g/dL (12.0-16.0); LYMPHOCYTES # (AUTO) 0.6 K/uL (1.0-4.8); LYMPHOCYTES % (AUTO) 3.4 % (22.0-44.0); MEAN CORPUSCULAR HEMOGLOBIN 26.7 pg (26.0-34.0); MEAN CORPUSCULAR HGB CONC 31.3 G/dL (31.0-37.0); MEAN CORPUSCULAR VOLUME 86 fL (80-100); MONOCYTES # (AUTO) 0.3 K/uL (0.1-1.0); MONOCYTES % (AUTO) 1.8 % (2.0-9.0); NEUTROPHILS # (AUTO) 16.6 K/uL (1.8-7.7); NEUTROPHILS % (AUTO) 94.8 % (40.0-70.0); PLATELET COUNT (AUTO) 296 K/uL (150-450); RED BLOOD CELL COUNT(AUTO) 4.01 MIL/uL (4.00-5.20); RED CELL DISTRIBUTION WIDTH 16.6 % (11.5-14.5)
[2019-04-06 08:05] LABS: ALANINE AMINOTRANSFERASE 20 U/L (12-78); ALBUMIN 3.1 g/dL (3.4-5.0); ALKALINE PHOSPHATASE 78 U/L (46-116); ANION GAP 10 mmol/L (8-16); ASPARTATE AMINOTRANSFERASE 11 U/L (15-37); BILIRUBIN,TOTAL 0.2 mg/dL (0.1-1.0); CALCIUM, TOTAL 8.7 mg/dL (8.8-10.5); CARBON DIOXIDE 24 mmol/L (22-29); CHLORIDE 109 mmol/L (98-107); CREATININE 1.08 mg/dL (0.60-1.30); GLOMERULAR FILTR. RATE CALC > 60 mL/min (>60); GLUCOSE,RANDOM 128 mg/dL (70-110); POTASSIUM 3.8 mmol/L (3.5-5.1); SODIUM SERUM 143 mmol/L (136-145); TOTAL PROTEIN, SERUM 6.2 g/dL (6.4-8.2); UREA NITROGEN, BLOOD 16 mg/dL (7-18)
[2019-04-06] MEDS: DOCUSATE SODIUM 100 MG CAPSULE PO SCH (08:10)
[2019-04-06] MEDS: HEPARIN SODIUM,PORCINE 5,000 UNITS/ML VIAL SQ SCH (08:14)
[2019-04-06] MEDS: AZITHROMYCIN 500 MG/NS 250 ML IV SCH (08:16)
[2019-04-06] MEDS: BENZONATATE 100 MG CAPSULE PO SCH ×2 (08:16)
[2019-04-06 08:34] LABS: GLUCOMETER DEV NAME(LOC) 5S.1; GLUCOSE,POINT OF CARE 108 MG/DL (70-110)
[2019-04-06] MEDS ORDERED: FAMOTIDINE 20 MG TABLET PO SCH (09:00)
[2019-04-06 11:10] LABS: GLUCOMETER DEV NAME(LOC) 5S.2A; GLUCOSE,POINT OF CARE 134 MG/DL (70-110)
[2019-04-06] MEDS ORDERED: PROM5SYR2 PO (11:30)
[2019-04-06] MEDS ORDERED: PRED20 PO (11:31)
[2019-04-06 11:51] VITALS: BP 149/86
[2019-04-06 23:32] LABS: GLUCOMETER DEV NAME(LOC) 5S.1; GLUCOSE,POINT OF CARE 131 MG/DL (70-110)
[2019-04-07] MEDS ORDERED: PredniSONE 20 MG TABLET PO SCH (10:00)
== END 2019-04-06 13:15 | disposition home or self-care (01) | DRG 140 ==
LOC: EMS 00:59 → 5S 16:52
PROVIDERS: ADMIT Internal Medicine; ATTEND Internal Medicine
PROC: 5A09357 Assistance with Respiratory Ventilation, Less than 24 Consecutive Hours, Continuous Positive Airway Pressure (ICD-10-PCS; principal; 2019-04-04)
DX: J44.1 Chronic obstructive pulmonary disease with (acute) exacerbation (principal); J96.01 Acute respiratory failure with hypoxia; E43 Unspecified severe protein-calorie malnutrition; J44.0 Chronic obstructive pulmonary disease with (acute) lower respiratory infection; F12.90 Cannabis use, unspecified, uncomplicated; D53.9 Nutritional anemia, unspecified; F14.10 Cocaine abuse, uncomplicated; F15.10 Other stimulant abuse, uncomplicated; F19.10 Other psychoactive substance abuse, uncomplicated; G43.909 Migraine, unspecified, not intractable, without status migrainosus; J40 Bronchitis, not specified as acute or chronic; I10 Essential (primary) hypertension; K21.9 Gastro-esophageal reflux disease without esophagitis; J98.4 Other disorders of lung; Z59.0 Homelessness; Z90.49 Acquired absence of other specified parts of digestive tract; Z87.891 Personal history of nicotine dependence; Z68.21 Body mass index [BMI] 21.0-21.9, adult; Z91.14 Patient's other noncompliance with medication regimen; Z83.6 Family history of other diseases of the respiratory system; Z82.49 Family history of ischemic heart disease and other diseases of the circulatory system; Z82.5 Family history of asthma and other chronic lower respiratory diseases
CPT/HCPCS: 83036; 84132; 87040; 87804; 93005; 94640; 94660; 96365; 99291; J0456; J1644; J1815; J2060; J2370; J2930; J3475; J7050

== ENCOUNTER 2019-05-19 10:41 | Inpatient (IN) | payer OTHER ==
[~2019-05-19] VITALS: Ht 162.6 cm; Wt 62.2 kg
[~2019-05-19 10:41] MED LIST changes: +PRED20 PO; +PROM5SYR2 PO; +UMEC62.5 PUFF
[2019-05-19] MEDS ORDERED: ALBUTEROL SULFATE 5 MG/ML 20 ML NEB SOLN [BULK] NEB ONE (11:00)
[2019-05-19] MEDS ORDERED: IPRATROPIUM BROMIDE 0.5 MG/2.5 ML NEB SOLUTION NEB ONE (11:00)
[2019-05-19] MEDS ORDERED: MethylPREDNISolone SOD SUCC 125 MG/2 ML VIAL IVP ONE (11:00)
[2019-05-19 11:16] LABS: HEMATOCRIT 39.9 % (36-46); HEMOGLOBIN 12.5 g/dL (12.0-16.0); MEAN CORPUSCULAR HEMOGLOBIN 26.4 pg (26.0-34.0); MEAN CORPUSCULAR HGB CONC 31.3 G/dL (31.0-37.0); MEAN CORPUSCULAR VOLUME 84 fL (80-100); PLATELET COUNT (AUTO) 293 K/uL (150-450); RED BLOOD CELL COUNT(AUTO) 4.74 MIL/uL (4.00-5.20); RED CELL DISTRIBUTION WIDTH 17.5 % (11.5-14.5)
[2019-05-19 11:41] LABS: INFLUENZA TYPE A NEGATIVE FOR TYPE A (NEGATIVE); INFLUENZA TYPE B NEGATIVE FOR TYPE B (NEGATIVE)
[2019-05-19 11:44] LABS: CALCIUM, TOTAL 8.8 mg/dL (8.8-10.5); CREATININE 1.13 mg/dL (0.60-1.30); POTASSIUM 3.7 mmol/L (3.5-5.1)
[2019-05-19 11:48] LABS: ALBUMIN 3.2 g/dL (3.4-5.0); BILIRUBIN,TOTAL 0.2 mg/dL (0.1-1.0); TOTAL PROTEIN, SERUM 6.6 g/dL (6.4-8.2)
[2019-05-19] MEDS ORDERED: ACETAMINOPHEN 325 MG TABLET PO PRN (12:00)
[2019-05-19 12:02] LABS: BAND NEUTROPHILS % (MANUAL) 0 % (0-5)
[2019-05-19 12:03] LABS: EOSINOPHILS % (MANUAL) 10 % (1-6); LYMPHOCYTES % (MANUAL) 23 % (22-44); MONOCYTES % (MANUAL) 1 % (2-9); SEGMENTED NEUTROPHILS % 66 % (40-70)
[2019-05-19] MEDS: AZITHROMYCIN 500 MG/NS 250 ML IV SCH (12:16)
[2019-05-19 12:46] LABS: LACTIC ACID 2.1 mmol/L (0.4-2.0)
[2019-05-19] MEDS: HEPARIN SODIUM,PORCINE 5,000 UNITS/ML VIAL SQ SCH (17:37)
[2019-05-19] MEDS: MethylPREDNISolone SOD SUCC 125 MG/2 ML VIAL IVP SCH (17:38)
[2019-05-19] MEDS: LORazepam 1 MG TABLET PO PRN (18:16)
[2019-05-19] MEDS: DOCUSATE SODIUM 100 MG CAPSULE PO SCH (22:05)
[2019-05-20 00:55] VITALS: BP 145/75
[2019-05-20] MEDS: ALBUTEROL SULFATE 2.5 MG/0.5 ML NEB SOLUTION NEB PRN ×2 (01:19→14:27)
[2019-05-20] MEDS: IPRATROPIUM BROMIDE 0.5 MG/2.5 ML NEB SOLUTION NEB PRN ×2 (01:19→14:27)
[2019-05-20] MEDS: HEPARIN SODIUM,PORCINE 5,000 UNITS/ML VIAL SQ SCH ×4 (05:25→23:05)
[2019-05-20] MEDS: MethylPREDNISolone SOD SUCC 125 MG/2 ML VIAL IVP SCH ×5 (05:25→22:56)
[2019-05-20 08:29] VITALS: BP 143/84
[2019-05-20] MEDS: FAMOTIDINE 20 MG TABLET PO SCH (08:38)
[2019-05-20] MEDS: DOCUSATE SODIUM 100 MG CAPSULE PO SCH (08:39)
[2019-05-20] MEDS: LORazepam 1 MG TABLET PO PRN ×3 (08:46→23:04)
[2019-05-20] MEDS ORDERED: TraZODone HCL 50 MG TABLET PO PRN (11:15)
[2019-05-20] MEDS ORDERED: BENZONATATE 100 MG CAPSULE PO PRN (11:15)
[2019-05-20] MEDS: ALBUTEROL SULFATE 2.5 MG/0.5 ML NEB SOLUTION NEB SCH ×2 (11:46→19:50)
[2019-05-20] MEDS: IPRATROPIUM BROMIDE 0.5 MG/2.5 ML NEB SOLUTION NEB SCH ×2 (11:46→19:50)
[2019-05-20 12:01] VITALS: BP 140/74
[2019-05-20 12:33] LABS: BASOPHILS % (AUTO) 0.2 % (0.0-2.0); EOSINOPHILS % (AUTO) 0 % (1.0-6.0); HEMATOCRIT 37.5 % (36-46); HEMOGLOBIN 11.5 g/dL (12.0-16.0); LYMPHOCYTES # (AUTO) 0.6 K/uL (1.0-4.8); LYMPHOCYTES % (AUTO) 4.8 % (22.0-44.0); MEAN CORPUSCULAR HGB CONC 30.6 G/dL (31.0-37.0); MEAN CORPUSCULAR VOLUME 85 fL (80-100); MONOCYTES # (AUTO) 0.2 K/uL (0.1-1.0); MONOCYTES % (AUTO) 1.6 % (2.0-9.0); NEUTROPHILS # (AUTO) 12.4 K/uL (1.8-7.7); PLATELET COUNT (AUTO) 312 K/uL (150-450); RED BLOOD CELL COUNT(AUTO) 4.42 MIL/uL (4.00-5.20)
[2019-05-20 12:42] LABS: NEUTROPHILS % (AUTO) 93.4 % (40.0-70.0)
[2019-05-20 12:45] LABS: ANION GAP 12 mmol/L (8-16); CARBON DIOXIDE 20 mmol/L (22-29); CHLORIDE 108 mmol/L (98-107); CREATININE 1.14 mg/dL (0.60-1.30); GLOMERULAR FILTR. RATE CALC 59 mL/min (>60); GLUCOSE,RANDOM 122 mg/dL (70-110); POTASSIUM 4.1 mmol/L (3.5-5.1); SODIUM SERUM 140 mmol/L (136-145); UREA NITROGEN, BLOOD 17 mg/dL (7-18)
[2019-05-20] MEDS: PANTOPRAZOLE SODIUM 40 MG DR TABLET PO SCH (13:52)
[2019-05-20] MEDS: AZITHROMYCIN 500 MG/NS 250 ML IV SCH (13:53)
[2019-05-20] MEDS: GuaiFENesin/CODEINE [SUGAR FREE] 200-20MG/10 ML SYRUP UDCUP PO PRN (14:10)
[2019-05-20] MEDS: SUMAtriptan SUCCINATE 25 MG TABLET PO PRN ×2 (14:10→23:00)
[2019-05-20 15:50] VITALS: BP 152/78
[2019-05-20 20:40] VITALS: BP 151/73
[2019-05-20] MEDS: BENZONATATE 100 MG CAPSULE PO SCH (22:55)
[2019-05-20] MEDS: HYDROCODONE/CHLORPHEN POLIS 10-8 MG/5 ML ORAL.SYG PO SCH (22:55)
[2019-05-21] MEDS: IPRATROPIUM BROMIDE 0.5 MG/2.5 ML NEB SOLUTION NEB SCH ×4 (01:27→20:54)
[2019-05-21] MEDS: ALBUTEROL SULFATE 2.5 MG/0.5 ML NEB SOLUTION NEB SCH ×4 (01:27→20:54)
[2019-05-21 04:25] VITALS: BP 148/85
[2019-05-21] MEDS: MethylPREDNISolone SOD SUCC 125 MG/2 ML VIAL IVP SCH ×3 (05:38→19:17)
[2019-05-21] MEDS: GuaiFENesin/CODEINE [SUGAR FREE] 200-20MG/10 ML SYRUP UDCUP PO PRN (05:40)
[2019-05-21] MEDS: LORazepam 1 MG TABLET PO PRN ×2 (05:40→12:47)
[2019-05-21 07:40] VITALS: BP 135/83
[2019-05-21] MEDS: FAMOTIDINE 20 MG TABLET PO SCH (08:53)
[2019-05-21] MEDS: HEPARIN SODIUM,PORCINE 5,000 UNITS/ML VIAL SQ SCH ×2 (08:55→16:53)
[2019-05-21] MEDS: PANTOPRAZOLE SODIUM 40 MG DR TABLET PO SCH (08:55)
[2019-05-21] MEDS: BENZONATATE 100 MG CAPSULE PO SCH ×3 (08:56→21:12)
[2019-05-21] MEDS: DOCUSATE SODIUM 100 MG CAPSULE PO PRN (08:57)
[2019-05-21] MEDS: HYDROCODONE/CHLORPHEN POLIS 10-8 MG/5 ML ORAL.SYG PO SCH ×2 (10:56→21:12)
[2019-05-21 11:26] VITALS: BP 148/78
[2019-05-21] MEDS: AZITHROMYCIN 500 MG/NS 250 ML IV SCH (12:41)
[2019-05-21 15:42] VITALS: BP 141/87
[2019-05-21] MEDS ORDERED: HYDROCODONE/CHLORPHEN POLIS 10-8 MG/5 ML ORAL.SYG PO SCH (21:00)
[2019-05-21 21:04] VITALS: BP 145/79
[2019-05-22 01:14] VITALS: BP 141/82
[2019-05-22] MEDS: HEPARIN SODIUM,PORCINE 5,000 UNITS/ML VIAL SQ SCH ×4 (02:11→22:41)
[2019-05-22] MEDS: GuaiFENesin/CODEINE [SUGAR FREE] 200-20MG/10 ML SYRUP UDCUP PO PRN ×3 (02:12→13:43)
[2019-05-22] MEDS: ALBUTEROL SULFATE 2.5 MG/0.5 ML NEB SOLUTION NEB SCH ×4 (03:16→20:58)
[2019-05-22] MEDS: IPRATROPIUM BROMIDE 0.5 MG/2.5 ML NEB SOLUTION NEB SCH ×4 (03:16→20:59)
[2019-05-22 04:49] VITALS: BP 136/84
[2019-05-22] MEDS: MethylPREDNISolone SOD SUCC 125 MG/2 ML VIAL IVP SCH ×3 (06:00→06:42)
[2019-05-22 07:37] VITALS: BP 155/99
[2019-05-22 08:04] LABS: BASOPHILS % (AUTO) 0.1 % (0.0-2.0); EOSINOPHILS % (AUTO) 0 % (1.0-6.0); HEMATOCRIT 32.3 % (36-46); HEMOGLOBIN 10.4 g/dL (12.0-16.0); LYMPHOCYTES # (AUTO) 0.5 K/uL (1.0-4.8); LYMPHOCYTES % (AUTO) 4.2 % (22.0-44.0); MEAN CORPUSCULAR HEMOGLOBIN 26.9 pg (26.0-34.0); MEAN CORPUSCULAR HGB CONC 32.2 G/dL (31.0-37.0); MEAN CORPUSCULAR VOLUME 83 fL (80-100); MONOCYTES # (AUTO) 0.2 K/uL (0.1-1.0); MONOCYTES % (AUTO) 1.9 % (2.0-9.0); NEUTROPHILS # (AUTO) 11.5 K/uL (1.8-7.7); PLATELET COUNT (AUTO) 261 K/uL (150-450); RED BLOOD CELL COUNT(AUTO) 3.87 MIL/uL (4.00-5.20); RED CELL DISTRIBUTION WIDTH 17.7 % (11.5-14.5)
[2019-05-22 08:14] LABS: NEUTROPHILS % (AUTO) 93.8 % (40.0-70.0)
[2019-05-22 09:05] LABS: ALANINE AMINOTRANSFERASE 16 U/L (12-78); ALBUMIN 2.7 g/dL (3.4-5.0); ALKALINE PHOSPHATASE 90 U/L (46-116); ANION GAP 9 mmol/L (8-16); ASPARTATE AMINOTRANSFERASE 11 U/L (15-37); BILIRUBIN,TOTAL 0.2 mg/dL (0.1-1.0); CALCIUM, TOTAL 7.8 mg/dL (8.8-10.5); CARBON DIOXIDE 23 mmol/L (22-29); CHLORIDE 109 mmol/L (98-107); CREATININE 0.97 mg/dL (0.60-1.30); GLOMERULAR FILTR. RATE CALC > 60 mL/min (>60); GLUCOSE,RANDOM 93 mg/dL (70-110); POTASSIUM 3.8 mmol/L (3.5-5.1); SODIUM SERUM 141 mmol/L (136-145); TOTAL PROTEIN, SERUM 5.5 g/dL (6.4-8.2); UREA NITROGEN, BLOOD 24 mg/dL (7-18)
[2019-05-22] MEDS: BENZONATATE 100 MG CAPSULE PO SCH ×3 (09:56→20:49)
[2019-05-22] MEDS: PredniSONE 20 MG TABLET PO SCH (09:56)
[2019-05-22] MEDS: PANTOPRAZOLE SODIUM 40 MG DR TABLET PO SCH (09:57)
[2019-05-22] MEDS: FAMOTIDINE 20 MG TABLET PO SCH (10:01)
[2019-05-22] MEDS: SUMAtriptan SUCCINATE 25 MG TABLET PO PRN ×3 (10:13→21:00)
[2019-05-22] MEDS: HYDROCODONE/CHLORPHEN POLIS 10-8 MG/5 ML ORAL.SYG PO SCH ×2 (10:14→20:49)
[2019-05-22 11:51] VITALS: BP 169/91
[2019-05-22] MEDS ORDERED: HydrALAZINE HCL 20 MG/ML VIAL IVP PRN (13:30)
[2019-05-22] MEDS: AZITHROMYCIN 500 MG/NS 250 ML IV SCH (13:43)
[2019-05-22 16:22] VITALS: BP_SYST 124; BP_SYST 137; BP_DIAS 100; BP_DIAS 82
[2019-05-22 20:14] VITALS: BP 145/87
[2019-05-22] MEDS: LORazepam 1 MG TABLET PO PRN (22:40)
[2019-05-23] VITALS (7 sets, daily range): BP systolic 132–166; BP diastolic 78–99
[2019-05-23 00:40] LABS: AMPHET/METH SCREEN,URINE NEGATIVE (NEGATIVE); BARBITURATE SCREEN, URINE NEGATIVE (NEGATIVE); BENZODIAZEPINES SCREEN,URINE NEGATIVE (NEGATIVE); CANNABINOID SCREEN,URINE NEGATIVE (NEGATIVE); COCAINE SCREEN,URINE NEGATIVE (NEGATIVE); METHADONE SCREEN, URINE NEGATIVE (NEGATIVE); OPIATE SCREEN,URINE POSITIVE (NEGATIVE)
[2019-05-23 00:41] LABS: PHENCYCLIDINE SCREEN,URINE NEGATIVE (NEGATIVE)
[2019-05-23] MEDS: ALBUTEROL SULFATE 2.5 MG/0.5 ML NEB SOLUTION NEB SCH ×4 (02:55→20:20)
[2019-05-23] MEDS: IPRATROPIUM BROMIDE 0.5 MG/2.5 ML NEB SOLUTION NEB SCH ×4 (02:55→20:20)
[2019-05-23] MEDS: FAMOTIDINE 20 MG TABLET PO SCH (09:00)
[2019-05-23] MEDS: DOCUSATE SODIUM 100 MG CAPSULE PO PRN (10:08)
[2019-05-23] MEDS: BENZONATATE 100 MG CAPSULE PO SCH ×3 (10:09→20:59)
[2019-05-23] MEDS: PredniSONE 20 MG TABLET PO SCH (10:09)
[2019-05-23] MEDS: PANTOPRAZOLE SODIUM 40 MG DR TABLET PO SCH (10:09)
[2019-05-23] MEDS: HEPARIN SODIUM,PORCINE 5,000 UNITS/ML VIAL SQ SCH ×3 (10:09→23:47)
[2019-05-23] MEDS: HYDROCODONE/CHLORPHEN POLIS 10-8 MG/5 ML ORAL.SYG PO SCH ×2 (10:09→20:59)
[2019-05-23] MEDS: LORazepam 1 MG TABLET PO PRN ×2 (10:38→23:47)
[2019-05-23] MEDS: SUMAtriptan SUCCINATE 25 MG TABLET PO PRN ×2 (10:38→21:00)
[2019-05-23] MEDS: AZITHROMYCIN 500 MG/NS 250 ML IV SCH (12:30)
[2019-05-24] MEDS: ALBUTEROL SULFATE 2.5 MG/0.5 ML NEB SOLUTION NEB SCH ×2 (01:50→09:14)
[2019-05-24] MEDS: IPRATROPIUM BROMIDE 0.5 MG/2.5 ML NEB SOLUTION NEB SCH ×2 (01:50→09:15)
[2019-05-24 05:23] VITALS: BP 136/86
[2019-05-24 08:02] VITALS: BP 153/78
[2019-05-24] MEDS: BENZONATATE 100 MG CAPSULE PO SCH (08:09)
[2019-05-24] MEDS: FAMOTIDINE 20 MG TABLET PO SCH (08:09)
[2019-05-24] MEDS: PANTOPRAZOLE SODIUM 40 MG DR TABLET PO SCH (08:09)
[2019-05-24] MEDS: LORazepam 1 MG TABLET PO PRN (08:10)
[2019-05-24] MEDS: DOCUSATE SODIUM 100 MG CAPSULE PO PRN (08:10)
[2019-05-24] MEDS: PredniSONE 20 MG TABLET PO SCH (08:11)
[2019-05-24] MEDS: HYDROCODONE/CHLORPHEN POLIS 10-8 MG/5 ML ORAL.SYG PO SCH (08:11)
[2019-05-24] MEDS: HEPARIN SODIUM,PORCINE 5,000 UNITS/ML VIAL SQ SCH (08:11)
[2019-05-24 12:30] VITALS: BP 150/78
[2019-05-24] MEDS: AZITHROMYCIN 500 MG/NS 250 ML IV SCH (12:42)
== END 2019-05-24 14:58 | disposition left against medical advice (07) | DRG 140 ==
LOC: EMS 10:43 → 5N 23:40
PROVIDERS: ADMIT Internal Medicine; ATTEND Internal Medicine
DX: J44.1 Chronic obstructive pulmonary disease with (acute) exacerbation (principal); E43 Unspecified severe protein-calorie malnutrition; G93.41 Metabolic encephalopathy; R65.10 Systemic inflammatory response syndrome (SIRS) of non-infectious origin without acute organ dysfunction; J20.9 Acute bronchitis, unspecified; Z68.23 Body mass index [BMI] 23.0-23.9, adult; F14.10 Cocaine abuse, uncomplicated; F17.200 Nicotine dependence, unspecified, uncomplicated; Z91.14 Patient's other noncompliance with medication regimen; J98.4 Other disorders of lung; K21.9 Gastro-esophageal reflux disease without esophagitis; G43.909 Migraine, unspecified, not intractable, without status migrainosus; I10 Essential (primary) hypertension; J44.0 Chronic obstructive pulmonary disease with (acute) lower respiratory infection
CPT/HCPCS: 83605; 84145; 87635; 87804; 93005; 94640; 94644; 94660; 99291; J0360; J0456; J1644; J2930

== ENCOUNTER 2021-06-25 00:24 | Emergency (ER) | payer OTHER ==
[~2021-06-25] VITALS: Ht 167.6 cm; Wt 56.4 kg
[~2021-06-25 00:24] MED LIST changes: +MONT-35 PO; -MONT10TA21 PO; +PANT-31 PO; -PANT40TA25 PO; +PRED-554 PO; -PRED20 PO; +PROM473S4 PO; -PROM5SYR2 PO
[2021-06-25] MEDS ORDERED: HYDROCODONE/ACETAMINOPHEN 5-325 MG TABLET PO ONE (03:00)
[2021-06-25 04:00] VITALS: BP 130/79
== END 2021-06-25 04:44 | disposition home or self-care (01) ==
LOC: EMS 00:26
DX: R07.89 Other chest pain (principal); M25.562 Pain in left knee; J45.909 Unspecified asthma, uncomplicated; J44.9 Chronic obstructive pulmonary disease, unspecified; I10 Essential (primary) hypertension; G43.909 Migraine, unspecified, not intractable, without status migrainosus; F14.90 Cocaine use, unspecified, uncomplicated; F15.90 Other stimulant use, unspecified, uncomplicated; Z90.49 Acquired absence of other specified parts of digestive tract; Z98.890 Other specified postprocedural states; V89.2XXA Person injured in unspecified motor-vehicle accident, traffic, initial encounter; Y93.89 Activity, other specified; Y92.89 Other specified places as the place of occurrence of the external cause; Y99.8 Other external cause status
CPT/HCPCS: 71101; 72040; 93005; 99284; Z7502; Z7610

== ENCOUNTER 2022-06-06 16:07 | Emergency (ER) | payer OTHER ==
[~2022-06-06] VITALS: Ht 157.5 cm; Wt 52.3 kg
[~2022-06-06 16:07] MED LIST changes: +ALBU18HF12 IH; -ALBU8HFA IH; -IPRA3AMP24 IH; +IPRA3AMP24 NEB; -MULT-1203; +MULT-1203 PO
[2022-06-06] MEDS ORDERED: DICLOFENAC SODIUM 1% 100 GM GEL [4GM] TP ONE (18:00)
[2022-06-06] MEDS ORDERED: HYDROCODONE/ACETAMINOPHEN 5-325 MG TABLET PO ONE (18:00)
[2022-06-06 21:19] VITALS: BP 140/88
== END 2022-06-06 21:53 | disposition home or self-care (01) ==
LOC: EMS 16:09
DX: S93.402A Sprain of unspecified ligament of left ankle, initial encounter (principal); J44.9 Chronic obstructive pulmonary disease, unspecified; F17.210 Nicotine dependence, cigarettes, uncomplicated; F12.90 Cannabis use, unspecified, uncomplicated; F14.90 Cocaine use, unspecified, uncomplicated; W19.XXXA Unspecified fall, initial encounter; Y93.89 Activity, other specified; Y92.89 Other specified places as the place of occurrence of the external cause; Y99.8 Other external cause status
CPT/HCPCS: 99284